=== PATIENT | female | born 1995 | race African-American/Black ===

== ENCOUNTER 2016-10-28 16:58 | Emergency (ER) | payer OTHER ==
[~2016-10-28] VITALS: Ht 160 cm; Wt 68.9 kg
[~2016-10-28 16:58] MED LIST: CIPR-173 PO; TRAM50TA2 PO
[2016-10-28 17:29] VITALS: BP 118/72
[2016-10-29] MEDS ORDERED: VENL75CA78 (15:44)
[2016-10-29] MEDS ORDERED: QUET50TA5 (15:44)
[2016-10-29] MEDS ORDERED: QUET100T46 (15:44)
[2016-10-29] MEDS ORDERED: HYD2T (15:44)
[2016-10-29] MEDS ORDERED: ALPR-229 (15:44)
[2016-10-29] MEDS ORDERED: PREDPOW63 (15:44)
[2016-10-29] MEDS ORDERED: HYDROCO/APAP (15:44)
[2016-10-29] MEDS ORDERED: GABA-339 (15:44)
[2016-10-29] MEDS ORDERED: CIPR-217 (15:44)
== END 2016-10-28 21:45 | disposition left against medical advice (07) ==
LOC: ER 17:04
DX: M79.89 Other specified soft tissue disorders (principal); Z53.21 Procedure and treatment not carried out due to patient leaving prior to being seen by health care provider

== ENCOUNTER 2016-10-31 13:30 | Emergency (ER) | payer OTHER ==
[~2016-10-31] VITALS: Ht 160 cm; Wt 71.2 kg
[~2016-10-31 13:30] MED LIST changes: +ALPR-229; +CIPR-217; +GABA-339; +HYD2T; +HYDROCO/APAP; +PREDPOW63; +QUET100T46; +QUET50TA5; +VENL75CA78
[2016-10-31] MEDS ORDERED: HYDROmorphone HCL 2 MG/ML VL IM ONE (14:00)
[2016-10-31] MEDS ORDERED: ONDANSETRON HCL 4 MG/2 ML VIAL IM ONE (14:00)
[2016-10-31 15:10] VITALS: BP 129/73
== END 2016-10-31 16:03 | disposition home or self-care (01) ==
LOC: EDBD 13:30 → ER 13:33
DX: G89.4 Chronic pain syndrome (principal); M79.7 Fibromyalgia; Z88.0 Allergy status to penicillin; R11.2 Nausea with vomiting, unspecified; M19.90 Unspecified osteoarthritis, unspecified site; Z88.8 Allergy status to other drugs, medicaments and biological substances
CPT/HCPCS: 96372; 99284; J1170; J2405

== ENCOUNTER 2019-04-24 02:54 | Emergency (ER) | payer MEDICAID ==
[~2019-04-24] VITALS: Ht 167.6 cm; Wt 74.8 kg
[2019-04-24] MEDS ORDERED: PROMETHAZINE HCL 25 MG/ML 1ML IV ONE ×2 (05:15→09:15)
[2019-04-24] MEDS ORDERED: HYDROmorphone HCL 2 MG/ML VL IV ONE ×2 (05:15→09:15)
[2019-04-24 06:26] LABS: Albumin 3.2 g/dL (3.4-5.0); Anion Gap 9 (5-15); Blood Urea Nitrogen 8 mg/dL (7-18); Carbon Dioxide 23 mmol/L (21-32); Chloride 111 mmol/L (98-107); Glucose 84 mg/dL (74-106); Potassium 3.2 mmol/L (3.5-5.1); Sodium 143 mmol/L (136-145)
[2019-04-24 06:29] LABS: Alanine Aminotransferase 14 U/L (13-56); Alkaline Phosphatase 118 U/L (45-117); Aspartate Aminotransferase 17 U/L (15-37); Bilirubin, Total 0.2 mg/dL (0.2-1.0); GFR African American 211 mL/min; GFR Non-African American 175 mL/min; Total Protein 6.8 g/dL (6.4-8.2)
[2019-04-24] MEDS ORDERED: LORazepam 2MG/ML-1ML VIAL IV ONE (08:00)
[2019-04-24] MEDS ORDERED: POTASSIUM EFFERVESENT TAB 25 MEQ PO ONE (08:15)
[2019-04-24 09:50] LABS: Basophils # (auto) 0 uL; Eosinophils # (auto) 0 uL; Lymphocytes # (auto) 0.6 uL; Monocytes # (auto) 0.5 uL; Neutrophils # (auto) 1.9 uL; Nucleated Red Blood Cells % 0.2 %
[2019-04-24 09:53] LABS: Basophils % (auto) 0.2 % (0.0-2.0); Eosinophils % (auto) 0.1 % (0.0-7.0); Hematocrit 31.6 % (36.0-46.0); Lymphocytes % (auto) 20.6 % (10.0-50.0); Mean Corpuscular Hgb Conc. 31.8 g/dL (32.0-36.0); Mean Corpuscular Volume 69.2 fL (80.0-100.0); Monocytes % (auto) 16.9 % (0.0-12.0); Neutrophils % (auto) 62.2 % (37.0-80.0); Platelet Count (auto) 299 10^3/uL (140-450); Red Blood Cells 4.56 10^6/uL (4.0-5.20); Red Cell Distribution Width 18.6 % (11.8-14.3)
[2019-04-24] MEDS ORDERED: DexAMETHasone SOD PHOS 4 MG/1ML SDV INJ IV ONE (10:15)
[2019-04-24] MEDS ORDERED: DexAMETHasone SOD PHOS 10MG/1ML VIAL INJ ONE (10:25)
[2019-04-24 10:30] LABS: Urine WBC None Seen /hpf (0 - 5)
[2019-04-24 10:53] LABS: Urine Bacteria FEW /hpf (None Seen); Urine Blood 1+ /uL (Negative); Urine Mucus FEW (None Seen); Urine Specific Gravity 1.013 (1.001-1.035)
[2019-04-24 11:24] VITALS: BP 153/103
[2019-04-24] MEDS ORDERED: ONDANSETRON HCL 4 MG/2 ML VIAL IV ONE (12:00)
[2019-04-24] MEDS ORDERED: SODIUM CHLORIDE 0.9% 1,000 ML IV ONE (12:00)
== END 2019-04-24 12:09 | disposition home or self-care (01) ==
LOC: ER 02:56
DX: M25.562 Pain in left knee (principal); M25.561 Pain in right knee; M06.9 Rheumatoid arthritis, unspecified; E44.1 Mild protein-calorie malnutrition; Z68.26 Body mass index [BMI] 26.0-26.9, adult; E87.6 Hypokalemia; D63.8 Anemia in other chronic diseases classified elsewhere; R42 Dizziness and giddiness; R51 Headache
CPT/HCPCS: 36415; 71045; 80053; 81001; 84484; 84702; 85025; 85045; 93005; 94761; 96374; 96375; 96376; 99284; J1100; J1170; J2060; J2405; J2550; J7030

== ENCOUNTER 2019-05-09 23:16 | Emergency (ER) | payer MEDICAID ==
[~2019-05-09] VITALS: Ht 157.5 cm; Wt 68.0 kg
[2019-05-10 00:14] LABS: Urine Bacteria FEW /hpf (None Seen); Urine Blood Negative /uL (Negative); Urine Mucus FEW (None Seen); Urine Specific Gravity 1.014 (1.001-1.035); Urine WBC 8 /hpf (0 - 5)
[2019-05-10] MEDS ORDERED: HYDROmorphone HCL 2 MG/ML VL IM ONE ×2 (00:15→02:30)
[2019-05-10 01:19] LABS: Albumin 3.3 g/dL (3.4-5.0); Anion Gap 7 (5-15); Aspartate Aminotransferase 25 U/L (15-37); Blood Urea Nitrogen 12 mg/dL (7-18); Calcium 8.9 mg/dL (8.5-10.1); Carbon Dioxide 19 mmol/L (21-32); Chloride 110 mmol/L (98-107); GFR African American 151 mL/min; GFR Non-African American 124 mL/min; Glucose 123 mg/dL (74-106); Potassium 4.8 mmol/L (3.5-5.1); Sodium 136 mmol/L (136-145)
[2019-05-10 01:27] LABS: Alanine Aminotransferase 32 U/L (13-56); Alkaline Phosphatase 142 U/L (45-117); Bilirubin, Total < 0.1 mg/dL (0.2-1.0); Total Protein 7.6 g/dL (6.4-8.2)
[2019-05-10 02:00] VITALS: BP 150/96
== END 2019-05-10 03:44 | disposition home or self-care (01) ==
LOC: EDBD 23:16 → ER 23:18
DX: M79.604 Pain in right leg (principal); M79.605 Pain in left leg; M25.561 Pain in right knee; M25.562 Pain in left knee; M32.9 Systemic lupus erythematosus, unspecified; M06.9 Rheumatoid arthritis, unspecified; R11.2 Nausea with vomiting, unspecified; R51 Headache; R07.9 Chest pain, unspecified; Z88.0 Allergy status to penicillin; Z79.2 Long term (current) use of antibiotics; Z79.899 Other long term (current) drug therapy
CPT/HCPCS: 36415; 71045; 80053; 81001; 81025; 84484; 93005; 96372; 99284; J1170

== ENCOUNTER 2019-05-16 21:46 | Emergency (ER) | payer MEDICAID ==
[~2019-05-16] VITALS: Ht 177.8 cm; Wt 61.2 kg
[2019-05-17] VITALS: BP 159/110
[2019-05-17 00:22] LABS: Basophils # (auto) 0 uL; Eosinophils # (auto) 0 uL; Lymphocytes # (auto) 1.3 uL; Monocytes # (auto) 0.3 uL; Red Cell Distribution Width 19.2 % (11.8-14.3); White Blood Cell 4.3 10^3/uL (4.4-10.8)
[2019-05-17 00:24] LABS: Eosinophils % (auto) 0.7 % (0.0-7.0); Hematocrit 29.3 % (36.0-46.0); Hemoglobin 9.3 g/dL (12.2-16.2); Lymphocytes % (auto) 31.4 % (10.0-50.0); Mean Corpuscular Hemoglobin 22.1 pg (28.0-32.0); Mean Corpuscular Hgb Conc. 31.8 g/dL (32.0-36.0); Mean Corpuscular Volume 69.6 fL (80.0-100.0); Monocytes % (auto) 7.8 % (0.0-12.0); Neutrophils # (auto) 2.5 uL; Neutrophils % (auto) 59.1 % (37.0-80.0); Nucleated Red Blood Cells % 0.1 %; Platelet Count (auto) 153 10^3/uL (140-450)
[2019-05-17 00:37] LABS: Albumin 3.5 g/dL (3.4-5.0); BUN/Creatinine Ratio 24.6; Calcium 8.4 mg/dL (8.5-10.1); Potassium 3.6 mmol/L (3.5-5.1)
[2019-05-17 00:40] LABS: Bilirubin, Total 0.2 mg/dL (0.2-1.0); Total Protein 7.4 g/dL (6.4-8.2)
[2019-05-17] MEDS ORDERED: HYDROmorphone HCL 2 MG/ML VL IV ONE (00:45)
[2019-05-17] MEDS ORDERED: diphenhdrAMINE HCL 50 MG/1 ML VL IV ONE (00:45)
[2019-05-17] MEDS ORDERED: ONDANSETRON HCL 4 MG/2 ML VIAL IV ONE (00:45)
[2019-05-17 01:38] LABS: Urine Bacteria FEW /hpf (None Seen); Urine Blood 1+ /uL (Negative); Urine Specific Gravity 1.016 (1.001-1.035); Urine WBC 6 /hpf (0 - 5)
[2019-06-09] MEDS ORDERED: PRE5T PO (12:58)
[2019-06-09] MEDS ORDERED: FOLI1TAB6 PO (13:04)
[2019-06-09] MEDS ORDERED: MYCO500T3 PO (13:04)
[2019-06-09] MEDS ORDERED: CYAN1TAB14 PO (13:04)
[2019-06-09] MEDS ORDERED: PANT40T PO (13:04)
[2019-06-09] MEDS ORDERED: HYDR-4188 PO (13:04)
[2019-06-09] MEDS ORDERED: FER325T PO (13:04)
== END 2019-05-17 02:44 | disposition home or self-care (01) ==
LOC: EDBD 21:46 → ER 21:51
DX: G89.4 Chronic pain syndrome (principal); M06.9 Rheumatoid arthritis, unspecified; M32.9 Systemic lupus erythematosus, unspecified; E11.9 Type 2 diabetes mellitus without complications
CPT/HCPCS: 36415; 80053; 81001; 85025; 85045; 96374; 96375; 99283; J1170; J1200; J2405; J7030

== ENCOUNTER 2019-05-18 12:40 | Emergency (ER) | payer MEDICAID ==
[~2019-05-18] VITALS: Ht 165.1 cm; Wt 71.2 kg
[2019-05-18 14:35] LABS: Urine Pregnacy Test Negative (Negative)
[2019-05-18 14:40] LABS: Urine Bacteria FEW /hpf (None Seen); Urine Blood 2+ /uL (Negative); Urine Hyaline Cast FEW /lpf (0 - 2); Urine Specific Gravity 1.017 (1.001-1.035); Urine WBC 11 /hpf (0 - 5)
[2019-05-18 14:59] LABS: Alcohol, Urine < 3.0 mg/dL (0-5); Amphetamine Screen, Urine NEGATIVE (NEGATIVE); Barbiturate Scree,Urine NEGATIVE (NEGATIVE); Benzodiazephine Screen, Urine NEGATIVE (NEGATIVE); Cannabinoid Screen, Urine POSITIVE (NEGATIVE); Cocaine Screen, Urine NEGATIVE (NEGATIVE); Opiate Scree,Urine NEGATIVE (NEGATIVE); Phencyclidine Screen, Urine NEGATIVE (NEGATIVE)
[2019-05-18] MEDS ORDERED: SODIUM CHLORIDE 0.9% 1,000 ML IV ONE (16:15)
[2019-05-18] MEDS ORDERED: HYDROmorphone HCL 2 MG/ML VL IM ONE (17:15)
[2019-05-18 17:28] LABS: Mean Corpuscular Volume 68.6 fL (80.0-100.0)
[2019-05-18 17:29] LABS: Hematocrit 33.1 % (36.0-46.0); Hemoglobin 10.5 g/dL (12.2-16.2); Mean Corpuscular Hemoglobin 21.8 pg (28.0-32.0); Mean Corpuscular Hgb Conc. 31.8 g/dL (32.0-36.0); Platelet Count (auto) 394 10^3/uL (140-450); Red Blood Cells 4.82 10^6/uL (4.0-5.20); Red Cell Distribution Width 19.2 % (11.8-14.3)
[2019-05-18 17:30] LABS: Albumin 3.5 g/dL (3.4-5.0); Anion Gap 9 (5-15); Blood Urea Nitrogen 6 mg/dL (7-18); Calcium 8.2 mg/dL (8.5-10.1); Carbon Dioxide 27 mmol/L (21-32); Chloride 106 mmol/L (98-107); Glucose 83 mg/dL (74-106); Sodium 142 mmol/L (136-145)
[2019-05-18 17:31] LABS: Alanine Aminotransferase 38 U/L (13-56); Aspartate Aminotransferase 98 U/L (15-37); BUN/Creatinine Ratio 10.2; GFR African American 162 mL/min; GFR Non-African American 134 mL/min
[2019-05-18 17:33] LABS: Alkaline Phosphatase 127 U/L (45-117); Bilirubin, Total 0.2 mg/dL (0.2-1.0)
[2019-05-18 17:35] LABS: Band Neutrophils % (manual) 0; Basophils % (manual) 0 (0.0-2.0); Blast Cells 0; Eosinophils % (manual) 0 (0-7); Metamyelocytes % 0; Myelocytes % 0; Potassium 2.9 mmol/L (3.5-5.1); Promyelocytes % 0; Reactive Lymphocytes 0
[2019-05-18] MEDS ORDERED: POTASSIUM EFFERVESENT TAB 25 MEQ PO ONE (17:45)
[2019-05-18 18:38] LABS: Lymphocytes % (manual) 20 (10.0-50.0); Monocytes % (manual) 8 (0-12)
[2019-05-18 20:00] VITALS: BP 140/108
== END 2019-05-18 21:24 | disposition home or self-care (01) ==
LOC: ER 12:45
DX: R07.89 Other chest pain (principal); E86.0 Dehydration; F12.10 Cannabis abuse, uncomplicated; E11.9 Type 2 diabetes mellitus without complications; Z88.0 Allergy status to penicillin; Z88.6 Allergy status to analgesic agent; Z88.8 Allergy status to other drugs, medicaments and biological substances
CPT/HCPCS: 36415; 80053; 80307; 81001; 81025; 84484; 85007; 85027; 85045; 93005; 96360; 96372; 99284; J1170; J7030

== ENCOUNTER 2019-05-18 22:23 | Emergency (ER) | payer MEDICAID ==
[~2019-05-18] VITALS: Ht 165.1 cm; Wt 71.2 kg
[2019-05-19 00:32] VITALS: BP 135/86
[2019-05-19] MEDS ORDERED: QUEtiapine FUMARATE 100 MG TAB PO ONE (01:00)
[2019-05-19] MEDS ORDERED: ACETAMINOPHEN 500 MG TAB PO ONE (01:00)
[2019-06-09] MEDS ORDERED: PRE5T PO (12:58)
[2019-06-09] MEDS ORDERED: PANT40T PO (13:04)
[2019-06-09] MEDS ORDERED: FOLI1TAB6 PO (13:04)
[2019-06-09] MEDS ORDERED: HYDR-4188 PO (13:04)
[2019-06-09] MEDS ORDERED: MYCO500T3 PO (13:04)
[2019-06-09] MEDS ORDERED: CYAN1TAB14 PO (13:04)
[2019-06-09] MEDS ORDERED: FER325T PO (13:04)
== END 2019-05-19 01:10 | disposition home or self-care (01) ==
LOC: ER 22:23
DX: F41.9 Anxiety disorder, unspecified (principal); R51 Headache; M19.90 Unspecified osteoarthritis, unspecified site; F12.10 Cannabis abuse, uncomplicated; Z88.0 Allergy status to penicillin; Z88.6 Allergy status to analgesic agent; Z88.8 Allergy status to other drugs, medicaments and biological substances; Z76.0 Encounter for issue of repeat prescription

== ENCOUNTER 2019-05-28 11:27 | Inpatient (IN) | payer MEDICAID ==
[~2019-05-28] VITALS: Ht 165.1 cm; Wt 80.1 kg
[2019-05-28] MEDS ORDERED: SODIUM CHLORIDE 0.9% 1,000 ML IV ONE ×3 (11:56→14:15)
[2019-05-28] MEDS ORDERED: diphenhdrAMINE HCL 50 MG/1 ML VL IV ONE ×2 (12:30→14:15)
[2019-05-28] MEDS ORDERED: HYDROmorphone HCL 2 MG/ML VL IV ONE ×2 (12:30→14:15)
[2019-05-28] MEDS ORDERED: ONDANSETRON HCL 4 MG/2 ML VIAL IV ONE (12:30)
[2019-05-28 12:58] LABS: Basophils # (auto) 0 uL; Eosinophils # (auto) 0 uL; Lymphocytes # (auto) 0.8 uL; Monocytes # (auto) 0.4 uL; Neutrophils # (auto) 1.8 uL
[2019-05-28 13:00] LABS: Basophils % (auto) 0.4 % (0.0-2.0); Hematocrit 28.5 % (36.0-46.0); Lymphocytes % (auto) 27.7 % (10.0-50.0); Mean Corpuscular Hemoglobin 21.2 pg (28.0-32.0); Mean Corpuscular Hgb Conc. 31.5 g/dL (32.0-36.0); Mean Corpuscular Volume 67.2 fL (80.0-100.0); Monocytes % (auto) 11.7 % (0.0-12.0); Neutrophils % (auto) 60.2 % (37.0-80.0); Nucleated Red Blood Cells % 0.1 %; Platelet Count (auto) 448 10^3/uL (140-450); Red Blood Cells 4.24 10^6/uL (4.0-5.20); Red Cell Distribution Width 19.4 % (11.8-14.3)
[2019-05-28 13:26] LABS: Alanine Aminotransferase 43 U/L (13-56); Alkaline Phosphatase 114 U/L (45-117); Anion Gap 8 (5-15); Aspartate Aminotransferase 31 U/L (15-37); BUN/Creatinine Ratio 16.4; Bilirubin, Total 0.1 mg/dL (0.2-1.0); Blood Urea Nitrogen 9 mg/dL (7-18); Calcium 8.4 mg/dL (8.5-10.1); Carbon Dioxide 26 mmol/L (21-32); Chloride 106 mmol/L (98-107); GFR African American 176 mL/min; GFR Non-African American 146 mL/min; Glucose 86 mg/dL (74-106); Sodium 140 mmol/L (136-145); Total Protein 7.3 g/dL (6.4-8.2)
[2019-05-28 13:38] LABS: Urine Bacteria FEW /hpf (None Seen); Urine Blood Negative /uL (Negative); Urine Specific Gravity 1.007 (1.001-1.035); Urine WBC <1 /hpf (0 - 5)
[2019-05-28] MEDS ORDERED: PROMETHAZINE HCL 25 MG/ML 1ML IV PRN (15:30)
[2019-05-28] MEDS ORDERED: MORPHINE SULF INJ 2 MG/ML SYRINGE 1ML IV PRN (15:30)
[2019-05-28] MEDS ORDERED: IPRATROPIUM BROM 0.5 MG/2.5ML INH SOL NEB PRN (15:30)
[2019-05-28] MEDS ORDERED: NITROGLYCERIN 0.4 MG SL TAB SL PRN (15:30)
[2019-05-28] MEDS ORDERED: ALBUTEROL SULF 2.5 MG/0.5ML(0.5%) NEB SOLN NEB PRN (15:30)
[2019-05-28 15:48] VITALS: BP 141/100
--- NOTE | 2019-05-28 15:59 | NUR ---
Respiratory note: PT ASSESMENT DONE FOR Q4PRN TREATMENTS. PT IS AWAKE, ALERT AND RESPONSIVE. NO DISTRESS OR SOD AT THIS TIME. PT ON ROOM AIR SP02 98%. NO TREATMENT INDICATED AT THIS TIME. INFORMED PT TO PUSH CALL BUTTON IF BECOMES SOB AND RT WILL BE PAGED.
[2019-05-28] MEDS: SODIUM CHLORIDE 0.9% 1,000 ML IV SCH (17:22)
--- NOTE | 2019-05-28 17:40 | NUR ---
PATIENT ADMITTED FROM ER. ORIENTED TO TELE UNIT. ROOM 249 BED A. VS WNL. C/O PAIN 9/10 THROUGHOUT BODY REQUESTING BENADRYL AND DILAUDID SOON ALLOWED. EDUCATED PATIENT ON MEDICATION MANAGEMENT AND NON-PHARMACOLOGICAL PAIN MANAGEMENT. PATIENT RESPIRATIONS EVEN AND UNLABORED. FLAT AFFECT NOTED. SEIZURE PRECAUTIONS IN PLACE. BED IN LOWEST LOCKED POSITION. EDUCATED PATIENT ON FALL PRECAUTIONS, PATIENT VERBALIZED UNDERSTANDING, WILL CONTINUE TO MONITOR.
[2019-05-28] MEDS: diphenhdrAMINE HCL 50 MG/1 ML VL IV PRN ×2 (18:18→22:21)
[2019-05-28] MEDS: HYDROmorphone HCL 2 MG/ML VL IV PRN ×2 (18:19→22:21)
[2019-05-28 18:29] VITALS: BP 135/88
--- NOTE | 2019-05-28 18:35 | NUR ---
Respiratory note: AT BEDSIDE TO ASSESS PT FOR PRN TX. TX NOT INDICATED AT THIS TIME. BS ARE CLEAR T/O, HR 110-115. POX 97% ON ROOM AIR. COMMUNICATED PRN ORDERS TO PT. PT ALSO MADE AWARE SHE CAN HAVE ME PAGED AT ANY TIME SHE FEELS SOB OR HAS ANY CONCERN WITH HER BREATHING TO COME FURTHER ASSESS HER. RT NAME AND PAGER ASSIGNMENT WRITTEN ON PTS ROOM BOARD.
[2019-05-28] MEDS ORDERED: DOCU-94 PO (18:54)
--- NOTE | 2019-05-28 19:23 | NUR ---
CARE ENDORSED TO DEIDRA OROSCO.
--- NOTE | 2019-05-28 19:25 | NUR ---
Opening Shift Note Assumed care of patient, awake and alert. No S/S of distress/SOB or pain. Instructed on POC and to call for assist PRN, will continue to monitor for changes Q1hr and PRN.
[2019-05-28 20:00] VITALS: BP 130/72
[2019-05-28 21:51] VITALS: BP 130/72
[2019-05-28 22:00] VITALS: BP 130/72
[2019-05-28] MEDS: HYDROXYCHLOROQUINE SULFATE 200 MG TAB PO SCH (22:21)
[2019-05-28] MEDS: COLCHICINE 0.6 MG CAP PO SCH (22:21)
[2019-05-29] MEDS: SODIUM CHLORIDE 0.9% 1,000 ML IV SCH ×3 (02:07→22:00)
[2019-05-29] MEDS: diphenhdrAMINE HCL 50 MG/1 ML VL IV PRN ×6 (02:11→21:59)
[2019-05-29] MEDS: HYDROmorphone HCL 2 MG/ML VL IV PRN ×6 (02:11→21:59)
[2019-05-29 04:59] VITALS: BP 145/93
--- NOTE | 2019-05-29 07:15 | NUR ---
Open Shift Note Received report on patient, awake and standing in bathroom. Patient shows no signs of distress at this time. Patient returned to bed, discussed POC. Patient states she is waiting for next pain medication. Discussed pain management with patient. Fixed patient's tele stickers to achieve accurate reading. Bed in lowest locked position, side rails up x2 and call light within reach. Patient requested for door to be closed so she can get some sleep. Will continue to monitor.
[2019-05-29 09:00] VITALS: BP 153/90
[2019-05-29] MEDS ORDERED: predniSONE 20 MG TAB PO SCH (10:00)
[2019-05-29] MEDS: MULTIPLE VITAMIN TAB PO SCH (10:00)
[2019-05-29] MEDS: FAMOTIDINE 20 MG TAB PO SCH (10:00)
[2019-05-29] MEDS: FOLIC ACID 1 MG TAB PO SCH (10:00)
[2019-05-29] MEDS: QUEtiapine FUMARATE 100 MG TAB PO SCH (10:07)
[2019-05-29] MEDS: HYDROXYCHLOROQUINE SULFATE 200 MG TAB PO SCH ×2 (10:07→22:37)
[2019-05-29] MEDS: COLCHICINE 0.6 MG CAP PO SCH ×2 (10:08→22:37)
--- NOTE | 2019-05-29 10:10 | NUR ---
Respiratory note: PATIENT ASSESSED FOR PRN MED-NEB TX. MED-NEB NOT INDICATED AT THIS TIME PATIENT IS IN NO ACUTE RESPIRATORY DISTRESS AND DENIES NEED. PATIENT INSTRUCTED TO CALL FOR RT IF SHE FELT THE NEED FOR TX AT A LATER TIME. SPO2 99% R/A
[2019-05-29 13:05] LABS: Basophils # (auto) 0 uL; Basophils % (auto) 0.8 % (0.0-2.0); Eosinophils # (auto) 0 uL; Eosinophils % (auto) 0.2 % (0.0-7.0); Hematocrit 27.6 % (36.0-46.0); Hemoglobin 8.7 g/dL (12.2-16.2); Lymphocytes # (auto) 0.8 uL; Lymphocytes % (auto) 25.7 % (10.0-50.0); Mean Corpuscular Hemoglobin 21.1 pg (28.0-32.0); Mean Corpuscular Hgb Conc. 31.6 g/dL (32.0-36.0); Mean Corpuscular Volume 66.6 fL (80.0-100.0); Monocytes # (auto) 0.3 uL; Monocytes % (auto) 10.5 % (0.0-12.0); Neutrophils # (auto) 1.9 uL; Neutrophils % (auto) 62.8 % (37.0-80.0); Nucleated Red Blood Cells % 0.1 %; Platelet Count (auto) 429 10^3/uL (140-450); Red Blood Cells 4.15 10^6/uL (4.0-5.20); Red Cell Distribution Width 18.7 % (11.8-14.3)
[2019-05-29 17:00] VITALS: BP 144/87
[2019-05-29] MEDS: MYCOPHENOLATE 500 MG TAB PO SCH (22:00)
[2019-05-29 22:10] VITALS: BP 141/93
--- NOTE | 2019-05-29 22:14 | NUR ---
PT ASSESSED FOR PRN MED NEB TX. SPO2 97% ON RA, HR 93. PT DENIES ANY RESPIRATORY DISTRESS. NO TX INDICATED. PT IS AWARE TO HAVE RT PAGED IF TX NEEDED.
[2019-05-29] MEDS: methylPREDNISolone SOD SUCC 40 MG/ML VL IV SCH (22:37)
[2019-05-30] MEDS: diphenhdrAMINE HCL 50 MG/1 ML VL IV PRN ×6 (01:56→21:59)
[2019-05-30] MEDS: HYDROmorphone HCL 2 MG/ML VL IV PRN ×6 (01:56→21:59)
[2019-05-30 05:16] VITALS: BP 140/82
[2019-05-30] MEDS: methylPREDNISolone SOD SUCC 40 MG/ML VL IV SCH ×3 (06:12→21:59)
--- NOTE | 2019-05-30 06:54 | NUR ---
Respiratory note: HR 94, RR 14, SPO2 100% ON RA, BS CLEAR. PRN MED NEB TX NOT INDICATED AT THIS TIME. PT SHOWS NO SIGNS OR SYMPTOMS OF RESPIRATORY DISTRESS. LAB AT BEDSIDE. PT INFORMED TO HIT CALL BUTTON IF FEELING SOB OR WHEEZING.
--- NOTE | 2019-05-30 06:54 | NUR ---
Respiratory note: PT AWAKE AND TAKEN OFF CPAP MACHINE. NO SIGNS OR SYMPTOMS OF RESPIRATORY DISTRESS NOTED. HR 94, RR 14, SPO2 100% ON RA, BS CLEAR. BEDSIDE POX SET UP AND FUNCTIONING PROPERLY. Addendum: 05/30/19 at 0716 by COLLETTE ACUNA RT DISREGARD NOTE: WRONG PT.
[2019-05-30] MEDS: SODIUM CHLORIDE 0.9% 1,000 ML IV SCH (07:37)
[2019-05-30 08:00] VITALS: BP 148/100
[2019-05-30 09:00] VITALS: BP 148/100
[2019-05-30] MEDS: QUEtiapine FUMARATE 100 MG TAB PO SCH (09:56)
[2019-05-30] MEDS: HYDROXYCHLOROQUINE SULFATE 200 MG TAB PO SCH ×2 (09:56→21:59)
[2019-05-30] MEDS: MULTIPLE VITAMIN TAB PO SCH (09:56)
[2019-05-30] MEDS: COLCHICINE 0.6 MG CAP PO SCH ×2 (09:56→21:59)
[2019-05-30] MEDS: FOLIC ACID 1 MG TAB PO SCH (09:56)
[2019-05-30] MEDS: FAMOTIDINE 20 MG TAB PO SCH (09:58)
[2019-05-30] MEDS: MYCOPHENOLATE 500 MG TAB PO SCH ×2 (09:58→22:01)
[2019-05-30 13:00] VITALS: BP 129/71
--- NOTE | 2019-05-30 13:00 | NUR ---
PATIENT REFUSED BLOOD DRAW. ATTEMPTED TO PULL FROM MIDLINE BUT BLOOD RETURN WAS NOT ADEQUATE.
--- NOTE | 2019-05-30 17:00 | NUR ---
Pt refused 1700 vitals. Rn aware .
[2019-05-30 20:00] VITALS: BP 160/104
[2019-05-30 22:00] VITALS: BP 160/104
--- NOTE | 2019-05-30 22:33 | NUR ---
Respiratory note: ASSESSED PT FOR PRN MED NEB TX. PT IS CURRENTLY ON ROOM AIR: HR 84, RR 16, SPO2 97%. PT SHOWS NO S/S OF SOB OR RESPIRATORY DISTRESS. MED NEB TX NOT INDICATED AT THIS TIME. PT AWARE TO CALL FOR RESPIRATORY OF SOB OCCURS. WILL CONTINUE TO MONITOR.
[2019-05-31] MEDS: HYDROmorphone HCL 2 MG/ML VL IV PRN ×6 (02:03→23:03)
[2019-05-31] MEDS: diphenhdrAMINE HCL 50 MG/1 ML VL IV PRN ×6 (02:03→23:03)
[2019-05-31 05:00] VITALS: BP 120/70
[2019-05-31] MEDS: methylPREDNISolone SOD SUCC 40 MG/ML VL IV SCH (06:07)
--- NOTE | 2019-05-31 07:50 | NUR ---
PT RESTING IN BED, NO DISTRESS NOTED. PT REPORTS 6/10 PAIN GENERALIZED IN BODY. PT REPORTS SHE GETS HER PAIN MEDICATION AGAIN AT 1000. PT EDUCATED TO USE CALL LIGHT FOR ASSISTANCE PRN. PT AMBULATED TO BEDSIDE COMMODE AND VOIDED. WILL CONTINUE TO MONITOR.
[2019-05-31 09:34] VITALS: BP 120/70
[2019-05-31] MEDS ORDERED: predniSONE 20 MG TAB PO ONE (10:30)
[2019-05-31] MEDS ORDERED: HYDROmorphone HCL 2 MG/ML VL IV PRN (10:30)
[2019-05-31] MEDS ORDERED: PANTOPRAZOLE 40 MG TAB PO ONE (10:30)
[2019-05-31] MEDS: MULTIPLE VITAMIN TAB PO SCH (10:41)
[2019-05-31] MEDS: FOLIC ACID 1 MG TAB PO SCH (10:41)
[2019-05-31] MEDS: QUEtiapine FUMARATE 100 MG TAB PO SCH (10:41)
[2019-05-31] MEDS: COLCHICINE 0.6 MG CAP PO SCH ×2 (10:42→22:00)
[2019-05-31] MEDS: HYDROXYCHLOROQUINE SULFATE 200 MG TAB PO SCH ×2 (10:42→22:00)
[2019-05-31] MEDS: FAMOTIDINE 20 MG TAB PO SCH (10:42)
[2019-05-31] MEDS: MYCOPHENOLATE 500 MG TAB PO SCH ×2 (10:52→22:00)
--- NOTE | 2019-05-31 11:22 | NUR ---
Nutrition Assessment Notes please see attached link for complete assessment Est. Needs BW [id number] kcal (23-25 kcal/kgBW), 79-86 gms pro (1.0-1.1 gms/kgBW). Will continue to monitor pertinent labs and reassess nutrient need prn Addendum: 05/31/19 at [address] Amended: Links added.
--- NOTE | 2019-05-31 11:52 | NUR ---
DR HANNON SAW PATIENT AND DISCUSSED POC. REPORTS PT WILL BE DISCHARGED TOMORROW.
[2019-05-31 12:04] LABS: Basophils # (auto) 0 uL; Eosinophils # (auto) 0 uL; Hemoglobin 9.3 g/dL (12.2-16.2); Lymphocytes # (auto) 0.6 uL; Monocytes # (auto) 0.4 uL; Neutrophils # (auto) 3.8 uL; Nucleated Red Blood Cells % 0.1 %; White Blood Cell 4.7 10^3/uL (4.4-10.8)
[2019-05-31 12:07] LABS: Basophils % (auto) 0.7 % (0.0-2.0); Eosinophils % (auto) 0.1 % (0.0-7.0); Hematocrit 28.7 % (36.0-46.0); Lymphocytes % (auto) 12.1 % (10.0-50.0); Mean Corpuscular Hemoglobin 21.5 pg (28.0-32.0); Mean Corpuscular Hgb Conc. 32.3 g/dL (32.0-36.0); Mean Corpuscular Volume 66.8 fL (80.0-100.0); Monocytes % (auto) 7.6 % (0.0-12.0); Neutrophils % (auto) 79.5 % (37.0-80.0); Platelet Count (auto) 594 10^3/uL (140-450); Red Cell Distribution Width 18.9 % (11.8-14.3)
[2019-05-31 13:00] VITALS: BP 125/73
[2019-05-31 17:24] VITALS: BP 133/89
[2019-05-31] MEDS: CALCIUM W/VIT D (600MG/400IU) TAB PO SCH ×2 (18:00→18:05)
--- NOTE | 2019-05-31 19:15 | NUR ---
Opening Shift Note Assumed care of patient, awake and alert. No S/S of distress/SOB. Patient instructed on POC and to call for assistance as needed, call light is within reach. Bed is locked in lowest position with side rails up x2 for safety. Will continue to monitor for changes Q1hr and PRN.
--- NOTE | 2019-05-31 19:24 | NUR ---
Respiratory note: At bedside to assess for prn tx, tx not indicated at this time. BS are clear t/o, hr 100-105. rr 12-14, pox 97% on ra. RT name and pager assignment written on pts room board. Will continue to monitor as needed.
[2019-05-31 22:00] VITALS: BP 147/96
[2019-06-01] MEDS: diphenhdrAMINE HCL 50 MG/1 ML VL IV PRN ×5 (03:14→19:16)
[2019-06-01] MEDS: HYDROmorphone HCL 2 MG/ML VL IV PRN ×4 (03:14→15:37)
[2019-06-01 05:00] VITALS: BP 150/108
--- NOTE | 2019-06-01 07:20 | NUR ---
PT RESTING IN BED, NO DISTRESS NOTED. PT IS AGITATED, SHE REPORTS SHE WANTS MILK AND YUE CRACKERS. ITEMS BROUGHT. PT REPORTS SHE WANTS A TURKEY SANDWICH. PT NOTIFIED BREAKFAST WILL BE SOON. PT AGITATED SHE REPORTS SHE HAD TO WAIT A FEW MINUTES FOR HER PAIN MEDS. PAIN MEDS ALREADY GIVEN BY QUALITY OFFICER. PT REPORTS 5/10 PAIN IN BODY. PT ENCOURAGED TO USE CALL LIGHT PRN, WILL CONTINUE TO MONITOR.
[2019-06-01 09:00] VITALS: BP 137/94
[2019-06-01] MEDS: MULTIPLE VITAMIN TAB PO SCH (09:32)
[2019-06-01] MEDS: COLCHICINE 0.6 MG CAP PO SCH ×2 (09:32→22:00)
[2019-06-01] MEDS: QUEtiapine FUMARATE 100 MG TAB PO SCH (09:33)
[2019-06-01] MEDS: HYDROXYCHLOROQUINE SULFATE 200 MG TAB PO SCH ×2 (09:33→22:00)
[2019-06-01] MEDS: MYCOPHENOLATE 500 MG TAB PO SCH ×2 (09:33→22:00)
[2019-06-01] MEDS: FAMOTIDINE 20 MG TAB PO SCH (09:34)
[2019-06-01] MEDS: CALCIUM W/VIT D (600MG/400IU) TAB PO SCH ×2 (09:34→17:58)
[2019-06-01] MEDS: FOLIC ACID 1 MG TAB PO SCH (09:35)
[2019-06-01] MEDS ORDERED: predniSONE 20 MG TAB PO SCH (10:00)
[2019-06-01] MEDS ORDERED: PANTOPRAZOLE 40 MG TAB PO SCH (10:00)
--- NOTE | 2019-06-01 10:23 | NUR ---
DR MCCAULEY SAW PATIENT AND DISCUSSED POC. MD REPORTS PT CAN BE DISCHARGED, PT REPORTS SHE WOULD LIKE TO STAY ONE MORE DAY AND IS NOT FEELING WELL. NEW ORDERS FOR DC TOMORROW, IS, AND HUMIDIFIED 02 PT REPORTS DEEP BREATHS ARE PAINFUL. Addendum: 06/01/19 at 1809 by MAKEDA TOLEDO RN I.S. AT BEDSIDE
[2019-06-01 13:00] VITALS: BP 118/63
--- NOTE | 2019-06-01 14:34 | NUR ---
Respiratory note: PT ASSESSED FOR PRN. PT AWAKE ALERT AND RESPONSIVE. PT FOUND ON 2 LPM NC IN NO DISTRESS.NO COMPLAINT OF SOB. HR 102, RR 20 SP02 100. BS WERE DIMINISHED. INFORMED PT IF BECOMES SOB TO PUSH CALL LIGHT AND RT WILL BE PAGED.
--- NOTE | 2019-06-01 15:50 | NUR ---
PT REPORTS SHE WANTS PAIN MEDICATION AND IS IN 10/10 PAIN. PAIN MEDICATION GIVEN. PT EDUCATED SHE WILL RECEIVE HER PAIN MEDS EVERY 8 HRS INSTEAD OF EVERY 4. PT REPORTS SHE CANT WAIT THAT LONG. PT EDUCATED MD WANTS TO DECREASE DOSAGE TO PREPARE FOR DISCHARGE. PT UPSET. WILL CONTINUE TO MONITOR.
--- NOTE | 2019-06-01 16:59 | NUR ---
LUCRECIA DOLPHIN TRAINER CALLED, HE REPORTS PT HR IN 150'S. HE REPORTS PT AMBULATED TO NURSING STATION TO SPEAK WITH BECCA AND HR WENT UP TO 150'S. WENT TO PT ROOM, PT VOIDING IN REST ROOM AND REPORTS SHE IS IN 10/10 PAIN AND CAN HARDLY WALK. ASSISTED PT TO WHEEL CHAIR WHILE COPYRIGHT EXPERT CHANGED BEDDING, THEN ASSISTED PT TO BED. ASSESSED HR, HR 146 THEN CAME DOWN TO HR 117, 02 99% ON RA. PT REQUESTING INCREASE IN PAIN MEDS. PAIN MEDICATION ALREADY GIVEN. CALLED AND LEFT MESSAGE WITH DR MCCAULEY NOTIFYING . AWAITING CALL BACK. PT EDUCATED BY CHARGE ZAIDA ON PAIN MEDICATION AND PURPOSE OF DECREASING DOSE.
[2019-06-01 17:00] VITALS: BP 139/80
--- NOTE | 2019-06-01 17:40 | NUR ---
DR. MCCAULEY CALLED BACKMD AWARE OF HR IN 150'S AND PATIENT REQUEST FOR ADDITIONAL PAIN MEDICATION. NO NEW ORDERS.
--- NOTE | 2019-06-01 17:59 | NUR ---
PT NOTIFIED NEXT PAIN MEDS CAN BE GIVEN APPROX 11:30. PT APPEARS ANGRY. WILL CONTINUE TO MONITOR.
--- NOTE | 2019-06-01 18:01 | NUR ---
PT REFUSED 1800 CALCIUM.
--- NOTE | 2019-06-01 19:16 | NUR ---
PT CALLED NURSING STATION THREE TIMES WHILE ATTEMPTING TO GIVE REPORT. PT NOTIFIED BY REACTOR OPERATOR THE NURSES ARE CHANGING SHIFT AND GIVING REPORT, BUT NURSE WILL BE THERE SOON. PT REPORTS,"I WANT MY BENADRYL NOW!" PRN BENADRYL GIVEN.
--- NOTE | 2019-06-01 20:41 | NUR ---
PRN MED NEB ASSESSMENT. NO DISTRESS NOTED PT DENIED SOB AT THIS TIME. POX 1005 ON 2L NC HR 100 RR 18. TX NOT GIVEN.
[2019-06-01 22:00] VITALS: BP 160/113
[2019-06-02] MEDS: diphenhdrAMINE HCL 50 MG/1 ML VL IV PRN ×2 (00:12→08:26)
[2019-06-02] MEDS: HYDROmorphone HCL 2 MG/ML VL IV PRN ×2 (00:13→08:26)
[2019-06-02 05:00] VITALS: BP 127/75
--- NOTE | 2019-06-02 06:30 | NUR ---
PT. ASSESSED FOR PRN. MN. TX., NO RESP. DISTRESS OR SOB NOTED. PT. IS SLEEPING AT THIS TIME, BS. ARE CLEAR, TX. NOT INDICATED AT THIS TIME. FN=553,RR=16,SP02=99% ON RA. PT. STATE SHE'S FINE AND DOES NOT WANT A TX.. PT. INSTRUCTED CALL IF TX. IS NEEDED. NO TX. GIVEN.
--- NOTE | 2019-06-02 07:30 | NUR ---
PATIENT COMPLAINING OF GENERALIZED PAIN. INFORMED PATIENT IS NOT DUE FOR PAIN MEDICINE AT THIS TIME. PATIENT UPSET. PERFORMED FULL ASSESSMENT. PATIENT UPDATED ON POC. SEIZURE PRECAUTIONS IN PLACE PER HOSPITAL POLICY.
[2019-06-02 09:00] VITALS: BP 124/83
--- NOTE | 2019-06-02 09:30 | NUR ---
PATIENT STATING SHE WANTS TO LEAVE AMA. INFORMED PATIENT THIS RN WOULD HAVE TO TAKE MIDLINE OUT PER HOSPITAL POLICY. PATIENT STATED SHE WANTED IT LEFT IN. INFORMED THAT I WOULD TALK TO M.D. ABOUT MIDLINE. STATED SHE DID NOT WANT TO STAY. THIS RN ASKED HER TO GO BACK INTO HER ROOM WHILE HE CONTACTED THE M.D.
--- NOTE | 2019-06-02 09:45 | NUR ---
PER Erendira HANNON TAKE MIDLINE OUT.
--- NOTE | 2019-06-02 10:00 | NUR ---
INFORMED PATIENT THAT MIDLINE HAS TO BE REMOVED. PATIENT CONTINUING TO REFUSE STATING THAT [facility] PLACED IT SO THEY HAVE TO TAKE THE MIDLINE OUT.
--- NOTE | 2019-06-02 10:30 | NUR ---
PATIENT ELOPED. LEFT WITH MIDLINE IN PLACE.
--- NOTE | 2019-06-02 10:35 | NUR ---
INFORMED EMERGENCY CONTACT OF PATIENT ELOPEMENT. CALLED [facility].
[2019-06-09] MEDS ORDERED: PRE5T PO (12:58)
[2019-06-09] MEDS ORDERED: HYDR-4188 PO (13:04)
[2019-06-09] MEDS ORDERED: MYCO500T3 PO (13:04)
[2019-06-09] MEDS ORDERED: FER325T PO (13:04)
[2019-06-09] MEDS ORDERED: CYAN1TAB14 PO (13:04)
[2019-06-09] MEDS ORDERED: PANT40T PO (13:04)
[2019-06-09] MEDS ORDERED: FOLI1TAB6 PO (13:04)
== END 2019-06-02 10:30 | disposition left against medical advice (07) | DRG 346 ==
LOC: EDBD 11:27 → ER 11:34 → TELE 11:35 → TELE-EAST 17:46
PROVIDERS: ADMIT Nurse Practitioner Acute Care; ATTEND Internal Medicine
DX: M32.9 Systemic lupus erythematosus, unspecified (principal); E44.1 Mild protein-calorie malnutrition; F11.20 Opioid dependence, uncomplicated; N28.1 Cyst of kidney, acquired; E86.0 Dehydration; G89.4 Chronic pain syndrome; D63.8 Anemia in other chronic diseases classified elsewhere; M06.9 Rheumatoid arthritis, unspecified; D50.9 Iron deficiency anemia, unspecified; F41.9 Anxiety disorder, unspecified; M19.90 Unspecified osteoarthritis, unspecified site; R00.0 Tachycardia, unspecified; Z53.29 Procedure and treatment not carried out because of patient's decision for other reasons; D72.819 Decreased white blood cell count, unspecified; Z68.29 Body mass index [BMI] 29.0-29.9, adult; Z88.1 Allergy status to other antibiotic agents; Z88.5 Allergy status to narcotic agent; Z88.0 Allergy status to penicillin; Z88.8 Allergy status to other drugs, medicaments and biological substances; Z79.899 Other long term (current) drug therapy; Z80.6 Family history of leukemia; Z83.2 Family history of diseases of the blood and blood-forming organs and certain disorders involving the immune mechanism; Z85.6 Personal history of leukemia; Z71.51 Drug abuse counseling and surveillance of drug abuser
CPT/HCPCS: 36415; 71045; 74176; 80053; 81001; 83516; 83615; 84484; 84702; 85025; 85045; 85652; 86141; 86225; 86235; 86850; 86900; 86901; 93005; 93306; 96361; 96374; 96375; 96376; G0378; J2405; J7517

== ENCOUNTER 2019-06-28 08:41 | Emergency (ER) | payer MEDICAID ==
[~2019-06-28] VITALS: Ht 165.1 cm; Wt 68.0 kg
[~2019-06-28 08:41] MED LIST changes: -CIPR-173 PO; -CIPR-217; +CYAN1TAB14 PO; +DOCU-94 PO; +FER325T PO; +FOLI1TAB6 PO; +HYDR-4188 PO; +MYCO500T3 PO; +PANT40T PO; -PREDPOW63; -TRAM50TA2 PO
[2019-06-28] MEDS ORDERED: PROMETHAZINE HCL 25 MG/ML 1ML IM ONE (09:15)
[2019-06-28] MEDS ORDERED: MEPERIDINE HCL (50 MG/ML) 1 ML VIAL IM ONE (09:15)
[2019-06-28 10:13] VITALS: BP 111/69
== END 2019-06-28 10:29 | disposition home or self-care (01) ==
LOC: ER 08:41 → EDBD 08:41 → ER 10:29
DX: S53.402A Unspecified sprain of left elbow, initial encounter (principal); S76.912A Strain of unspecified muscles, fascia and tendons at thigh level, left thigh, initial encounter; S76.012A Strain of muscle, fascia and tendon of left hip, initial encounter; E11.9 Type 2 diabetes mellitus without complications; F12.10 Cannabis abuse, uncomplicated; F41.9 Anxiety disorder, unspecified; Z88.0 Allergy status to penicillin; Z88.1 Allergy status to other antibiotic agents; Z88.6 Allergy status to analgesic agent; Z88.8 Allergy status to other drugs, medicaments and biological substances; Z79.899 Other long term (current) drug therapy; W10.8XXA Fall (on) (from) other stairs and steps, initial encounter; Y93.01 Activity, walking, marching and hiking; Y92.89 Other specified places as the place of occurrence of the external cause; Y99.8 Other external cause status
CPT/HCPCS: 73080; 73552; 96372; 99283; J2175; J2550

== ENCOUNTER 2019-07-13 14:31 | Inpatient (IN) | payer MEDICAID ==
[~2019-07-13] VITALS: Ht 165.1 cm; Wt 78.0 kg
[~2019-07-13 14:31] MED LIST changes: -ALPR-229; +ALPR2TAB6
[2019-07-13 23:58] LABS: Urine Bacteria MANY /hpf (None Seen); Urine Blood TRACE /uL (Negative); Urine Specific Gravity 1.015 (1.001-1.035); Urine WBC 44 /hpf (0 - 5)
[2019-07-14] MEDS ORDERED: FOLIC ACID 1 MG TAB PO ONE
[2019-07-14] MEDS ORDERED: SODIUM CHLORIDE 0.9% 1,000 ML IV ONE
[2019-07-14 00:07] LABS: Alcohol, Urine < 3.0 mg/dL (0-5); Amphetamine Screen, Urine NEGATIVE (NEGATIVE); Barbiturate Scree,Urine NEGATIVE (NEGATIVE); Benzodiazephine Screen, Urine NEGATIVE (NEGATIVE); Cannabinoid Screen, Urine NEGATIVE (NEGATIVE); Cocaine Screen, Urine NEGATIVE (NEGATIVE); Opiate Scree,Urine POSITIVE (NEGATIVE); Phencyclidine Screen, Urine NEGATIVE (NEGATIVE)
[2019-07-14 00:18] LABS: Basophils # (auto) 0.1 uL; Basophils % (auto) 1.3 % (0.0-2.0); Eosinophils # (auto) 0 uL; Eosinophils % (auto) 0.2 % (0.0-7.0); Hematocrit 32.1 % (36.0-46.0); Hemoglobin 10.2 g/dL (12.2-16.2); Lymphocytes # (auto) 0.9 uL; Lymphocytes % (auto) 22.2 % (10.0-50.0); Mean Corpuscular Hgb Conc. 31.8 g/dL (32.0-36.0); Mean Corpuscular Volume 66.2 fL (80.0-100.0); Monocytes # (auto) 0.5 uL; Neutrophils # (auto) 2.6 uL; Neutrophils % (auto) 64.3 % (37.0-80.0); Nucleated Red Blood Cells % 0.2 %; Platelet Count (auto) 349 10^3/uL (140-450); Red Blood Cells 4.86 10^6/uL (4.0-5.20); White Blood Cell 4.1 10^3/uL (4.4-10.8)
[2019-07-14 00:28] LABS: Red Cell Distribution Width 20.3 % (11.8-14.3)
[2019-07-14 00:30] LABS: Albumin 3.6 g/dL (3.4-5.0); Anion Gap 11 (5-15); Calcium 8.5 mg/dL (8.5-10.1); Carbon Dioxide 18 mmol/L (21-32); Chloride 106 mmol/L (98-107); Glucose 106 mg/dL (74-106); Potassium 4.4 mmol/L (3.5-5.1); Sodium 135 mmol/L (136-145)
[2019-07-14 00:43] LABS: Alanine Aminotransferase 37 U/L (13-56); Alkaline Phosphatase 132 U/L (45-117); Aspartate Aminotransferase 47 U/L (15-37); Bilirubin, Total 0.3 mg/dL (0.2-1.0); Blood Urea Nitrogen 6 mg/dL (7-18); GFR African American 140 mL/min; GFR Non-African American 116 mL/min; Total Protein 8.6 g/dL (6.4-8.2)
[2019-07-14] MEDS ORDERED: HYDROmorphone HCL 2 MG/ML VL IV ONE (00:45)
[2019-07-14] MEDS ORDERED: ONDANSETRON HCL 4 MG/2 ML VIAL IV ONE (00:45)
[2019-07-14] MEDS ORDERED: NALBUPHINE HCL 10 MG/1ml INJECTION IV PRN (02:30)
[2019-07-14] MEDS ORDERED: ONDANSETRON HCL 4 MG/2 ML VIAL IV PRN (02:30)
[2019-07-14] MEDS ORDERED: TEMAZEPAM 15 MG CAP PO PRN (02:30)
[2019-07-14] MEDS ORDERED: HYDROmorphone HCL 2 MG TAB PO PRN (02:30)
[2019-07-14] MEDS: SODIUM CHLORIDE 0.9% 1,000 ML IV SCH ×2 (02:48→12:00)
[2019-07-14 04:45] VITALS: BP 121/72
--- NOTE | 2019-07-14 04:45 | NUR ---
MS admit from [facility] admitted to [facility]. No s/s of distress, except pain 9/10 and heart rate 115bpm. Patient oriented to AYSE HICKS RN primary RN, unit, room, bed, and unit policies regarding patient care and visiting hours. Patient placed on 2L NC, weighed by bedscale, and encouraged to call when she needs assistance. Fall and safety precautions in place. Call light within reach and able to use. All questions and concerns addressed, patient verbalized understanding.
[2019-07-14 05:47] VITALS: BP 121/72
--- NOTE | 2019-07-14 06:43 | NUR ---
PHARMACY CALLED PHARMACY CALLED, PHARMACIST STATED NUBAIN IS BACK ORDERED. WILL NOTIFY NURSE/MD TO ADDRESS PAIN MANAGEMENT.
[2019-07-14 09:00] VITALS: BP 108/64
[2019-07-14] MEDS: PANTOPRAZOLE 40 MG TAB PO SCH (09:10)
[2019-07-14] MEDS: HYDROXYCHLOROQUINE SULFATE 200 MG TAB PO SCH ×2 (09:10→21:05)
[2019-07-14] MEDS: FERROUS SULFATE 325 MG TAB PO SCH ×2 (09:10→17:02)
[2019-07-14] MEDS: FOLIC ACID 1 MG TAB PO SCH (09:10)
[2019-07-14] MEDS: LEVOFLOXACIN 500MG 100 ML IV SCH (09:11)
[2019-07-14] MEDS: HYDROmorphone HCL 2 MG/ML VL IV PRN ×4 (09:11→21:01)
[2019-07-14] MEDS: diphenhdrAMINE HCL 50 MG/1 ML VL IV PRN ×4 (09:11→21:02)
[2019-07-14 13:00] VITALS: BP 131/64
[2019-07-14 16:44] VITALS: BP 122/79
--- NOTE | 2019-07-14 16:50 | NUR ---
Upgraded to Tele Paged Dr Montalvo to inform her that while taking patient's vitals, their heart rate went from the 40s up to 110. Dr Montalvo stated to place patient on tele monitoring. Face sheet was faxed to monitor techs and special education secretary made aware.
--- NOTE | 2019-07-14 18:44 | NUR ---
Closing Note Patient lying in bed, shows no signs of distress at this time. Bed in lowest locked position, side rails up x2 and call light within reach.
--- NOTE | 2019-07-14 19:20 | NUR ---
Opening Shift Note Assumed care of patient, awake and alert. No S/S of distress/SOB but complains of 8/10 generalized body pain that she describes as sharp. Instructed on POC and to call for assist PRN, will continue to monitor for changes Q1hr and PRN.
[2019-07-14 22:05] LABS: Protein, Urine 6.7 mg/dL (0.0-11.9)
[2019-07-14 22:22] VITALS: BP 119/75
--- NOTE | 2019-07-15 00:05 | NUR ---
HOSPITALIST PAGE The patient is complaining of gas pain and requested medication for gas relief. Hospitalist has been paged. Addendum: 07/15/19 at 0116 by Geo Correa RN Wrong patient
[2019-07-15] MEDS: HYDROmorphone HCL 2 MG/ML VL IV PRN ×6 (01:02→21:05)
[2019-07-15] MEDS: diphenhdrAMINE HCL 50 MG/1 ML VL IV PRN ×6 (01:03→21:05)
[2019-07-15] MEDS: SODIUM CHLORIDE 0.9% 1,000 ML IV SCH (03:27)
[2019-07-15 05:11] VITALS: BP 119/70
[2019-07-15 09:00] VITALS: BP 106/82
[2019-07-15] MEDS: PANTOPRAZOLE 40 MG TAB PO SCH (09:04)
[2019-07-15] MEDS: FOLIC ACID 1 MG TAB PO SCH (09:04)
[2019-07-15] MEDS: LEVOFLOXACIN 500MG 100 ML IV SCH (09:04)
[2019-07-15] MEDS: FERROUS SULFATE 325 MG TAB PO SCH ×2 (09:04→17:16)
[2019-07-15] MEDS: HYDROXYCHLOROQUINE SULFATE 200 MG TAB PO SCH ×2 (09:04→23:12)
[2019-07-15] MEDS ORDERED: methylPREDNISolone SOD SUCC 40 MG/ML VL IV ONE (12:00)
[2019-07-15 13:00] VITALS: BP 128/80
[2019-07-15] MEDS: MYCOPHENOLATE 500 MG TAB PO SCH ×2 (14:51→23:11)
--- NOTE | 2019-07-15 16:00 | NUR ---
Unable to Obtain Blood Sample [facility] stated they are unable to obtain blood draw from patient. Stated they obtained blood, but the patient refused to continue because it was too painful.
[2019-07-15 17:00] VITALS: BP 123/77
--- NOTE | 2019-07-15 18:48 | NUR ---
Closing Note Patient sitting up in bed, shows no signs of distress at this time. Bed in lowest locked position, side rails up x2 and call light within reach.
--- NOTE | 2019-07-15 19:30 | NUR ---
Opening Shift Note Assumed care of patient, awake and alert. No S/S of distress/SOB. The patient c/o severe generalized body pain which she reports is currently 8/10. Informed the patient on pain medication administration frequency. Patient verbalized understanding. Instructed on POC and to call for assist PRN, will continue to monitor for changes Q1hr and PRN.
[2019-07-15 21:30] VITALS: BP 120/74
--- NOTE | 2019-07-15 22:35 | NUR ---
BLOOD DRAW REFUSAL Per Parimutuel Ticket Cashier, the patient refused blood draw. She stated that she did not want to get her blood drawn at this time.
[2019-07-16] MEDS: diphenhdrAMINE HCL 50 MG/1 ML VL IV PRN ×4 (01:05→13:35)
[2019-07-16] MEDS: HYDROmorphone HCL 2 MG/ML VL IV PRN ×4 (01:05→13:36)
[2019-07-16 04:17] VITALS: BP 120/72
--- NOTE | 2019-07-16 07:55 | NUR ---
OPENING SHIFT NOTE ASSUMED CARE OF PT. PT IS AWAKE AND ALERT. NO SOB OR SIGNS OF DISTRESS NOTED. PT IS ANTICIPATING DISCHARGE TODAY. INSTRUCTED ON POC AND TO CALL FOR HELP PRN. BED IN LOWEST POSITION WITH SIDE RAILS UP X2. CALL LIGHT WITHIN REACH. WILL CONTINUE TO MONITOR.
[2019-07-16 08:11] VITALS: BP 115/77
[2019-07-16] MEDS: HYDROXYCHLOROQUINE SULFATE 200 MG TAB PO SCH (09:28)
[2019-07-16] MEDS: FOLIC ACID 1 MG TAB PO SCH (09:28)
[2019-07-16] MEDS: MYCOPHENOLATE 500 MG TAB PO SCH (09:28)
[2019-07-16] MEDS: FERROUS SULFATE 325 MG TAB PO SCH ×2 (09:28→14:42)
[2019-07-16] MEDS: PANTOPRAZOLE 40 MG TAB PO SCH (09:28)
[2019-07-16] MEDS ORDERED: methylPREDNISolone SOD SUCC 40 MG/ML VL IV SCH (10:00)
[2019-07-16 10:29] VITALS: BP 115/77
[2019-07-16 12:24] VITALS: BP 109/78
--- NOTE | 2019-07-16 14:20 | NUR ---
Discharge instructions given as ordered. Encourage to follow up with PMD as instructed. All questions and concerns addressed. Patient verbalized understanding. Medication reconciliation form completed and copy given to patient. IV removed with catheter intact, pressure dressing applied, ochoa catheter removed. Telemetry unit returned to ICU. No distress noted at time of departure.
== END 2019-07-16 14:20 | disposition home or self-care (01) | DRG 662 ==
LOC: ER 14:39 → WEST WING 14:40 → TELE-WESTW 07-14 04:44
PROVIDERS: ADMIT Nurse Practitioner; ATTEND Internal Medicine Nephrology
DX: D57.00 Hb-SS disease with crisis, unspecified (principal); M32.9 Systemic lupus erythematosus, unspecified; F11.20 Opioid dependence, uncomplicated; M79.7 Fibromyalgia; M06.9 Rheumatoid arthritis, unspecified; E03.9 Hypothyroidism, unspecified; N39.0 Urinary tract infection, site not specified; E11.9 Type 2 diabetes mellitus without complications; E66.9 Obesity, unspecified; G89.4 Chronic pain syndrome; F41.9 Anxiety disorder, unspecified; M19.90 Unspecified osteoarthritis, unspecified site; Z88.6 Allergy status to analgesic agent; Z91.19 Patient's noncompliance with other medical treatment and regimen; Z88.1 Allergy status to other antibiotic agents; Z88.0 Allergy status to penicillin; Z88.8 Allergy status to other drugs, medicaments and biological substances; Z79.899 Other long term (current) drug therapy; Z68.28 Body mass index [BMI] 28.0-28.9, adult
CPT/HCPCS: 36415; 71045; 80053; 80307; 81001; 82570; 82962; 84156; 85025; 85045; 93005; 96374; 96375; G0378; J1956; J2405; J7517

== ENCOUNTER 2019-07-28 08:24 | Emergency (ER) | payer MEDICAID ==
[~2019-07-28] VITALS: Ht 165.1 cm; Wt 73.9 kg
[2019-07-28] MEDS ORDERED: SODIUM CHLORIDE 0.9% 1,000 ML IV ONE ×2 (12:43)
[2019-07-28] MEDS ORDERED: methylPREDNISolone SOD SUCC 125 MG/2 ML VL IV ONE (12:45)
[2019-07-28] MEDS ORDERED: ONDANSETRON HCL 4 MG/2 ML VIAL IV ONE (12:45)
[2019-07-28] MEDS ORDERED: HYDROmorphone HCL 2 MG/ML VL IV ONE (12:45)
[2019-07-28] MEDS ORDERED: ONDANSETRON ODT 4 MG TAB PO ONE (21:15)
[2019-07-28] MEDS ORDERED: HYDROmorphone HCL 2 MG/ML VL IM ONE (21:15)
[2019-07-28] MEDS ORDERED: LIDOCAINE 2%HCL (LOCAL ANESTH.) INJ 20ML MDV IJ ONE (23:45)
[2019-07-28] MEDS ORDERED: LIDOCAINE 2%HCL (LOCAL ANESTH.) INJ 20ML MDV ONE (23:46)
[2019-07-29] MEDS ORDERED: HYDROmorphone HCL 2 MG/ML VL IM ONE ×2 (02:15→05:00)
[2019-07-29] MEDS ORDERED: HYDROmorphone HCL 2 MG/ML VL IV ONE (04:45)
[2019-07-29 06:00] VITALS: BP 122/71
== END 2019-07-29 06:36 | disposition home or self-care (01) ==
LOC: EDBD 08:24 → ER 08:26
DX: G89.4 Chronic pain syndrome (principal); M25.561 Pain in right knee; M25.562 Pain in left knee; R10.9 Unspecified abdominal pain; F12.10 Cannabis abuse, uncomplicated; Z79.899 Other long term (current) drug therapy; Z88.0 Allergy status to penicillin; Z88.1 Allergy status to other antibiotic agents; Z88.6 Allergy status to analgesic agent; Z88.8 Allergy status to other drugs, medicaments and biological substances
CPT/HCPCS: 36556; 71045; 71046; 96372; 99285; J1170; J7030; Q0162

== ENCOUNTER 2019-08-18 17:14 | Emergency (ER) | payer MEDICAID ==
[~2019-08-18] VITALS: Ht 165.1 cm; Wt 73.9 kg
[2019-08-18 23:16] VITALS: BP 152/93
[2019-08-18 23:32] LABS: Urine Bacteria FEW /hpf (None Seen); Urine Blood 2+ /uL (Negative); Urine Specific Gravity 1.015 (1.001-1.035); Urine WBC 6 /hpf (0 - 5)
[2019-08-18] MEDS ORDERED: ONDANSETRON HCL 4 MG/2 ML VIAL IV ONE (23:45)
[2019-08-18] MEDS ORDERED: SODIUM CHLORIDE 0.9% 1,000 ML IV ONE (23:45)
[2019-08-18] MEDS ORDERED: BUTORPHANOL TARTRATE 2 MG/1 ML VIAL IV ONE (23:45)
[2019-08-19 00:55] LABS: Basophils # (auto) 0 uL; Basophils % (auto) 0.2 % (0.0-2.0); Eosinophils # (auto) 0 uL; Lymphocytes # (auto) 0.7 uL; Monocytes # (auto) 0.7 uL
[2019-08-19 00:58] LABS: Eosinophils % (auto) 0.1 % (0.0-7.0); Hematocrit 28.3 % (36.0-46.0); Lymphocytes % (auto) 17.7 % (10.0-50.0); Mean Corpuscular Hemoglobin 20.7 pg (28.0-32.0); Mean Corpuscular Hgb Conc. 31.9 g/dL (32.0-36.0); Mean Corpuscular Volume 64.9 fL (80.0-100.0); Monocytes % (auto) 15.9 % (0.0-12.0); Neutrophils # (auto) 2.7 uL; Neutrophils % (auto) 66.1 % (37.0-80.0); Nucleated Red Blood Cells % 0.5 %; Platelet Count (auto) 403 10^3/uL (140-450); Red Blood Cells 4.36 10^6/uL (4.0-5.20); White Blood Cell 4.2 10^3/uL (4.4-10.8)
[2019-08-19] MEDS ORDERED: BUTORPHANOL TARTRATE 2 MG/1 ML VIAL IM ONE (01:00)
[2019-08-19 01:04] LABS: Red Cell Distribution Width 21.4 % (11.8-14.3)
[2019-08-19 01:13] LABS: Albumin 3.1 g/dL (3.4-5.0); BUN/Creatinine Ratio 13.6; Calcium 8.4 mg/dL (8.5-10.1); Potassium 3.7 mmol/L (3.5-5.1)
[2019-08-19] MEDS ORDERED: BUTORPHANOL TARTRATE 2 MG/1 ML VIAL ONE (01:27)
[2019-08-19 01:29] LABS: Bilirubin, Total 0.1 mg/dL (0.2-1.0); Total Protein 7.1 g/dL (6.4-8.2)
== END 2019-08-19 04:58 | disposition home or self-care (01) ==
LOC: EDBD 17:14 → ER 17:23
DX: D57.1 Sickle-cell disease without crisis (principal); R10.9 Unspecified abdominal pain; M25.50 Pain in unspecified joint; F41.9 Anxiety disorder, unspecified
CPT/HCPCS: 36415; 71045; 80053; 81001; 85025; 85045; 93005; 96372; 99284; J0595

== ENCOUNTER 2019-08-26 08:32 | Emergency (ER) | payer MEDICAID ==
[~2019-08-26] VITALS: Ht 175.3 cm; Wt 68.0 kg
[2019-08-26 09:55] LABS: Eosinophils # (auto) 0 uL; Eosinophils % (auto) 0.1 % (0.0-7.0); Monocytes % (auto) 13.4 % (0.0-12.0); Neutrophils # (auto) 2.5 uL; Nucleated Red Blood Cells % 0.1 %
[2019-08-26 09:57] LABS: Basophils # (auto) 0.1 uL; Basophils % (auto) 2.2 % (0.0-2.0); Hematocrit 29.2 % (36.0-46.0); Hemoglobin 9.4 g/dL (12.2-16.2); Lymphocytes # (auto) 0.9 uL; Lymphocytes % (auto) 22.9 % (10.0-50.0); Mean Corpuscular Hemoglobin 20.6 pg (28.0-32.0); Mean Corpuscular Hgb Conc. 32.1 g/dL (32.0-36.0); Monocytes # (auto) 0.5 uL; Neutrophils % (auto) 61.4 % (37.0-80.0); Platelet Count (auto) 412 10^3/uL (140-450); Red Blood Cells 4.57 10^6/uL (4.0-5.20); White Blood Cell 4.1 10^3/uL (4.4-10.8)
[2019-08-26 09:59] LABS: Red Cell Distribution Width 20.9 % (11.8-14.3)
[2019-08-26 10:09] LABS: Albumin 3.4 g/dL (3.4-5.0); Calcium 8.4 mg/dL (8.5-10.1); Potassium 3.5 mmol/L (3.5-5.1)
[2019-08-26 10:15] LABS: BUN/Creatinine Ratio 6.5; Bilirubin, Total 0.3 mg/dL (0.2-1.0); Total Protein 7.7 g/dL (6.4-8.2)
[2019-08-26] MEDS: HYDROmorphone HCL 2 MG/ML VL IV ONE ×2 (10:39→13:43)
[2019-08-26] MEDS: ONDANSETRON HCL 4 MG/2 ML VIAL IV ONE (10:39)
[2019-08-26] MEDS: diphenhdrAMINE HCL 50 MG/1 ML VL IV ONE ×2 (12:13)
[2019-08-26 13:10] VITALS: BP 148/90
== END 2019-08-26 14:15 | disposition home or self-care (01) ==
LOC: ER 08:32 → EDBD 08:32 → ER 14:15
DX: G89.4 Chronic pain syndrome (principal); R07.89 Other chest pain; M79.7 Fibromyalgia; R51 Headache; M32.9 Systemic lupus erythematosus, unspecified; Z88.0 Allergy status to penicillin; Z88.1 Allergy status to other antibiotic agents; Z88.6 Allergy status to analgesic agent; Z88.8 Allergy status to other drugs, medicaments and biological substances; Z79.899 Other long term (current) drug therapy
CPT/HCPCS: 36415; 80053; 85025; 85045; 93005; 96374; 96375; 96376; 99284; J1170; J1200; J2405

== ENCOUNTER 2019-08-28 10:32 | Emergency (ER) | payer MEDICAID ==
[~2019-08-28] VITALS: Ht 165.1 cm; Wt 73.9 kg
[2019-08-28 13:28] VITALS: BP 114/78
== END 2019-08-28 14:58 | disposition home or self-care (01) ==
LOC: ER 10:32
DX: G89.4 Chronic pain syndrome (principal); F11.20 Opioid dependence, uncomplicated; R19.7 Diarrhea, unspecified; J45.909 Unspecified asthma, uncomplicated; K21.9 Gastro-esophageal reflux disease without esophagitis
CPT/HCPCS: 71046; 93005

== ENCOUNTER 2020-05-20 17:09 | Emergency (ER) | payer MEDICAID ==
[~2020-05-20] VITALS: Ht 165.1 cm; Wt 71.7 kg
[2020-05-20] MEDS ORDERED: SODIUM CHLORIDE 0.9% 1,000 ML IV ONE (18:30)
[2020-05-20] MEDS ORDERED: HYDROmorphone HCL 2 MG/ML VL IV ONE (19:00)
[2020-05-20] MEDS ORDERED: ONDANSETRON HCL 4 MG/2 ML VIAL IV ONE (19:00)
[2020-05-20 19:28] LABS: Urine Bacteria FEW /hpf (None Seen); Urine Blood Negative /uL (Negative); Urine Specific Gravity 1.011 (1.001-1.035); Urine WBC 9 /hpf (0 - 5)
[2020-05-20 19:57] LABS: Alcohol, Urine < 3.0 mg/dL (0-10); Amphetamine Screen, Urine NEGATIVE (NEGATIVE); Barbiturate Scree,Urine NEGATIVE (NEGATIVE); Benzodiazephine Screen, Urine NEGATIVE (NEGATIVE); Cannabinoid Screen, Urine POSITIVE (NEGATIVE); Cocaine Screen, Urine NEGATIVE (NEGATIVE); Opiate Scree,Urine NEGATIVE (NEGATIVE); Phencyclidine Screen, Urine NEGATIVE (NEGATIVE)
[2020-05-20] MEDS ORDERED: levoFLOXacin 500MG 100 ML IV ONE (20:30)
[2020-05-20] MEDS ORDERED: ONDANSETRON ODT 4 MG TAB PO ONE (21:45)
[2020-05-20] MEDS ORDERED: HYDROmorphone HCL 2 MG/ML VL IM ONE (21:45)
[2020-05-21] MEDS ORDERED: HYDROmorphone HCL 2 MG/ML VL IV ONE ×3 (00:15→06:30)
[2020-05-21] MEDS ORDERED: diphenhdrAMINE HCL 50 MG/1 ML VL IV ONE ×2 (01:15→04:00)
[2020-05-21] MEDS ORDERED: LORazepam 2MG/ML-1ML VIAL IV ONE (04:00)
[2020-05-21 07:29] VITALS: BP 121/73
== END 2020-05-21 07:29 | disposition short-term general hospital (02) ==
LOC: ER 17:09
DX: M32.9 Systemic lupus erythematosus, unspecified (principal); F11.20 Opioid dependence, uncomplicated; N39.0 Urinary tract infection, site not specified; E11.9 Type 2 diabetes mellitus without complications; K21.9 Gastro-esophageal reflux disease without esophagitis; Z88.0 Allergy status to penicillin; Z32.02 Encounter for pregnancy test, result negative; Z88.1 Allergy status to other antibiotic agents; Z88.6 Allergy status to analgesic agent; Z88.8 Allergy status to other drugs, medicaments and biological substances; Z20.828 Contact with and (suspected) exposure to other viral communicable diseases
CPT/HCPCS: 36415; 71045; 80307; 81001; 81025; 82962; 87426; 96365; 96372; 96375; 96376; 99285; J1170; J1200; J1956; J2060; J7030; Q0162

== ENCOUNTER 2020-06-09 01:19 | Emergency (ER) | payer MEDICAID ==
[~2020-06-09] VITALS: Ht 175.3 cm; Wt 63.5 kg
[2020-06-09] MEDS ORDERED: LORazepam 2MG/ML-1ML VIAL IV ONE (08:00)
[2020-06-09] MEDS ORDERED: SODIUM CHLORIDE 0.9% 1,000 ML IV ONE ×2 (08:00)
[2020-06-09] MEDS ORDERED: PROMETHAZINE HCL 25 MG/ML 1ML IV ONE (08:00)
[2020-06-09 08:32] LABS: Basophils # (auto) 0 10 ^3/uL (0-0.2); Eosinophils # (auto) 0 10 ^3/uL (0-0.8); Lymphocytes # (auto) 0.8 10 ^3/uL (0.4-5.4); Neutrophils # (auto) 1.5 10 ^3/uL (1.6-8.6); White Blood Cell 2.5 10^3/uL (4.4-10.8)
[2020-06-09 08:35] LABS: Basophils % (auto) 0.5 % (0.0-2.0); Eosinophils % (auto) 0.1 % (0.0-7.0); Hematocrit 32.9 % (36.0-46.0); Hemoglobin 10.7 g/dL (12.2-16.2); Lymphocytes % (auto) 30.8 % (10.0-50.0); Mean Corpuscular Hemoglobin 26.2 pg (28.0-32.0); Mean Corpuscular Hgb Conc. 32.4 g/dL (32.0-36.0); Mean Corpuscular Volume 80.9 fL (80.0-100.0); Monocytes # (auto) 0.3 10 ^3/uL (0-1.3); Monocytes % (auto) 10.3 % (0.0-12.0); Neutrophils % (auto) 58.3 % (37.0-80.0); Nucleated Red Blood Cells % 0.2 %; Platelet Count (auto) 324 10^3/uL (140-450); Red Blood Cells 4.07 10^6/uL (4.0-5.20); Red Cell Distribution Width 17.9 % (11.8-14.3)
[2020-06-09] MEDS ORDERED: HYDROmorphone HCL 2 MG/ML VL IV ONE (08:45)
[2020-06-09 08:49] LABS: Albumin 3.4 g/dL (3.4-5.0); BUN/Creatinine Ratio 9.6; Calcium 8.8 mg/dL (8.5-10.1); Potassium 3.8 mmol/L (3.5-5.1)
[2020-06-09 09:02] LABS: Bilirubin, Total 0.2 mg/dL (0.2-1.0); Total Protein 8.2 g/dL (6.4-8.2)
[2020-06-09 10:00] VITALS: BP 135/87
== END 2020-06-09 12:34 | disposition home or self-care (01) ==
LOC: EDBD 01:19 → ER 01:19
DX: G89.4 Chronic pain syndrome (principal); E11.65 Type 2 diabetes mellitus with hyperglycemia; F41.9 Anxiety disorder, unspecified; J45.909 Unspecified asthma, uncomplicated; K21.9 Gastro-esophageal reflux disease without esophagitis; Z88.6 Allergy status to analgesic agent; Z88.1 Allergy status to other antibiotic agents; Z88.5 Allergy status to narcotic agent; Z88.0 Allergy status to penicillin; Z88.8 Allergy status to other drugs, medicaments and biological substances; Z79.899 Other long term (current) drug therapy; Z87.440 Personal history of urinary (tract) infections; Z98.890 Other specified postprocedural states
CPT/HCPCS: 36415; 71045; 80053; 84702; 85025; 85045; 96361; 96374; 96375; 99284; J1170; J2060; J2550; J7030

== ENCOUNTER 2020-07-08 05:13 | Emergency (ER) | payer MEDICAID ==
[~2020-07-08] VITALS: Ht 165.1 cm; Wt 65.8 kg
[2020-07-08 05:28] VITALS: BP 165/108
== END 2020-07-08 05:37 | disposition left against medical advice (07) ==
LOC: ER 05:13
DX: R11.2 Nausea with vomiting, unspecified (principal); Z53.21 Procedure and treatment not carried out due to patient leaving prior to being seen by health care provider

== ENCOUNTER 2020-11-24 09:59 | Emergency (ER) | payer MEDICAID ==
[~2020-11-24] VITALS: Ht 167.6 cm; Wt 74.8 kg
[~2020-11-24 09:59] MED LIST changes: -HYD2T; +HYDR2TAB3
[2020-11-24] MEDS ORDERED: SODIUM CHLORIDE 0.9% 1,000 ML IV ONE (11:00)
[2020-11-24] MEDS ORDERED: PROCHLORPERAZINE EDISYLATE 5 MG/ML 2ML VIAL IV ONE (11:00)
[2020-11-24] MEDS ORDERED: HYDROmorphone HCL 2 MG/ML VL IV ONE ×2 (11:15→14:30)
[2020-11-24] MEDS ORDERED: diphenhdrAMINE HCL 50 MG/1 ML VL IV ONE ×2 (11:15→14:30)
[2020-11-24] MEDS ORDERED: SODIUM CHLORIDE 0.9% 1,000 ML IVB ONE (11:15)
[2020-11-24 11:30] LABS: Urine Bacteria FEW /hpf (None Seen); Urine Blood Negative /uL (Negative); Urine Hyaline Cast FEW /lpf (0 - 2); Urine Specific Gravity 1.008 (1.001-1.035); Urine WBC 13 /hpf (0 - 5)
[2020-11-24 14:34] LABS: Basophils # (auto) 0 10 ^3/uL (0-0.2); Basophils % (auto) 0.2 % (0.0-2.0); Eosinophils # (auto) 0 10 ^3/uL (0-0.8); Hemoglobin 10.8 g/dL (12.2-16.2); Lymphocytes # (auto) 1.2 10 ^3/uL (0.4-5.4); Monocytes # (auto) 0.7 10 ^3/uL (0-1.3)
[2020-11-24 14:35] LABS: Eosinophils % (auto) 0.1 % (0.0-7.0); Hematocrit 32.2 % (36.0-46.0); Lymphocytes % (auto) 25.5 % (10.0-50.0); Mean Corpuscular Hemoglobin 24.7 pg (28.0-32.0); Mean Corpuscular Hgb Conc. 33.5 g/dL (32.0-36.0); Mean Corpuscular Volume 73.6 fL (80.0-100.0); Monocytes % (auto) 14.5 % (0.0-12.0); Neutrophils # (auto) 2.8 10 ^3/uL (1.6-8.6); Neutrophils % (auto) 59.7 % (37.0-80.0); Nucleated Red Blood Cells % 0.2 %; Platelet Count (auto) 283 10^3/uL (140-450); Red Blood Cells 4.38 10^6/uL (4.0-5.20); White Blood Cell 4.6 10^3/uL (4.4-10.8)
[2020-11-24 14:58] LABS: Red Cell Distribution Width 25.6 % (11.8-14.3)
[2020-11-24 14:59] LABS: Albumin 3.2 g/dL (3.4-5.0); Anion Gap 7 (5-15); Blood Urea Nitrogen 10 mg/dL (7-18); Calcium 8.1 mg/dL (8.5-10.1); Carbon Dioxide 25 mmol/L (21-32); Chloride 107 mmol/L (98-107); Glucose 97 mg/dL (74-106); Potassium 3.6 mmol/L (3.5-5.1); Sodium 139 mmol/L (136-145)
[2020-11-24 15:06] LABS: Alanine Aminotransferase 15 U/L (13-56); Alkaline Phosphatase 80 U/L (45-117); Aspartate Aminotransferase 9 U/L (15-37); BUN/Creatinine Ratio 17.5; Bilirubin, Total 0.2 mg/dL (0.2-1.0); GFR African American 168 mL/min; GFR Non-African American 139 mL/min; Total Protein 6.6 g/dL (6.4-8.2)
[2020-11-24 15:22] LABS: Beta HCG, Quantitative < 1 mlU/mL (1-3); Thyroid Stimulating Hormone 1.88 uIU/mL (0.358-3.74)
[2020-11-24 18:31] VITALS: BP 142/98
== END 2020-11-24 18:35 | disposition home or self-care (01) ==
LOC: ER 09:59 → EDBD 09:59 → ER 18:35
DX: D57.00 Hb-SS disease with crisis, unspecified (principal); E46 Unspecified protein-calorie malnutrition; D64.9 Anemia, unspecified; R07.89 Other chest pain
CPT/HCPCS: 36415; 71046; 80053; 81001; 83735; 84443; 84484; 84702; 85025; 85045; 93005; 96361; 96374; 96375; 96376; 99285; J0780; J1170; J1200; J7030

== ENCOUNTER 2020-12-05 04:54 | Emergency (ER) | payer MEDICAID ==
[~2020-12-05] VITALS: Ht 162.6 cm; Wt 79.8 kg
[~2020-12-05 04:54] MED LIST changes: -QUET100T46; +QUET100T47
[2020-12-05] MEDS ORDERED: HYDROmorphone HCL 2 MG/ML VL IV ONE (05:30)
[2020-12-05] MEDS ORDERED: diphenhdrAMINE HCL 25 MG CAP PO ONE (05:30)
[2020-12-05] MEDS ORDERED: diphenhdrAMINE HCL 50 MG/1 ML VL IV ONE (05:45)
[2020-12-05 06:32] LABS: Basophils # (auto) 0 10 ^3/uL (0-0.2); Basophils % (auto) 0.5 % (0.0-2.0); Eosinophils # (auto) 0 10 ^3/uL (0-0.8); Hemoglobin 10.7 g/dL (12.2-16.2); Lymphocytes # (auto) 0.9 10 ^3/uL (0.4-5.4); Mean Corpuscular Hemoglobin 25.2 pg (28.0-32.0); Monocytes # (auto) 0.4 10 ^3/uL (0-1.3); Red Blood Cells 4.23 10^6/uL (4.0-5.20); White Blood Cell 3.3 10^3/uL (4.4-10.8)
[2020-12-05 06:36] LABS: Eosinophils % (auto) 0.4 % (0.0-7.0); Hematocrit 31.9 % (36.0-46.0); Lymphocytes % (auto) 26.9 % (10.0-50.0); Mean Corpuscular Hgb Conc. 33.5 g/dL (32.0-36.0); Mean Corpuscular Volume 75.3 fL (80.0-100.0); Neutrophils % (auto) 60.2 % (37.0-80.0); Nucleated Red Blood Cells % 0.1 %
[2020-12-05 06:47] LABS: Red Cell Distribution Width 24.6 % (11.8-14.3)
[2020-12-05 06:48] LABS: Calcium 8.3 mg/dL (8.5-10.1); Potassium 3.5 mmol/L (3.5-5.1)
[2020-12-05 06:50] LABS: BUN/Creatinine Ratio 11.3
[2020-12-05] MEDS ORDERED: SODIUM CHLORIDE 0.9% 3,000 ML IV ONE (07:00)
[2020-12-05 08:00] VITALS: BP 124/84
== END 2020-12-05 17:13 | disposition home or self-care (01) ==
LOC: ER 04:54 → EDBD 04:54 → EDUNIT# 04:54 → ER 17:13
DX: M32.9 Systemic lupus erythematosus, unspecified (principal); M79.7 Fibromyalgia; F41.9 Anxiety disorder, unspecified; M19.90 Unspecified osteoarthritis, unspecified site; J45.909 Unspecified asthma, uncomplicated; Z79.899 Other long term (current) drug therapy; Z88.0 Allergy status to penicillin; Z88.5 Allergy status to narcotic agent; Z88.1 Allergy status to other antibiotic agents; Z88.8 Allergy status to other drugs, medicaments and biological substances
CPT/HCPCS: 36415; 71045; 80048; 83605; 85025; 85045; 93005; 96361; 96374; 96375; 99285; J1170; J1200; J7030

== ENCOUNTER 2021-02-04 19:12 | Inpatient (IN) | payer MEDICAID, OTHER ==
[~2021-02-04] VITALS: Ht 165.1 cm; Wt 86.2 kg
[~2021-02-04 19:12] MED LIST changes: +QUET100T46; -QUET100T47
[2021-02-04] MEDS ORDERED: SODIUM CHLORIDE 0.9% 1,000 ML IV ONE (22:00)
[2021-02-04] MEDS ORDERED: ONDANSETRON HCL 4 MG/2 ML VIAL IV ONE (22:00)
[2021-02-04] MEDS ORDERED: HYDROmorphone HCL 2 MG/ML VL IV ONE (22:00)
[2021-02-04 22:27] LABS: Basophils # (auto) 0 10 ^3/uL (0-0.2); Eosinophils # (auto) 0 10 ^3/uL (0-0.8); Eosinophils % (auto) 0.1 % (0.0-7.0); Mean Corpuscular Hemoglobin 24.3 pg (28.0-32.0); Mean Corpuscular Hgb Conc. 33.3 g/dL (32.0-36.0)
[2021-02-04 22:29] LABS: Basophils % (auto) 0.2 % (0.0-2.0); Hematocrit 26.1 % (36.0-46.0); Hemoglobin 8.7 g/dL (12.2-16.2); Lymphocytes # (auto) 1.3 10 ^3/uL (0.4-5.4); Lymphocytes % (auto) 27.2 % (10.0-50.0); Monocytes # (auto) 0.4 10 ^3/uL (0-1.3); Monocytes % (auto) 7.8 % (0.0-12.0); Neutrophils # (auto) 3.2 10 ^3/uL (1.6-8.6); Neutrophils % (auto) 64.7 % (37.0-80.0); Nucleated Red Blood Cells % 0.2 %; Red Blood Cells 3.58 10^6/uL (4.0-5.20); Red Cell Distribution Width 18.9 % (11.8-14.3); White Blood Cell 4.9 10^3/uL (4.4-10.8)
[2021-02-04 22:46] LABS: Albumin 3.1 g/dL (3.4-5.0); Calcium 8.9 mg/dL (8.5-10.1); Potassium 3.6 mmol/L (3.5-5.1)
[2021-02-04 22:52] LABS: BUN/Creatinine Ratio 12.5; Bilirubin, Total 0.2 mg/dL (0.2-1.0); Total Protein 7.3 g/dL (6.4-8.2)
[2021-02-04] MEDS ORDERED: IOHEXOL 300 MG/ML 100ML BOTTLE IJ ONE (23:06)
[2021-02-05 00:38] LABS: Urine Bacteria FEW /hpf (None Seen); Urine Blood Negative /uL (Negative); Urine Specific Gravity 1.028 (1.001-1.035); Urine WBC 27 /hpf (0 - 5)
[2021-02-05] MEDS ORDERED: HYDROmorphone HCL 2 MG/ML VL IV ONE ×2 (02:00→08:45)
[2021-02-05] MEDS ORDERED: HYDROmorphone HCL 2 MG TAB PO PRN (02:30)
[2021-02-05] MEDS ORDERED: SODIUM CHLORIDE 0.9% 1,000 ML IV SCH (02:30)
[2021-02-05] MEDS ORDERED: HYDROcodone-ACET 5/325MG TAB PO PRN (02:45)
[2021-02-05] MEDS ORDERED: TEMAZEPAM 15 MG CAP PO PRN (02:45)
[2021-02-05] MEDS ORDERED: ONDANSETRON HCL 4 MG/2 ML VIAL IV PRN (02:45)
[2021-02-05] MEDS ORDERED: ACETAMINOPHEN 325 MG TAB PO PRN (02:45)
[2021-02-05 04:00] VITALS: BP 146/99
[2021-02-05 05:20] VITALS: BP 146/99
[2021-02-05] MEDS ORDERED: PRED10TA PO (05:35)
[2021-02-05] MEDS ORDERED: OXY5T PO (05:35)
[2021-02-05 09:00] VITALS: BP 155/98
[2021-02-05] MEDS ORDERED: hydrOXYchloroQUINE SULFATE 200 MG TAB PO SCH (10:00)
[2021-02-05 10:34] LABS: Basophils # (auto) 0 10 ^3/uL (0-0.2); Eosinophils # (auto) 0 10 ^3/uL (0-0.8); Hemoglobin 8.9 g/dL (12.2-16.2); Lymphocytes # (auto) 1.1 10 ^3/uL (0.4-5.4); Mean Corpuscular Hemoglobin 24.2 pg (28.0-32.0); Mean Corpuscular Hgb Conc. 33.6 g/dL (32.0-36.0); Monocytes # (auto) 0.4 10 ^3/uL (0-1.3); Neutrophils # (auto) 2.2 10 ^3/uL (1.6-8.6); Red Cell Distribution Width 19.2 % (11.8-14.3); White Blood Cell 3.7 10^3/uL (4.4-10.8)
[2021-02-05 10:36] LABS: Basophils % (auto) 0.6 % (0.0-2.0); Eosinophils % (auto) 0.3 % (0.0-7.0); Hematocrit 26.4 % (36.0-46.0); Lymphocytes % (auto) 28.7 % (10.0-50.0); Monocytes % (auto) 11.1 % (0.0-12.0); Neutrophils % (auto) 59.3 % (37.0-80.0); Nucleated Red Blood Cells % 0.1 %; Red Blood Cells 3.66 10^6/uL (4.0-5.20)
[2021-02-05 10:49] LABS: Calcium 8.6 mg/dL (8.5-10.1); Potassium 3.9 mmol/L (3.5-5.1)
[2021-02-05 10:53] LABS: BUN/Creatinine Ratio 8.8; Bilirubin, Total 0.2 mg/dL (0.2-1.0); Total Protein 7.2 g/dL (6.4-8.2)
[2021-02-05] MEDS: FAMOTIDINE 20 MG TAB PO SCH ×2 (11:27→21:50)
[2021-02-05] MEDS: LISINOPRIL 20 MG TAB PO SCH (11:28)
[2021-02-05] MEDS: FOLIC ACID 1 MG TAB PO SCH (11:28)
[2021-02-05] MEDS: levoFLOXacin 500MG 100 ML IV SCH (11:28)
[2021-02-05] MEDS: D5W/SOD CHL 0.45% 1,000 ML IV SCH ×2 (12:01→19:00)
[2021-02-05] MEDS: HYDROmorphone HCL 2 MG/ML VL IV PRN ×3 (12:02→18:58)
[2021-02-05] MEDS: MYCOPHENOLATE 500 MG TAB PO SCH ×3 (12:07→22:00)
[2021-02-05 12:37] VITALS: BP 138/100
[2021-02-05 17:00] VITALS: BP 98/40
[2021-02-05 22:00] VITALS: BP 91/45
[2021-02-06] MEDS: HYDROmorphone HCL 2 MG/ML VL IV PRN ×4 (00:10→09:32)
[2021-02-06 00:12] VITALS: BP 98/62
[2021-02-06] MEDS: D5W/SOD CHL 0.45% 1,000 ML IV SCH ×2 (03:12→11:00)
[2021-02-06 05:00] VITALS: BP 101/53
[2021-02-06 09:00] VITALS: BP 115/60
[2021-02-06] MEDS: FAMOTIDINE 20 MG TAB PO SCH ×3 (09:30→21:09)
[2021-02-06] MEDS: FOLIC ACID 1 MG TAB PO SCH ×2 (09:30→10:00)
[2021-02-06] MEDS: levoFLOXacin 500MG 100 ML IV SCH (09:30)
[2021-02-06] MEDS: LISINOPRIL 20 MG TAB PO SCH ×2 (09:31→10:00)
[2021-02-06] MEDS: MYCOPHENOLATE 500 MG TAB PO SCH ×2 (10:00→21:09)
[2021-02-06] MEDS ORDERED: HYDROmorphone HCL 2 MG TAB PO PRN (10:30)
[2021-02-06] MEDS ORDERED: HYDROmorphone HCL 2 MG TAB ONE (10:31)
[2021-02-06] MEDS ORDERED: levoFLOXacin 500 MG TAB PO ONE (10:45)
[2021-02-06 13:00] VITALS: BP 118/69
[2021-02-06] MEDS: HYDROmorphone HCL 2 MG TAB PO PRN ×2 (17:05→21:05)
[2021-02-06 22:00] VITALS: BP 121/80
[2021-02-07] MEDS: HYDROmorphone HCL 2 MG TAB PO PRN ×3 (01:01→10:37)
[2021-02-07 05:00] VITALS: BP 128/81
[2021-02-07] MEDS: FOLIC ACID 1 MG TAB PO SCH (09:19)
[2021-02-07] MEDS: LISINOPRIL 20 MG TAB PO SCH (09:20)
[2021-02-07] MEDS: MYCOPHENOLATE 500 MG TAB PO SCH (09:20)
[2021-02-07] MEDS: FAMOTIDINE 20 MG TAB PO SCH (09:20)
[2021-02-07] MEDS ORDERED: levoFLOXacin 500 MG TAB PO SCH (10:00)
[2021-02-07 11:53] VITALS: BP 115/60
== END 2021-02-07 14:15 | disposition home or self-care (01) | DRG 662 ==
LOC: ER 19:13 → CENTRAL 02-05 03:29 → ER 02-05 03:52 → CENTRAL 02-05 03:52
PROVIDERS: ADMIT Nurse Practitioner; ATTEND Internal Medicine
DX: D57.00 Hb-SS disease with crisis, unspecified (principal); F11.20 Opioid dependence, uncomplicated; N30.00 Acute cystitis without hematuria; E11.9 Type 2 diabetes mellitus without complications; F12.90 Cannabis use, unspecified, uncomplicated; L93.0 Discoid lupus erythematosus; G89.4 Chronic pain syndrome; F41.9 Anxiety disorder, unspecified; D63.8 Anemia in other chronic diseases classified elsewhere; Z20.822 Contact with and (suspected) exposure to COVID-19; I25.10 Atherosclerotic heart disease of native coronary artery without angina pectoris; M19.90 Unspecified osteoarthritis, unspecified site; Z79.899 Other long term (current) drug therapy; Z68.31 Body mass index [BMI] 31.0-31.9, adult; Z88.0 Allergy status to penicillin; Z88.8 Allergy status to other drugs, medicaments and biological substances; Z88.6 Allergy status to analgesic agent
CPT/HCPCS: 36415; 71045; 74177; 76830; 76856; 80053; 81001; 81025; 83605; 83690; 83735; 84702; 85025; 85045; 85049; 85652; 87040; 87086; 87426; 96361; 96374; 96375; 96376; G0378; J1956; J2405; J7517

== ENCOUNTER 2022-12-18 08:07 | Inpatient (IN) | payer MEDICAID, OTHER ==
[~2022-12-18] VITALS: Ht 170.2 cm; Wt 67.0 kg
[~2022-12-18 08:07] MED LIST changes: +OXY5T PO; +PRED10TA PO; -QUET100T46; +QUET100T47
[2022-12-18] MEDS ORDERED: D5W/SOD CHL 0.45% 1,000 ML IV ONE (08:45)
[2022-12-18] MEDS ORDERED: diphenhdrAMINE HCL 50 MG/1 ML VL IV ONE (08:45)
[2022-12-18] MEDS ORDERED: HYDROmorphone HCL 2 MG/ML VL/or syr IV ONE ×3 (08:45→11:00)
[2022-12-18 08:50] LABS: Basophils # (auto) 0 10 ^3/uL (0-0.2); Basophils % (auto) 0.6 % (0.0-2.0); Eosinophils # (auto) 0 10 ^3/uL (0-0.8); Eosinophils % (auto) 0.2 % (0.0-7.0); Hematocrit 36.8 % (36.0-46.0); Lymphocytes # (auto) 1.1 10 ^3/uL (0.4-5.4); Lymphocytes % (auto) 22.9 % (10.0-50.0); Mean Corpuscular Hemoglobin 23.9 pg (28.0-32.0); Mean Corpuscular Hgb Conc. 32.7 g/dL (32.0-36.0); Mean Corpuscular Volume 72.9 fL (80.0-100.0); Monocytes # (auto) 0.6 10 ^3/uL (0-1.3); Monocytes % (auto) 13.4 % (0.0-12.0); Neutrophils % (auto) 62.9 % (37.0-80.0); Nucleated Red Blood Cells % 0.3 %; Red Blood Cells 5.04 10^6/uL (4.0-5.20); Red Cell Distribution Width 19.4 % (11.8-14.3); White Blood Cell 4.7 10^3/uL (4.4-10.8)
[2022-12-18 09:16] LABS: Albumin 2.4 g/dL (3.4-5.0); Calcium 6.5 mg/dL (8.5-10.1)
[2022-12-18 09:19] LABS: BUN/Creatinine Ratio 19.6 (10.0-20.0); Bilirubin, Total 0.2 mg/dL (0.2-1.0); Total Protein 5.6 g/dL (6.4-8.2)
[2022-12-18 09:35] LABS: Potassium 2.6 mmol/L (3.5-5.1)
[2022-12-18] MEDS ORDERED: POTASSIUM CHL 20MEQ/100ML 100 ML IV ONE (09:45)
[2022-12-18] MEDS: POTASSIUM CHL 20 Meq TABLET PO ONE ×2 (09:51→10:00)
[2022-12-18] MEDS ORDERED: POTASSIUM EFFERVESENT TAB 25 MEQ PO ONE (10:15)
[2022-12-18] MEDS ORDERED: CEFEPIME 1GM/ 50ML 50 ML IV ONE (10:45)
[2022-12-18] MEDS ORDERED: VANCOMYCIN 1GM/250ML 250 ML IV ONE (10:45)
[2022-12-18] MEDS ORDERED: levoFLOXacin 500MG 100 ML IV ONE (11:00)
[2022-12-18] MEDS ORDERED: HYDROcodone-ACET 5/325MG TAB PO PRN (13:30)
[2022-12-18] MEDS ORDERED: HYDROmorphone HCL 2 MG/ML VL/or syr IV PRN (13:30)
[2022-12-18] MEDS ORDERED: MORPHINE SULFATE INJ 2 MG/ml SYRG IV PRN (13:30)
[2022-12-18] MEDS ORDERED: ACETAMINOPHEN 325 MG TAB PO PRN (13:30)
[2022-12-18] MEDS ORDERED: ONDANSETRON HCL 4 MG/2 ML VIAL IV PRN (13:30)
[2022-12-18] MEDS ORDERED: NITROGLYCERIN 0.4 MG SL TAB SL PRN (13:30)
[2022-12-18] MEDS ORDERED: DOCUSATE SOD 100 MG CAP PO PRN (13:30)
[2022-12-18 13:45] LABS: Urine Bacteria NONE SEEN /hpf (None Seen); Urine Blood Negative /uL (Negative); Urine WBC 1 /hpf (0 - 5)
[2022-12-18] MEDS ORDERED: HYDROmorphone HCL 2 MG TAB PO PRN (14:45)
[2022-12-18] MEDS: HYDROmorphone HCL 2 MG/ML VL/or syr IV PRN ×3 (16:40→21:02)
[2022-12-18] MEDS: D5W/SOD CHL 0.45% 1,000 ML IV SCH (20:18)
[2022-12-19] MEDS: HYDROmorphone HCL 2 MG/ML VL/or syr IV PRN ×6 (01:13→21:24)
[2022-12-19] MEDS: D5W/SOD CHL 0.45% 1,000 ML IV SCH ×3 (04:17→20:25)
[2022-12-19 10:18] VITALS: BP 148/98
[2022-12-19 13:00] VITALS: BP 148/98
[2022-12-19] MEDS: oxyCODONE HCL 5MG TAB PO PRN (15:23)
[2022-12-19 16:58] VITALS: BP 139/89
[2022-12-19 17:00] VITALS: BP 139/89
[2022-12-19 18:27] LABS: Albumin 2.9 g/dL (3.4-5.0); Calcium 7.9 mg/dL (8.5-10.1); Magnesium 2.1 mg/dL (1.6-2.6); Potassium 3.5 mmol/L (3.5-5.1)
[2022-12-19 18:30] LABS: BUN/Creatinine Ratio 11.1 (10.0-20.0); Bilirubin, Total 0.1 mg/dL (0.2-1.0); Total Protein 6.8 g/dL (6.4-8.2)
[2022-12-19 22:00] VITALS: BP 149/97
[2022-12-20] MEDS: oxyCODONE HCL 5MG TAB PO PRN ×5 (00:21→21:21)
[2022-12-20] MEDS: HYDROmorphone HCL 2 MG/ML VL/or syr IV PRN ×6 (01:38→22:39)
[2022-12-20] MEDS: D5W/SOD CHL 0.45% 1,000 ML IV SCH ×3 (04:38→20:04)
[2022-12-20 05:00] VITALS: BP 150/107
[2022-12-20 08:00] VITALS: BP 140/91
[2022-12-20 09:00] VITALS: BP 140/91
[2022-12-20 13:00] VITALS: BP 139/89
[2022-12-20 17:00] VITALS: BP 138/90
[2022-12-20] MEDS: DOCUSATE SOD 100 MG CAP PO SCH (21:39)
[2022-12-20] MEDS: VENLAFAXINE 75 MG PO SCH (21:39)
[2022-12-20] MEDS: FERROUS SULFATE 325mg EC TAB PO SCH (21:39)
[2022-12-20] MEDS: MYCOPHENOLATE 500 MG TAB PO SCH (21:39)
[2022-12-20] MEDS: ALPRAZolam 0.25 MG TAB PO SCH (21:40)
[2022-12-20] MEDS: GABAPENTIN 300 MG CAP PO SCH (21:40)
[2022-12-20] MEDS: QUEtiapine FUMARATE 100 MG TAB PO SCH (21:40)
[2022-12-20] MEDS: hydrOXYchloroQUINE SULFATE 200 MG TAB PO SCH (21:40)
[2022-12-20 22:00] VITALS: BP 148/102
[2022-12-21] MEDS: oxyCODONE HCL 5MG TAB PO PRN ×5 (01:55→21:27)
[2022-12-21] MEDS: HYDROmorphone HCL 2 MG/ML VL/or syr IV PRN ×7 (03:26→20:03)
[2022-12-21] MEDS: ALPRAZolam 0.25 MG TAB PO SCH ×3 (06:00→22:00)
[2022-12-21] MEDS: GABAPENTIN 300 MG CAP PO SCH ×3 (06:00→22:00)
[2022-12-21 08:00] VITALS: BP 139/94
[2022-12-21 08:05] LABS: CRP High Sensitivity 4.93 mg/dL (< 0.3)
[2022-12-21] MEDS: FERROUS SULFATE 325mg EC TAB PO SCH ×2 (09:42→22:00)
[2022-12-21] MEDS: DOCUSATE SOD 100 MG CAP PO SCH ×2 (09:43→22:00)
[2022-12-21] MEDS: VENLAFAXINE 75 MG PO SCH ×2 (09:43→22:00)
[2022-12-21] MEDS: MYCOPHENOLATE 500 MG TAB PO SCH ×2 (09:43→22:00)
[2022-12-21] MEDS: hydrOXYchloroQUINE SULFATE 200 MG TAB PO SCH ×2 (09:43→22:00)
[2022-12-21] MEDS: PANTOPRAZOLE 40 MG TAB PO SCH (09:43)
[2022-12-21] MEDS: B-COMPLEX W/ C & FOLIC ACID(NEPHROVITE TAB) PO SCH (09:43)
[2022-12-21] MEDS: QUEtiapine FUMARATE 100 MG TAB PO SCH ×2 (09:43→22:00)
[2022-12-21] MEDS: D5W/SOD CHL 0.45% 1,000 ML IV SCH ×2 (12:00→15:00)
[2022-12-21 13:00] VITALS: BP 155/105
[2022-12-21 17:00] VITALS: BP 141/94
[2022-12-21 21:42] LABS: Urine WBC None Seen /hpf (0 - 5)
[2022-12-21 21:50] LABS: Urine Bacteria NONE SEEN /hpf (None Seen); Urine Blood Negative /uL (Negative); Urine Hyaline Cast FEW /lpf (0 - 2); Urine Specific Gravity 1.013 (1.001-1.035)
[2022-12-21 21:57] LABS: Alcohol, Urine < 3.0 mg/dL (0-10); Amphetamine Screen, Urine NEGATIVE (NEGATIVE); Barbiturate Scree,Urine NEGATIVE (NEGATIVE); Benzodiazephine Screen, Urine NEGATIVE (NEGATIVE); Cocaine Screen, Urine NEGATIVE (NEGATIVE); Opiate Scree,Urine POSITIVE (NEGATIVE); Phencyclidine Screen, Urine NEGATIVE (NEGATIVE)
[2022-12-21 22:00] VITALS: BP 127/89
[2022-12-21 22:06] LABS: Cannabinoid Screen, Urine POSITIVE (NEGATIVE)
[2022-12-22] MEDS: D5W/SOD CHL 0.45% 1,000 ML IV SCH ×3 (01:00→17:10)
[2022-12-22] MEDS: HYDROmorphone HCL 2 MG/ML VL/or syr IV PRN ×6 (01:27→21:12)
[2022-12-22] MEDS: oxyCODONE HCL 5MG TAB PO PRN ×4 (02:32→23:02)
[2022-12-22 05:00] VITALS: BP 124/82
[2022-12-22] MEDS: GABAPENTIN 300 MG CAP PO SCH ×3 (06:00→21:21)
[2022-12-22] MEDS: ALPRAZolam 0.25 MG TAB PO SCH ×3 (06:00→21:22)
[2022-12-22] MEDS ORDERED: IOHEXOL 300 MG/ML 100ML BOTTLE IJ ONE (06:12)
[2022-12-22 08:00] VITALS: BP 139/94
[2022-12-22 09:00] VITALS: BP 123/86
[2022-12-22] MEDS: MYCOPHENOLATE 500 MG TAB PO SCH ×2 (09:10→21:21)
[2022-12-22] MEDS: FERROUS SULFATE 325mg EC TAB PO SCH ×2 (09:10→21:20)
[2022-12-22] MEDS: DOCUSATE SOD 100 MG CAP PO SCH ×2 (09:10→21:21)
[2022-12-22] MEDS: VENLAFAXINE 75 MG PO SCH ×2 (09:10→21:20)
[2022-12-22] MEDS: hydrOXYchloroQUINE SULFATE 200 MG TAB PO SCH ×2 (09:11→21:22)
[2022-12-22] MEDS: B-COMPLEX W/ C & FOLIC ACID(NEPHROVITE TAB) PO SCH (09:11)
[2022-12-22] MEDS: PANTOPRAZOLE 40 MG TAB PO SCH (09:11)
[2022-12-22] MEDS: QUEtiapine FUMARATE 100 MG TAB PO SCH ×2 (10:00→21:22)
[2022-12-22 13:22] VITALS: BP 131/91
[2022-12-22 17:00] VITALS: BP 179/113
[2022-12-22] MEDS: methylPREDNISolone SOD SUCC 40 MG/ML VL IV SCH (21:20)
[2022-12-22 22:22] VITALS: BP 143/99
[2022-12-23] MEDS: HYDROmorphone HCL 2 MG/ML VL/or syr IV PRN ×5 (03:20→19:42)
[2022-12-23] MEDS: oxyCODONE HCL 5MG TAB PO PRN ×4 (04:34→21:06)
[2022-12-23 05:00] VITALS: BP 159/100
[2022-12-23] MEDS: GABAPENTIN 300 MG CAP PO SCH ×3 (06:00→22:00)
[2022-12-23] MEDS: ALPRAZolam 0.25 MG TAB PO SCH ×3 (06:00→22:00)
[2022-12-23] MEDS: D5W/SOD CHL 0.45% 1,000 ML IV SCH (07:38)
[2022-12-23 09:00] VITALS: BP 128/88
[2022-12-23] MEDS: B-COMPLEX W/ C & FOLIC ACID(NEPHROVITE TAB) PO SCH (10:00)
[2022-12-23] MEDS: QUEtiapine FUMARATE 100 MG TAB PO SCH ×2 (10:00→22:00)
[2022-12-23] MEDS: MYCOPHENOLATE 500 MG TAB PO SCH ×2 (10:00→22:00)
[2022-12-23] MEDS: hydrOXYchloroQUINE SULFATE 200 MG TAB PO SCH ×2 (10:00→22:00)
[2022-12-23] MEDS: VENLAFAXINE 75 MG PO SCH ×2 (10:00→22:00)
[2022-12-23] MEDS: PANTOPRAZOLE 40 MG TAB PO SCH (10:00)
[2022-12-23] MEDS: methylPREDNISolone SOD SUCC 40 MG/ML VL IV SCH (10:00)
[2022-12-23] MEDS: FERROUS SULFATE 325mg EC TAB PO SCH ×2 (10:00→22:00)
[2022-12-23] MEDS: DOCUSATE SOD 100 MG CAP PO SCH ×2 (10:00→22:00)
[2022-12-23 13:00] VITALS: BP 144/100
[2022-12-23 16:40] VITALS: BP 138/91
[2022-12-23] MEDS: DexAMETHasone SOD PHOS 4 MG/1ML SDV INJ IV SCH (21:05)
[2022-12-23 22:00] VITALS: BP 141/100
[2022-12-24] MEDS: HYDROmorphone HCL 2 MG/ML VL/or syr IV PRN ×6 (00:36→21:29)
[2022-12-24] MEDS: oxyCODONE HCL 5MG TAB PO PRN ×4 (02:19→14:52)
[2022-12-24 05:05] VITALS: BP 153/105
[2022-12-24] MEDS: GABAPENTIN 300 MG CAP PO SCH ×3 (06:00→22:00)
[2022-12-24] MEDS: ALPRAZolam 0.25 MG TAB PO SCH ×3 (06:00→22:00)
[2022-12-24] MEDS: DexAMETHasone SOD PHOS 4 MG/1ML SDV INJ IV SCH ×2 (06:11→14:51)
[2022-12-24 08:30] VITALS: BP 170/113
[2022-12-24] MEDS: MYCOPHENOLATE 500 MG TAB PO SCH ×2 (10:00→22:00)
[2022-12-24] MEDS: FERROUS SULFATE 325mg EC TAB PO SCH ×2 (10:00→22:00)
[2022-12-24] MEDS: B-COMPLEX W/ C & FOLIC ACID(NEPHROVITE TAB) PO SCH (10:00)
[2022-12-24] MEDS: PANTOPRAZOLE 40 MG TAB PO SCH (10:00)
[2022-12-24] MEDS: hydrOXYchloroQUINE SULFATE 200 MG TAB PO SCH ×2 (10:00→22:00)
[2022-12-24] MEDS: DOCUSATE SOD 100 MG CAP PO SCH ×2 (10:00→22:00)
[2022-12-24] MEDS: QUEtiapine FUMARATE 100 MG TAB PO SCH ×2 (10:00→22:00)
[2022-12-24] MEDS: VENLAFAXINE 75 MG PO SCH (10:00)
[2022-12-24] MEDS ORDERED: NYSTATIN (MOUTH-THROAT) 500,000 UNITS/5 ML SUSP MT ONE (13:15)
[2022-12-24 13:17] VITALS: BP 200/119
[2022-12-24] MEDS: METHOCARBAMOL 500 MG TAB PO SCH ×2 (14:51→22:00)
[2022-12-24] MEDS: NYSTATIN (MOUTH-THROAT) 500,000 UNITS/5 ML SUSP MT SCH ×2 (14:51→22:00)
[2022-12-24 16:47] VITALS: BP 155/100
[2022-12-24 22:00] VITALS: BP 189/109
[2022-12-25] MEDS: DexAMETHasone SOD PHOS 4 MG/1ML SDV INJ IV SCH ×4 (00:30→22:00)
[2022-12-25] MEDS: hydrALAZINE HCL 20 MG/ML VL IV PRN (00:36)
[2022-12-25] MEDS: HYDROmorphone HCL 2 MG/ML VL/or syr IV PRN ×3 (01:50→10:26)
[2022-12-25] MEDS: oxyCODONE HCL 5MG TAB PO PRN ×4 (04:22→23:52)
[2022-12-25 05:00] VITALS: BP 182/108
[2022-12-25] MEDS: METHOCARBAMOL 500 MG TAB PO SCH ×3 (06:28→22:00)
[2022-12-25] MEDS: GABAPENTIN 300 MG CAP PO SCH ×3 (06:30→22:00)
[2022-12-25] MEDS: ALPRAZolam 0.25 MG TAB PO SCH ×3 (06:32→21:57)
[2022-12-25] MEDS: NYSTATIN (MOUTH-THROAT) 500,000 UNITS/5 ML SUSP MT SCH ×3 (06:37→22:00)
[2022-12-25] MEDS: QUEtiapine FUMARATE 100 MG TAB PO SCH ×2 (10:00→22:41)
[2022-12-25] MEDS: PANTOPRAZOLE 40 MG TAB PO SCH (10:00)
[2022-12-25] MEDS: FERROUS SULFATE 325mg EC TAB PO SCH ×2 (10:00→22:00)
[2022-12-25] MEDS: MYCOPHENOLATE 500 MG TAB PO SCH ×2 (10:00→22:00)
[2022-12-25] MEDS: B-COMPLEX W/ C & FOLIC ACID(NEPHROVITE TAB) PO SCH (10:00)
[2022-12-25] MEDS: DOCUSATE SOD 100 MG CAP PO SCH ×2 (10:00→22:00)
[2022-12-25] MEDS: hydrOXYchloroQUINE SULFATE 200 MG TAB PO SCH ×2 (10:24→22:00)
[2022-12-25] MEDS ORDERED: HYDROmorphone HCL 2 MG/ML VL/or syr IV ONE (14:30)
[2022-12-25 17:00] VITALS: BP 169/116
[2022-12-25] MEDS: HYDROmorphone HCL 2 MG TAB PO PRN (21:37)
[2022-12-25 22:00] VITALS: BP 171/115
[2022-12-25] MEDS ORDERED: LABETALOL HCL 5 MG/ML 4ML SYRINGE IV PRN (22:00)
[2022-12-26] MEDS: hydrALAZINE HCL 20 MG/ML VL IV PRN (04:22)
[2022-12-26] MEDS: HYDROmorphone HCL 2 MG TAB PO PRN ×2 (04:24→10:53)
[2022-12-26 05:00] VITALS: BP 162/103
[2022-12-26] MEDS: GABAPENTIN 300 MG CAP PO SCH (06:00)
[2022-12-26] MEDS: DexAMETHasone SOD PHOS 4 MG/1ML SDV INJ IV SCH (06:00)
[2022-12-26] MEDS: NYSTATIN (MOUTH-THROAT) 500,000 UNITS/5 ML SUSP MT SCH (06:00)
[2022-12-26] MEDS: METHOCARBAMOL 500 MG TAB PO SCH (06:00)
[2022-12-26] MEDS: ALPRAZolam 0.25 MG TAB PO SCH (06:47)
[2022-12-26] MEDS: oxyCODONE HCL 5MG TAB PO PRN ×2 (06:48→13:38)
[2022-12-26 07:30] VITALS: BP 162/103
[2022-12-26] MEDS: DOCUSATE SOD 100 MG CAP PO SCH (10:00)
[2022-12-26] MEDS: PANTOPRAZOLE 40 MG TAB PO SCH (10:00)
[2022-12-26] MEDS: hydrOXYchloroQUINE SULFATE 200 MG TAB PO SCH (10:00)
[2022-12-26] MEDS: QUEtiapine FUMARATE 100 MG TAB PO SCH (10:00)
[2022-12-26] MEDS: MYCOPHENOLATE 500 MG TAB PO SCH (10:00)
[2022-12-26] MEDS: FERROUS SULFATE 325mg EC TAB PO SCH (10:00)
[2022-12-26] MEDS: B-COMPLEX W/ C & FOLIC ACID(NEPHROVITE TAB) PO SCH (10:00)
[2022-12-26 11:08] VITALS: BP 149/100
[2022-12-26] MEDS ORDERED: HYDR2TAB58 PO (11:25)
[2022-12-26] MEDS ORDERED: OXY5T PO (12:34)
[2022-12-26 13:00] VITALS: BP 146/105
[2022-12-26 13:17] VITALS: BP 149/100
== END 2022-12-26 13:45 | disposition home or self-care (01) | DRG 662 ==
LOC: ER 08:07 → EDBD 08:07 → TELE 13:24 → TELE-CENTR 12-19 10:30
PROVIDERS: ADMIT Nurse Practitioner Family; ATTEND Hospitalist
DX: D57.00 Hb-SS disease with crisis, unspecified (principal); E46 Unspecified protein-calorie malnutrition; M87.851 Other osteonecrosis, right femur; M32.9 Systemic lupus erythematosus, unspecified; E78.5 Hyperlipidemia, unspecified; D50.9 Iron deficiency anemia, unspecified; F11.20 Opioid dependence, uncomplicated; G89.4 Chronic pain syndrome; K80.20 Calculus of gallbladder without cholecystitis without obstruction; M06.9 Rheumatoid arthritis, unspecified; M87.852 Other osteonecrosis, left femur; I10 Essential (primary) hypertension; M79.7 Fibromyalgia; J45.909 Unspecified asthma, uncomplicated; Z80.6 Family history of leukemia; Z82.49 Family history of ischemic heart disease and other diseases of the circulatory system; Z83.2 Family history of diseases of the blood and blood-forming organs and certain disorders involving the immune mechanism; Z83.3 Family history of diabetes mellitus; Z88.1 Allergy status to other antibiotic agents; Z86.73 Personal history of transient ischemic attack (TIA), and cerebral infarction without residual deficits; Z88.6 Allergy status to analgesic agent; Z91.199 Patient's noncompliance with other medical treatment and regimen due to unspecified reason
CPT/HCPCS: 36415; 71045; 74177; 76705; 78226; 80053; 80307; 81001; 81025; 82550; 83615; 83735; 84702; 85025; 85045; 86141; 93005; 96361; 96365; 96368; 96375; 96376; 97163; G0378; J1100; J1956; J3480; J7517

== ENCOUNTER 2023-01-07 07:52 | Inpatient (IN) | payer MEDICAID ==
[~2023-01-07] VITALS: Ht 160 cm; Wt 62.5 kg
[~2023-01-07 07:52] MED LIST changes: +FOLI-119 PO; -FOLI1TAB6 PO; +HYDR2TAB58 PO
[2023-01-07] MEDS ORDERED: SODIUM CHLORIDE 0.9% 1,000 ML IV ONE ×4 (08:15→08:30)
[2023-01-07] MEDS ORDERED: HYDROmorphone HCL 2 MG/ML VL/or syr IV ONE ×3 (08:30→15:45)
[2023-01-07] MEDS ORDERED: PROMETHAZINE HCL 25 MG/ML 1ML IV ONE (08:30)
[2023-01-07] MEDS ORDERED: HYDROmorphone HCL 2 MG/ML VL/or syr IM ONE (09:15)
[2023-01-07] MEDS ORDERED: PROMETHAZINE HCL 25 MG/ML 1ML IM ONE (09:15)
[2023-01-07 11:12] LABS: Basophils # (auto) 0 10 ^3/uL (0-0.2); Eosinophils # (auto) 0 10 ^3/uL (0-0.8); Lymphocytes # (auto) 1.1 10 ^3/uL (0.4-5.4); Monocytes # (auto) 0.4 10 ^3/uL (0-1.3)
[2023-01-07 11:15] LABS: Basophils % (auto) 0.5 % (0.0-2.0); Hematocrit 31.2 % (36.0-46.0); Lymphocytes % (auto) 34.1 % (10.0-50.0); Mean Corpuscular Hemoglobin 23.3 pg (28.0-32.0); Mean Corpuscular Volume 72.6 fL (80.0-100.0); Neutrophils # (auto) 1.8 10 ^3/uL (1.6-8.6); Neutrophils % (auto) 53.4 % (37.0-80.0); Nucleated Red Blood Cells % 0.1 %; Red Cell Distribution Width 19.1 % (11.8-14.3); White Blood Cell 3.3 10^3/uL (4.4-10.8)
[2023-01-07 11:46] LABS: Potassium 3.7 mmol/L (3.5-5.1)
[2023-01-07 11:50] LABS: Albumin 2.6 g/dL (3.4-5.0); BUN/Creatinine Ratio 5.7 (10.0-20.0); Calcium 7.9 mg/dL (8.5-10.1)
[2023-01-07 11:53] LABS: Bilirubin, Total 0.3 mg/dL (0.2-1.0); Total Protein 6.5 g/dL (6.4-8.2)
[2023-01-07] MEDS ORDERED: HYDROcodone-ACET 5/325MG TAB PO PRN (13:00)
[2023-01-07] MEDS ORDERED: ACETAMINOPHEN 325 MG TAB PO PRN (13:00)
[2023-01-07] MEDS ORDERED: MORPHINE SULFATE INJ 2 MG/ml SYRG IV PRN (13:15)
[2023-01-07] MEDS: PANTOPRAZOLE 40 MG/10 ML VIAL INJ IV ONE ×2 (14:25→14:31)
[2023-01-07] MEDS: SODIUM CHLORIDE 0.9% 1,000 ML IV SCH ×2 (14:26→14:30)
[2023-01-07] MEDS ORDERED: KETOROLAC TROMETH 30 MG/ML 1ML VIAL IV ONE (15:03)
[2023-01-07] MEDS: HYDROmorphone HCL 2 MG/ML VL/or syr IV PRN ×2 (18:34→21:43)
[2023-01-07 19:09] LABS: Basophils # (auto) 0.1 10 ^3/uL (0-0.2); Basophils % (auto) 1.3 % (0.0-2.0); Eosinophils # (auto) 0 10 ^3/uL (0-0.8); Eosinophils % (auto) 0.2 % (0.0-7.0); Hemoglobin 10.1 g/dL (12.2-16.2); Lymphocytes # (auto) 1.2 10 ^3/uL (0.4-5.4); Mean Corpuscular Hemoglobin 23.3 pg (28.0-32.0); Mean Corpuscular Hgb Conc. 32.6 g/dL (32.0-36.0); Mean Corpuscular Volume 71.6 fL (80.0-100.0); Monocytes # (auto) 0.5 10 ^3/uL (0-1.3); Monocytes % (auto) 11.3 % (0.0-12.0); Neutrophils # (auto) 2.5 10 ^3/uL (1.6-8.6); Neutrophils % (auto) 59.2 % (37.0-80.0); Nucleated Red Blood Cells % 0.1 %; Red Blood Cells 4.33 10^6/uL (4.0-5.20); Red Cell Distribution Width 18.9 % (11.8-14.3); White Blood Cell 4.3 10^3/uL (4.4-10.8)
[2023-01-07] MEDS: MYCOPHENOLATE 500 MG TAB PO SCH (21:49)
[2023-01-07] MEDS: FERROUS SULFATE 325mg EC TAB PO SCH (21:49)
[2023-01-07] MEDS: GABAPENTIN 300 MG CAP PO SCH (21:50)
[2023-01-07] MEDS: hydrOXYchloroQUINE SULFATE 200 MG TAB PO SCH (21:50)
[2023-01-08] MEDS: HYDROmorphone HCL 2 MG/ML VL/or syr IV PRN ×8 (00:47→23:13)
[2023-01-08 00:53] VITALS: BP 143/99
[2023-01-08 04:39] LABS: Urine Bacteria FEW /hpf (None Seen); Urine Blood Negative /uL (Negative); Urine Mucus FEW (None Seen); Urine Specific Gravity 1.009 (1.001-1.035); Urine WBC 2 /hpf (0 - 5)
[2023-01-08] MEDS: GABAPENTIN 300 MG CAP PO SCH ×3 (06:00→22:00)
[2023-01-08 08:00] VITALS: BP 163/120
[2023-01-08] MEDS: SODIUM CHLORIDE 0.9% 1,000 ML IV SCH ×4 (09:17→22:30)
[2023-01-08] MEDS ORDERED: PANTOPRAZOLE 40 MG/10 ML VIAL INJ IV SCH (10:00)
[2023-01-08] MEDS: FOLIC ACID 1 MG TAB PO SCH (10:00)
[2023-01-08] MEDS: QUEtiapine FUMARATE 100 MG TAB PO SCH (10:00)
[2023-01-08] MEDS: ENOXAPARIN SOD 40 MG/0.4 ML SYRINGE SC SCH (10:00)
[2023-01-08] MEDS: MYCOPHENOLATE 500 MG TAB PO SCH ×2 (10:00→22:00)
[2023-01-08] MEDS: FERROUS SULFATE 325mg EC TAB PO SCH ×2 (10:00→22:00)
[2023-01-08] MEDS: hydrOXYchloroQUINE SULFATE 200 MG TAB PO SCH ×2 (10:00→22:00)
[2023-01-08] MEDS: CYANOCOBALAMIN 500 MCG TAB PO SCH (10:00)
[2023-01-08 12:00] VITALS: BP 163/118
[2023-01-08 17:39] VITALS: BP 158/105
[2023-01-08 22:00] VITALS: BP 170/90
[2023-01-08] MEDS: BACITRACIN TOP OINT 1 UD PKG TOP SCH (22:00)
[2023-01-09] MEDS: HYDROmorphone HCL 2 MG/ML VL/or syr IV PRN ×8 (02:23→23:43)
[2023-01-09 05:00] VITALS: BP 143/100
[2023-01-09] MEDS: GABAPENTIN 300 MG CAP PO SCH ×3 (05:30→22:00)
[2023-01-09] MEDS: hydrOXYchloroQUINE SULFATE 200 MG TAB PO SCH ×2 (08:10→22:00)
[2023-01-09] MEDS: FERROUS SULFATE 325mg EC TAB PO SCH ×2 (08:10→22:00)
[2023-01-09] MEDS: MYCOPHENOLATE 500 MG TAB PO SCH ×2 (08:10→22:00)
[2023-01-09] MEDS: QUEtiapine FUMARATE 100 MG TAB PO SCH (08:10)
[2023-01-09] MEDS: FOLIC ACID 1 MG TAB PO SCH (08:10)
[2023-01-09] MEDS: ENOXAPARIN SOD 40 MG/0.4 ML SYRINGE SC SCH (08:11)
[2023-01-09] MEDS: BACITRACIN TOP OINT 1 UD PKG TOP SCH ×2 (08:11→22:00)
[2023-01-09] MEDS: CYANOCOBALAMIN 500 MCG TAB PO SCH (08:11)
[2023-01-09 09:00] VITALS: BP 156/111
[2023-01-09 13:00] VITALS: BP 156/111
[2023-01-09 17:00] VITALS: BP 155/100
[2023-01-09] MEDS: SODIUM CHLORIDE 0.9% 1,000 ML IV SCH (17:27)
[2023-01-09 22:00] VITALS: BP 162/110
[2023-01-10] MEDS: SODIUM CHLORIDE 0.9% 1,000 ML IV SCH ×3 (01:00→19:48)
[2023-01-10] MEDS: HYDROmorphone HCL 2 MG/ML VL/or syr IV PRN ×6 (03:50→23:03)
[2023-01-10 05:00] VITALS: BP 153/110
[2023-01-10] MEDS: GABAPENTIN 300 MG CAP PO SCH ×3 (06:00→22:00)
[2023-01-10 09:32] VITALS: BP 157/93
[2023-01-10] MEDS: hydrOXYchloroQUINE SULFATE 200 MG TAB PO SCH ×2 (10:00→22:00)
[2023-01-10] MEDS: FOLIC ACID 1 MG TAB PO SCH (10:00)
[2023-01-10] MEDS: FERROUS SULFATE 325mg EC TAB PO SCH ×2 (10:00→22:00)
[2023-01-10] MEDS: ENOXAPARIN SOD 40 MG/0.4 ML SYRINGE SC SCH (10:00)
[2023-01-10] MEDS: MYCOPHENOLATE 500 MG TAB PO SCH ×2 (10:00→22:00)
[2023-01-10] MEDS: BACITRACIN TOP OINT 1 UD PKG TOP SCH ×2 (10:00→22:00)
[2023-01-10] MEDS: QUEtiapine FUMARATE 100 MG TAB PO SCH (10:00)
[2023-01-10] MEDS: CYANOCOBALAMIN 500 MCG TAB PO SCH (10:00)
[2023-01-10] MEDS: hydrALAZINE HCL 20 MG/ML VL IV PRN ×2 (16:44→23:12)
[2023-01-10 16:47] VITALS: BP 156/113
[2023-01-10 22:00] VITALS: BP 158/110
[2023-01-11] MEDS: HYDROmorphone HCL 2 MG/ML VL/or syr IV PRN ×7 (02:16→20:32)
[2023-01-11 05:00] VITALS: BP 142/106
[2023-01-11] MEDS: GABAPENTIN 300 MG CAP PO SCH ×3 (06:00→22:57)
[2023-01-11] MEDS: SODIUM CHLORIDE 0.9% 1,000 ML IV SCH ×3 (07:00→23:03)
[2023-01-11] MEDS: hydrALAZINE HCL 20 MG/ML VL IV PRN ×2 (08:30→15:41)
[2023-01-11 09:00] VITALS: BP 141/108
[2023-01-11] MEDS: MYCOPHENOLATE 500 MG TAB PO SCH ×2 (10:00→22:57)
[2023-01-11] MEDS: CYANOCOBALAMIN 500 MCG TAB PO SCH (10:00)
[2023-01-11] MEDS: QUEtiapine FUMARATE 100 MG TAB PO SCH (10:00)
[2023-01-11] MEDS: ENOXAPARIN SOD 40 MG/0.4 ML SYRINGE SC SCH (10:00)
[2023-01-11] MEDS: hydrOXYchloroQUINE SULFATE 200 MG TAB PO SCH ×2 (10:00→22:57)
[2023-01-11] MEDS: FERROUS SULFATE 325mg EC TAB PO SCH ×2 (10:00→22:57)
[2023-01-11] MEDS: FOLIC ACID 1 MG TAB PO SCH (10:00)
[2023-01-11] MEDS: BACITRACIN TOP OINT 1 UD PKG TOP SCH ×2 (10:00→22:58)
[2023-01-11] MEDS: LORazepam 2MG/ML-1ML VIAL IV PRN ×2 (12:34→23:03)
[2023-01-11 13:13] LABS: Basophils # (auto) 0 10 ^3/uL (0-0.2); Basophils % (auto) 0.3 % (0.0-2.0); Eosinophils # (auto) 0 10 ^3/uL (0-0.8); Monocytes # (auto) 0.6 10 ^3/uL (0-1.3); Neutrophils # (auto) 2.7 10 ^3/uL (1.6-8.6); White Blood Cell 4.2 10^3/uL (4.4-10.8)
[2023-01-11 13:16] LABS: Hematocrit 30.6 % (36.0-46.0); Hemoglobin 10.1 g/dL (12.2-16.2); Lymphocytes # (auto) 0.8 10 ^3/uL (0.4-5.4); Lymphocytes % (auto) 20.3 % (10.0-50.0); Mean Corpuscular Hemoglobin 23.5 pg (28.0-32.0); Mean Corpuscular Hgb Conc. 32.9 g/dL (32.0-36.0); Mean Corpuscular Volume 71.5 fL (80.0-100.0); Monocytes % (auto) 14.4 % (0.0-12.0); Nucleated Red Blood Cells % 0.2 %; Red Blood Cells 4.28 10^6/uL (4.0-5.20); Red Cell Distribution Width 18.8 % (11.8-14.3)
[2023-01-11 14:02] LABS: Albumin 2.7 g/dL (3.4-5.0); Potassium 3.4 mmol/L (3.5-5.1)
[2023-01-11 14:06] LABS: BUN/Creatinine Ratio 11.9 (10.0-20.0); Bilirubin, Total 0.3 mg/dL (0.2-1.0); Total Protein 6.4 g/dL (6.4-8.2)
[2023-01-11] MEDS ORDERED: POTASSIUM CHL 20 Meq TABLET PO ONE (14:30)
[2023-01-11] MEDS ORDERED: POTASSIUM EFFERVESENT TAB 25 MEQ PO ONE (14:45)
[2023-01-11 16:55] VITALS: BP 155/97
[2023-01-11 22:00] VITALS: BP 148/101
[2023-01-11] MEDS: CIPROFLOXACIN HCL 500 MG TAB PO SCH (22:57)
[2023-01-11] MEDS: metroNIDAZOLE 500MG/100ML 100 ML IV SCH (23:02)
[2023-01-12] MEDS: HYDROmorphone HCL 2 MG/ML VL/or syr IV PRN ×3 (01:08→08:46)
[2023-01-12 05:00] VITALS: BP 162/111
[2023-01-12] MEDS: GABAPENTIN 300 MG CAP PO SCH (05:31)
[2023-01-12] MEDS: LORazepam 2MG/ML-1ML VIAL IV PRN ×2 (05:43→05:44)
[2023-01-12] MEDS: metroNIDAZOLE 500MG/100ML 100 ML IV SCH (05:43)
[2023-01-12 08:00] VITALS: BP 160/114
[2023-01-12 08:46] VITALS: BP 160/114
[2023-01-12] MEDS: FOLIC ACID 1 MG TAB PO SCH (08:50)
[2023-01-12] MEDS: FERROUS SULFATE 325mg EC TAB PO SCH (08:50)
[2023-01-12] MEDS: CIPROFLOXACIN HCL 500 MG TAB PO SCH (08:51)
[2023-01-12] MEDS: hydrOXYchloroQUINE SULFATE 200 MG TAB PO SCH (08:51)
[2023-01-12] MEDS: MYCOPHENOLATE 500 MG TAB PO SCH (08:51)
[2023-01-12] MEDS: CYANOCOBALAMIN 500 MCG TAB PO SCH (08:52)
[2023-01-12] MEDS: ENOXAPARIN SOD 40 MG/0.4 ML SYRINGE SC SCH (08:52)
[2023-01-12] MEDS: QUEtiapine FUMARATE 100 MG TAB PO SCH (08:52)
== END 2023-01-12 09:50 | disposition left against medical advice (07) | DRG 662 ==
LOC: EDBD 07:52 → ER 07:52 → OVERFLOW 13:04 → CENTRAL 23:45
PROVIDERS: ADMIT Nurse Practitioner Family; ATTEND Internal Medicine
PROC: 05HA33Z Insertion of Infusion Device into Left Brachial Vein, Percutaneous Approach (ICD-10-PCS; principal; 2023-01-07)
PROC: B54NZZA Ultrasonography of Left Upper Extremity Veins, Guidance (ICD-10-PCS; 2023-01-07)
DX: D57.00 Hb-SS disease with crisis, unspecified (principal); E44.0 Moderate protein-calorie malnutrition; M87.9 Osteonecrosis, unspecified; M32.9 Systemic lupus erythematosus, unspecified; F11.20 Opioid dependence, uncomplicated; J45.909 Unspecified asthma, uncomplicated; M79.7 Fibromyalgia; Z53.29 Procedure and treatment not carried out because of patient's decision for other reasons; L08.9 Local infection of the skin and subcutaneous tissue, unspecified; N76.4 Abscess of vulva; M06.9 Rheumatoid arthritis, unspecified; M19.90 Unspecified osteoarthritis, unspecified site; F41.9 Anxiety disorder, unspecified; Z80.6 Family history of leukemia; Z82.49 Family history of ischemic heart disease and other diseases of the circulatory system; Z83.2 Family history of diseases of the blood and blood-forming organs and certain disorders involving the immune mechanism; Z83.3 Family history of diabetes mellitus; Z88.1 Allergy status to other antibiotic agents; Z88.6 Allergy status to analgesic agent; Z91.148 Patient's other noncompliance with medication regimen for other reason; Z68.27 Body mass index [BMI] 27.0-27.9, adult
CPT/HCPCS: 36415; 80053; 81001; 84484; 85025; 85045; 86850; 86900; 86901; 87077; 87081; 87186; 87205; 93005; 96361; 96372; 96374; C9113; G0378; J3490; J7517

== ENCOUNTER 2023-01-23 10:14 | Inpatient (IN) | payer MEDICAID ==
[~2023-01-23] VITALS: Ht 165.1 cm; Wt 66.1 kg
[2023-01-23] MEDS ORDERED: ONDANSETRON HCL 4 MG/2 ML VIAL IV ONE (10:45)
[2023-01-23] MEDS ORDERED: HYDROmorphone HCL 2 MG/ML VL/or syr IV ONE ×4 (10:45→21:00)
[2023-01-23] MEDS ORDERED: SODIUM CHLORIDE 0.9% 1,000 ML IV ONE (10:45)
[2023-01-23 11:57] LABS: Urine Bacteria NONE SEEN /hpf (None Seen); Urine Blood Negative /uL (Negative); Urine Specific Gravity 1.012 (1.001-1.035); Urine WBC 1 /hpf (0 - 5)
[2023-01-23] MEDS ORDERED: LORazepam 2MG/ML-1ML VIAL IV ONE (13:15)
[2023-01-23] MEDS ORDERED: ONDANSETRON HCL 4 MG/2 ML VIAL IV PRN (13:45)
[2023-01-23] MEDS: SODIUM CHLORIDE 0.9% 1,000 ML IV SCH (13:45)
[2023-01-23] MEDS ORDERED: DOCUSATE SOD 100 MG CAP PO PRN (13:45)
[2023-01-23] MEDS ORDERED: diphenhdrAMINE HCL 50 MG/1 ML VL IV ONE (13:45)
[2023-01-23] MEDS ORDERED: METHOCARBAMOL 500 MG TAB PO PRN (13:45)
[2023-01-23] MEDS ORDERED: LORazepam 2MG/ML-1ML VIAL IM ONE (17:30)
[2023-01-23] MEDS: APIXABAN 5 MG TAB PO SCH ×2 (17:57→22:00)
[2023-01-23] MEDS: diphenhdrAMINE HCL 50 MG/1 ML VL IV PRN (19:51)
[2023-01-23 21:47] LABS: Calcium 8.2 mg/dL (8.5-10.1); Potassium 3.8 mmol/L (3.5-5.1)
[2023-01-23 21:48] LABS: Basophils # (auto) 0 10 ^3/uL (0-0.2); Red Cell Distribution Width 20.2 % (11.8-14.3); White Blood Cell 4.4 10^3/uL (4.4-10.8)
[2023-01-23 21:50] LABS: Basophils % (auto) 0.5 % (0.0-2.0); Eosinophils # (auto) 0 10 ^3/uL (0-0.8); Eosinophils % (auto) 0.3 % (0.0-7.0); Hematocrit 30.9 % (36.0-46.0); Hemoglobin 9.8 g/dL (12.2-16.2); Lymphocytes # (auto) 1.2 10 ^3/uL (0.4-5.4); Lymphocytes % (auto) 26.8 % (10.0-50.0); Mean Corpuscular Hemoglobin 24.6 pg (28.0-32.0); Mean Corpuscular Hgb Conc. 31.8 g/dL (32.0-36.0); Mean Corpuscular Volume 77.3 fL (80.0-100.0); Monocytes # (auto) 0.7 10 ^3/uL (0-1.3); Neutrophils # (auto) 2.5 10 ^3/uL (1.6-8.6); Neutrophils % (auto) 56.4 % (37.0-80.0); Nucleated Red Blood Cells % 0.6 %
[2023-01-23 21:51] LABS: BUN/Creatinine Ratio 11.4 (10.0-20.0); Bilirubin, Total 0.2 mg/dL (0.2-1.0); Total Protein 6.8 g/dL (6.4-8.2)
[2023-01-23] MEDS: MYCOPHENOLATE 500 MG TAB PO SCH (22:00)
[2023-01-23] MEDS: GABAPENTIN 300 MG CAP PO SCH (22:00)
[2023-01-23] MEDS: hydrOXYchloroQUINE SULFATE 200 MG TAB PO SCH (22:00)
[2023-01-23] MEDS: FERROUS SULFATE 325mg EC TAB PO SCH (22:00)
[2023-01-24] MEDS ORDERED: HYDROmorphone HCL 2 MG/ML VL/or syr IV ONE (00:15)
[2023-01-24] MEDS: SODIUM CHLORIDE 0.9% 1,000 ML IV SCH ×4 (01:48→23:05)
[2023-01-24] MEDS: diphenhdrAMINE HCL 50 MG/1 ML VL IV PRN (03:37)
[2023-01-24] MEDS: HYDROmorphone HCL 2 MG/ML VL/or syr IV PRN ×6 (03:38→21:32)
[2023-01-24] MEDS: GABAPENTIN 300 MG CAP PO SCH ×3 (06:00→21:37)
[2023-01-24] MEDS: MYCOPHENOLATE 500 MG TAB PO SCH ×2 (10:00→21:31)
[2023-01-24] MEDS: hydrOXYchloroQUINE SULFATE 200 MG TAB PO SCH ×2 (10:26→21:36)
[2023-01-24] MEDS: FOLIC ACID 1 MG TAB PO SCH (10:27)
[2023-01-24] MEDS: APIXABAN 5 MG TAB PO SCH ×2 (10:27→21:31)
[2023-01-24] MEDS: PANTOPRAZOLE 40 MG TAB PO SCH (10:27)
[2023-01-24] MEDS: FERROUS SULFATE 325mg EC TAB PO SCH ×2 (10:27→21:37)
[2023-01-24] MEDS: predniSONE 20 MG TAB PO SCH (10:27)
[2023-01-24] MEDS: CYANOCOBALAMIN 500 MCG TAB PO SCH (10:27)
[2023-01-24] MEDS: QUEtiapine FUMARATE 100 MG TAB PO SCH (10:27)
[2023-01-24 10:34] VITALS: BP 143/89
[2023-01-24 14:23] VITALS: BP 142/99
[2023-01-24 15:27] LABS: Basophils # (auto) 0 10 ^3/uL (0-0.2); Eosinophils # (auto) 0 10 ^3/uL (0-0.8); Hemoglobin 10.2 g/dL (12.2-16.2); Lymphocytes # (auto) 0.5 10 ^3/uL (0.4-5.4); Mean Corpuscular Hemoglobin 23.5 pg (28.0-32.0); Monocytes # (auto) 0.3 10 ^3/uL (0-1.3); Neutrophils # (auto) 4.5 10 ^3/uL (1.6-8.6); Nucleated Red Blood Cells % 0.1 %; White Blood Cell 5.2 10^3/uL (4.4-10.8)
[2023-01-24 15:28] LABS: Basophils % (auto) 0.1 % (0.0-2.0); Eosinophils % (auto) 0.1 % (0.0-7.0); Hematocrit 32.3 % (36.0-46.0); Lymphocytes % (auto) 8.8 % (10.0-50.0); Mean Corpuscular Hgb Conc. 31.6 g/dL (32.0-36.0); Mean Corpuscular Volume 74.4 fL (80.0-100.0); Monocytes % (auto) 5.3 % (0.0-12.0); Neutrophils % (auto) 85.7 % (37.0-80.0); Red Blood Cells 4.35 10^6/uL (4.0-5.20)
[2023-01-24 15:29] LABS: Red Cell Distribution Width 20.1 % (11.8-14.3)
[2023-01-24 15:52] LABS: Calcium 8.1 mg/dL (8.5-10.1); Potassium 4.6 mmol/L (3.5-5.1)
[2023-01-24 15:55] LABS: BUN/Creatinine Ratio 13.3 (10.0-20.0); Bilirubin, Total 0.2 mg/dL (0.2-1.0); Total Protein 7.3 g/dL (6.4-8.2)
[2023-01-24] MEDS ORDERED: diphenhdrAMINE HCL 25 MG CAP PO PRN (16:00)
[2023-01-24 17:47] VITALS: BP 133/94
[2023-01-24 22:13] VITALS: BP 115/77
[2023-01-24] MEDS: ALPRAZolam 0.5 MG TAB PO PRN (22:30)
[2023-01-25] MEDS: HYDROmorphone HCL 2 MG/ML VL/or syr IV PRN ×5 (01:09→23:24)
[2023-01-25] MEDS: SODIUM CHLORIDE 0.9% 1,000 ML IV SCH ×2 (01:13→15:45)
[2023-01-25] MEDS: GABAPENTIN 300 MG CAP PO SCH ×3 (05:13→22:00)
[2023-01-25 05:31] VITALS: BP 137/93
[2023-01-25 09:00] VITALS: BP 122/82
[2023-01-25] MEDS ORDERED: HYDROmorphone HCL 2 MG/ML VL/or syr IV PRN (10:00)
[2023-01-25] MEDS: hydrOXYchloroQUINE SULFATE 200 MG TAB PO SCH ×2 (10:41→21:54)
[2023-01-25] MEDS: APIXABAN 5 MG TAB PO SCH ×2 (10:41→21:54)
[2023-01-25] MEDS: predniSONE 20 MG TAB PO SCH (10:41)
[2023-01-25] MEDS: CYANOCOBALAMIN 500 MCG TAB PO SCH (10:41)
[2023-01-25] MEDS: QUEtiapine FUMARATE 100 MG TAB PO SCH (10:41)
[2023-01-25] MEDS: MYCOPHENOLATE 500 MG TAB PO SCH ×2 (10:41→22:00)
[2023-01-25] MEDS: PANTOPRAZOLE 40 MG TAB PO SCH (10:41)
[2023-01-25] MEDS: FOLIC ACID 1 MG TAB PO SCH (10:41)
[2023-01-25] MEDS: FERROUS SULFATE 325mg EC TAB PO SCH ×2 (10:41→22:00)
[2023-01-25 13:00] VITALS: BP 133/95
[2023-01-25 17:00] VITALS: BP 141/96
[2023-01-25 22:00] VITALS: BP 136/89
[2023-01-26 05:00] VITALS: BP 131/91
[2023-01-26] MEDS: HYDROmorphone HCL 2 MG/ML VL/or syr IV PRN ×3 (05:26→22:18)
[2023-01-26] MEDS: SODIUM CHLORIDE 0.9% 1,000 ML IV SCH ×2 (05:29→17:00)
[2023-01-26] MEDS: GABAPENTIN 300 MG CAP PO SCH ×3 (05:56→22:00)
[2023-01-26 09:00] VITALS: BP 159/104
[2023-01-26] MEDS: MYCOPHENOLATE 500 MG TAB PO SCH ×2 (10:00→22:00)
[2023-01-26] MEDS: FERROUS SULFATE 325mg EC TAB PO SCH ×2 (10:00→22:00)
[2023-01-26] MEDS: hydrOXYchloroQUINE SULFATE 200 MG TAB PO SCH ×2 (10:00→22:00)
[2023-01-26] MEDS: PANTOPRAZOLE 40 MG TAB PO SCH (10:00)
[2023-01-26] MEDS: CYANOCOBALAMIN 500 MCG TAB PO SCH (10:00)
[2023-01-26] MEDS: ALPRAZolam 0.5 MG TAB PO PRN ×2 (11:36→23:40)
[2023-01-26] MEDS: FOLIC ACID 1 MG TAB PO SCH (11:46)
[2023-01-26] MEDS: QUEtiapine FUMARATE 100 MG TAB PO SCH (11:46)
[2023-01-26] MEDS: predniSONE 20 MG TAB PO SCH (11:46)
[2023-01-26] MEDS: APIXABAN 5 MG TAB PO SCH ×2 (11:46→22:29)
[2023-01-26 12:43] VITALS: BP 151/102
[2023-01-26 17:00] VITALS: BP 145/98
[2023-01-26] MEDS ORDERED: ACETAMINOPHEN 325 MG TAB PO PRN (19:15)
[2023-01-26 22:00] VITALS: BP 98/62
[2023-01-27 05:00] VITALS: BP 184/87
[2023-01-27] MEDS: SODIUM CHLORIDE 0.9% 1,000 ML IV SCH (05:27)
[2023-01-27] MEDS: HYDROmorphone HCL 2 MG/ML VL/or syr IV PRN (05:52)
[2023-01-27] MEDS: GABAPENTIN 300 MG CAP PO SCH (06:00)
[2023-01-27 06:22] VITALS: BP 148/92
== END 2023-01-27 08:55 | disposition left against medical advice (07) | DRG 662 ==
LOC: ER 10:14 → TELE 14:18 → TELE-WESTW 01-24 09:28
PROVIDERS: ADMIT Nurse Practitioner Family; ATTEND Internal Medicine
DX: D57.00 Hb-SS disease with crisis, unspecified (principal); M32.9 Systemic lupus erythematosus, unspecified; E11.9 Type 2 diabetes mellitus without complications; F41.9 Anxiety disorder, unspecified; I25.10 Atherosclerotic heart disease of native coronary artery without angina pectoris; M06.9 Rheumatoid arthritis, unspecified; R00.0 Tachycardia, unspecified; M79.7 Fibromyalgia; J45.909 Unspecified asthma, uncomplicated; Z53.29 Procedure and treatment not carried out because of patient's decision for other reasons; M19.90 Unspecified osteoarthritis, unspecified site; Z88.8 Allergy status to other drugs, medicaments and biological substances; Z86.718 Personal history of other venous thrombosis and embolism; Z88.6 Allergy status to analgesic agent; Z79.624 Long term (current) use of inhibitors of nucleotide synthesis; Z79.899 Other long term (current) drug therapy; Z80.9 Family history of malignant neoplasm, unspecified; Z83.2 Family history of diseases of the blood and blood-forming organs and certain disorders involving the immune mechanism; Z85.6 Personal history of leukemia; Z88.1 Allergy status to other antibiotic agents; Z88.0 Allergy status to penicillin
CPT/HCPCS: 36415; 71045; 80053; 81001; 81025; 84484; 84702; 85025; 85045; 85379; 96361; 96372; 96374; 96375; 96376; G0378; J2405; J7517

== ENCOUNTER 2023-01-27 08:55 | Emergency (ER) | payer MEDICAID ==
[~2023-01-27] VITALS: Ht 165.1 cm; Wt 64.0 kg
[2023-01-27] MEDS ORDERED: SODIUM CHLORIDE 0.9% 1,000 ML IV ONE (10:30)
[2023-01-27 10:40] LABS: Basophils # (auto) 0 10 ^3/uL (0-0.2); Eosinophils # (auto) 0 10 ^3/uL (0-0.8); Hemoglobin 10.3 g/dL (12.2-16.2); Mean Corpuscular Hemoglobin 22.6 pg (28.0-32.0); Mean Corpuscular Hgb Conc. 31.9 g/dL (32.0-36.0); Nucleated Red Blood Cells % 0.1 %
[2023-01-27 10:43] LABS: Basophils % (auto) 0.5 % (0.0-2.0); Eosinophils % (auto) 0.1 % (0.0-7.0); Hematocrit 32.2 % (36.0-46.0); Lymphocytes # (auto) 1.3 10 ^3/uL (0.4-5.4); Lymphocytes % (auto) 27.8 % (10.0-50.0); Mean Corpuscular Volume 70.7 fL (80.0-100.0); Monocytes # (auto) 0.7 10 ^3/uL (0-1.3); Monocytes % (auto) 15.4 % (0.0-12.0); Neutrophils # (auto) 2.6 10 ^3/uL (1.6-8.6); Neutrophils % (auto) 56.2 % (37.0-80.0); Red Blood Cells 4.55 10^6/uL (4.0-5.20); White Blood Cell 4.6 10^3/uL (4.4-10.8)
[2023-01-27 10:50] LABS: Red Cell Distribution Width 20.2 % (11.8-14.3)
[2023-01-27 10:51] LABS: Potassium 3.7 mmol/L (3.5-5.1)
[2023-01-27 10:58] LABS: Albumin 2.9 g/dL (3.4-5.0); BUN/Creatinine Ratio 21.7 (10.0-20.0); Bilirubin, Total 0.2 mg/dL (0.2-1.0); Calcium 8.3 mg/dL (8.5-10.1); Total Protein 7.9 g/dL (6.4-8.2)
[2023-01-27 12:35] VITALS: BP 147/85
== END 2023-01-27 12:52 | disposition left against medical advice (07) ==
LOC: ER 08:55
DX: D57.1 Sickle-cell disease without crisis (principal); F41.9 Anxiety disorder, unspecified; J45.909 Unspecified asthma, uncomplicated; M19.90 Unspecified osteoarthritis, unspecified site; Z98.890 Other specified postprocedural states
CPT/HCPCS: 36415; 80053; 85025; 85045

== ENCOUNTER 2023-02-01 05:19 | Emergency (ER) | payer MEDICAID ==
[~2023-02-01] VITALS: Ht 165.1 cm; Wt 70.0 kg
[2023-02-01] MEDS ORDERED: HYDROmorphone HCL 2 MG/ML VL/or syr IM ONE (05:30)
[2023-02-01 05:40] VITALS: BP 178/92
== END 2023-02-01 09:18 | disposition left against medical advice (07) ==
LOC: ER 05:19 → EDBD 05:19 → ER 09:18
DX: D57.00 Hb-SS disease with crisis, unspecified (principal); Z53.21 Procedure and treatment not carried out due to patient leaving prior to being seen by health care provider
CPT/HCPCS: 99281; J1170

== ENCOUNTER 2023-02-04 20:29 | Inpatient (IN) | payer MEDICAID ==
[~2023-02-04] VITALS: Ht 162.6 cm; Wt 132.4 kg
[2023-02-04] MEDS ORDERED: HYDROmorphone HCL 2 MG/ML VL/or syr IM ONE (21:00)
[2023-02-04] MEDS ORDERED: ONDANSETRON ODT 4 MG TAB PO ONE (21:00)
[2023-02-04] MEDS ORDERED: SODIUM CHLORIDE 0.9% 1,000 ML IV ONE (21:00)
[2023-02-04] MEDS ORDERED: diphenhdrAMINE HCL 50 MG/1 ML VL IM ONE (21:00)
[2023-02-05] MEDS ORDERED: MIDAZOLAM HCL 2MG/2ML 2ml VIAL (1mg/ml) IM ONE (01:15)
[2023-02-05] MEDS ORDERED: HYDROmorphone HCL 2 MG/ML VL/or syr IM ONE (01:15)
[2023-02-05] MEDS ORDERED: HYDROmorphone HCL 2 MG/ML VL/or syr IV ONE ×2 (01:15→03:00)
[2023-02-05] MEDS ORDERED: MIDAZOLAM HCL 2MG/2ML 2ml VIAL (1mg/ml) IV ONE (01:15)
[2023-02-05 01:39] LABS: Urine Bacteria NONE SEEN /hpf (None Seen); Urine Blood Negative /uL (Negative); Urine Specific Gravity 1.019 (1.001-1.035); Urine WBC 1 /hpf (0 - 5)
[2023-02-05] MEDS ORDERED: SODIUM CHLORIDE 0.9% 1,000 ML IV ONE (02:30)
[2023-02-05 02:53] LABS: Basophils # (auto) 0 10 ^3/uL (0-0.2); Eosinophils # (auto) 0 10 ^3/uL (0-0.8); Eosinophils % (auto) 0.2 % (0.0-7.0); Lymphocytes # (auto) 0.9 10 ^3/uL (0.4-5.4); Monocytes # (auto) 0.5 10 ^3/uL (0-1.3); Nucleated Red Blood Cells % 0.1 %
[2023-02-05] MEDS ORDERED: diphenhdrAMINE HCL 50 MG/1 ML VL IV ONE (03:00)
[2023-02-05] MEDS ORDERED: ONDANSETRON HCL 4 MG/2 ML VIAL IV ONE (03:00)
[2023-02-05 03:02] LABS: Neutrophils # (auto) 2.5 10 ^3/uL (1.6-8.6)
[2023-02-05 03:04] LABS: Basophils % (auto) 0.2 % (0.0-2.0); Hematocrit 32.1 % (36.0-46.0); Hemoglobin 10.6 g/dL (12.2-16.2); Lymphocytes % (auto) 22.6 % (10.0-50.0); Mean Corpuscular Hemoglobin 23.9 pg (28.0-32.0); Mean Corpuscular Hgb Conc. 32.9 g/dL (32.0-36.0); Mean Corpuscular Volume 72.6 fL (80.0-100.0); Monocytes % (auto) 13.2 % (0.0-12.0); Neutrophils % (auto) 63.8 % (37.0-80.0); Red Blood Cells 4.42 10^6/uL (4.0-5.20); Red Cell Distribution Width 21.7 % (11.8-14.3); White Blood Cell 3.9 10^3/uL (4.4-10.8)
[2023-02-05 03:18] LABS: BUN/Creatinine Ratio 19.7 (10.0-20.0); Calcium 8.2 mg/dL (8.5-10.1); Potassium 3.3 mmol/L (3.5-5.1)
[2023-02-05 03:21] LABS: Bilirubin, Total 0.2 mg/dL (0.2-1.0); Total Protein 7.2 g/dL (6.4-8.2)
[2023-02-05] MEDS ORDERED: TEMAZEPAM 15 MG CAP PO PRN (03:45)
[2023-02-05] MEDS: SODIUM CHLORIDE 0.9% 1,000 ML IV SCH ×2 (04:28→18:47)
[2023-02-05] MEDS: HYDROmorphone HCL 2 MG/ML VL/or syr IV PRN ×4 (05:58→23:22)
[2023-02-05] MEDS: GABAPENTIN 300 MG CAP PO SCH ×4 (06:00→21:46)
[2023-02-05] MEDS: MYCOPHENOLATE 500 MG TAB PO SCH ×2 (10:00→21:37)
[2023-02-05] MEDS: ONDANSETRON HCL 4 MG/2 ML VIAL IV PRN (11:55)
[2023-02-05] MEDS: CYANOCOBALAMIN 500 MCG TAB PO SCH (11:56)
[2023-02-05] MEDS: ENOXAPARIN SOD 40 MG/0.4 ML SYRINGE SC SCH (11:56)
[2023-02-05] MEDS: hydrOXYchloroQUINE SULFATE 200 MG TAB PO SCH ×2 (11:56→21:38)
[2023-02-05] MEDS: PANTOPRAZOLE 40 MG TAB PO SCH (11:57)
[2023-02-05] MEDS: FOLIC ACID 1 MG TAB PO SCH (11:57)
[2023-02-05 14:10] VITALS: BP 154/107
[2023-02-05] MEDS ORDERED: diphenhdrAMINE HCL 50 MG/1 ML VL IV PRN ×2 (14:30→16:30)
[2023-02-05] MEDS ORDERED: MYCO1SUS PO (14:51)
[2023-02-05] MEDS ORDERED: QUET300T24 PO (14:51)
[2023-02-05] MEDS ORDERED: HYDR300T PO (14:51)
[2023-02-05] MEDS ORDERED: HYDROmorphone HCL 2 MG/ML VL/or syr IV PRN ×2 (14:59→17:00)
[2023-02-05] MEDS ORDERED: DULO1CAP6 PO (16:21)
[2023-02-05 16:30] VITALS: BP 142/106
[2023-02-05] MEDS ORDERED: oxyCODONE HCL 5MG TAB PO PRN (16:30)
[2023-02-05] MEDS ORDERED: oxyCODONE ER 10 MG TAB PO SCH (18:00)
[2023-02-05] MEDS: diphenhdrAMINE HCL 50 MG/1 ML VL IV PRN (18:48)
[2023-02-05] MEDS ORDERED: CYANOCOBALAMIN (B-12) 1000 MCG/1 ML VIAL IM SCH (19:15)
[2023-02-05] MEDS: CYANOCOBALAMIN (B-12) 1000 MCG/1 ML VIAL IM SCH (19:45)
[2023-02-05 20:00] VITALS: BP 136/92
[2023-02-05 21:59] VITALS: BP 136/92
[2023-02-06] MEDS: HYDROmorphone HCL 2 MG/ML VL/or syr IV PRN ×9 (02:33→23:40)
[2023-02-06] MEDS: SODIUM CHLORIDE 0.9% 1,000 ML IV SCH ×2 (04:45→17:09)
[2023-02-06 05:00] VITALS: BP 143/101
[2023-02-06] MEDS: GABAPENTIN 300 MG CAP PO SCH ×3 (06:00→22:00)
[2023-02-06 08:00] VITALS: BP 179/117
[2023-02-06 08:16] LABS: Basophils # (auto) 0 10 ^3/uL (0-0.2); Eosinophils # (auto) 0 10 ^3/uL (0-0.8); Hemoglobin 9.3 g/dL (12.2-16.2); Lymphocytes # (auto) 0.9 10 ^3/uL (0.4-5.4); Mean Corpuscular Hgb Conc. 31.7 g/dL (32.0-36.0); Monocytes # (auto) 0.5 10 ^3/uL (0-1.3); White Blood Cell 3.4 10^3/uL (4.4-10.8)
[2023-02-06 08:18] LABS: Basophils % (auto) 0.5 % (0.0-2.0); Hematocrit 29.4 % (36.0-46.0); Lymphocytes % (auto) 26.4 % (10.0-50.0); Mean Corpuscular Hemoglobin 23.2 pg (28.0-32.0); Mean Corpuscular Volume 73.2 fL (80.0-100.0); Monocytes % (auto) 15.6 % (0.0-12.0); Neutrophils # (auto) 1.9 10 ^3/uL (1.6-8.6); Neutrophils % (auto) 56.5 % (37.0-80.0); Nucleated Red Blood Cells % 0.4 %; Red Blood Cells 4.02 10^6/uL (4.0-5.20); Red Cell Distribution Width 21.7 % (11.8-14.3)
[2023-02-06 09:00] VITALS: BP 179/117
[2023-02-06 09:14] LABS: Potassium 3.8 mmol/L (3.5-5.1)
[2023-02-06] MEDS: PANTOPRAZOLE 40 MG TAB PO SCH (09:14)
[2023-02-06] MEDS: FOLIC ACID 1 MG TAB PO SCH (09:14)
[2023-02-06] MEDS: hydrOXYchloroQUINE SULFATE 200 MG TAB PO SCH ×2 (09:14→22:00)
[2023-02-06] MEDS: ENOXAPARIN SOD 40 MG/0.4 ML SYRINGE SC SCH (09:15)
[2023-02-06] MEDS: CYANOCOBALAMIN (B-12) 1000 MCG/1 ML VIAL IM SCH (09:15)
[2023-02-06] MEDS: MYCOPHENOLATE 500 MG TAB PO SCH ×2 (09:21→22:00)
[2023-02-06 09:22] LABS: BUN/Creatinine Ratio 13.2 (10.0-20.0)
[2023-02-06] MEDS ORDERED: POTASSIUM EFFERVESENT TAB 25 MEQ PO SCH (10:00)
[2023-02-06] MEDS: diphenhdrAMINE HCL 50 MG/1 ML VL IV PRN ×2 (12:24→18:28)
[2023-02-06 13:00] VITALS: BP 160/104
[2023-02-06] MEDS: hydrALAZINE HCL 20 MG/ML VL IV PRN ×2 (16:45→23:40)
[2023-02-06 17:00] VITALS: BP 142/96
[2023-02-06 22:00] VITALS: BP 149/102
[2023-02-06] MEDS: MUPIROCIN 2% OINT 15gm or 22gm FOR MRSA NARES EACHNOSTRI SCH (23:41)
[2023-02-07] MEDS: diphenhdrAMINE HCL 50 MG/1 ML VL IV PRN ×4 (00:28→21:10)
[2023-02-07] MEDS: oxyCODONE HCL 5MG TAB PO PRN (01:16)
[2023-02-07] MEDS: ONDANSETRON HCL 4 MG/2 ML VIAL IV PRN ×2 (01:21→08:54)
[2023-02-07] MEDS: HYDROmorphone HCL 2 MG/ML VL/or syr IV PRN ×8 (02:30→23:19)
[2023-02-07 05:00] VITALS: BP 139/96
[2023-02-07] MEDS: GABAPENTIN 300 MG CAP PO SCH ×3 (05:26→21:51)
[2023-02-07] MEDS: SODIUM CHLORIDE 0.9% 1,000 ML IV SCH ×2 (05:26→11:27)
[2023-02-07 08:30] VITALS: BP 139/96
[2023-02-07 09:00] VITALS: BP 139/96
[2023-02-07] MEDS: MUPIROCIN 2% OINT 15gm or 22gm FOR MRSA NARES EACHNOSTRI SCH ×2 (10:01→21:51)
[2023-02-07] MEDS: hydrOXYchloroQUINE SULFATE 200 MG TAB PO SCH ×2 (10:01→21:51)
[2023-02-07] MEDS: ENOXAPARIN SOD 40 MG/0.4 ML SYRINGE SC SCH (10:01)
[2023-02-07] MEDS: FOLIC ACID 1 MG TAB PO SCH (10:02)
[2023-02-07] MEDS: PANTOPRAZOLE 40 MG TAB PO SCH (10:02)
[2023-02-07] MEDS: MYCOPHENOLATE 500 MG TAB PO SCH ×2 (10:02→21:52)
[2023-02-07] MEDS: CYANOCOBALAMIN (B-12) 1000 MCG/1 ML VIAL IM SCH (10:02)
[2023-02-07 13:00] VITALS: BP 137/100
[2023-02-07 16:55] VITALS: BP 155/101
[2023-02-07 22:00] VITALS: BP 149/99
[2023-02-08] MEDS: HYDROmorphone HCL 2 MG/ML VL/or syr IV PRN ×8 (02:25→23:16)
[2023-02-08] MEDS: diphenhdrAMINE HCL 50 MG/1 ML VL IV PRN ×4 (03:09→21:32)
[2023-02-08 05:00] VITALS: BP 124/66
[2023-02-08] MEDS: GABAPENTIN 300 MG CAP PO SCH ×3 (05:21→21:33)
[2023-02-08] MEDS: SODIUM CHLORIDE 0.9% 1,000 ML IV SCH ×3 (06:44→23:16)
[2023-02-08] MEDS: MYCOPHENOLATE 500 MG TAB PO SCH ×2 (09:20→21:33)
[2023-02-08] MEDS: PANTOPRAZOLE 40 MG TAB PO SCH (09:20)
[2023-02-08] MEDS: MUPIROCIN 2% OINT 15gm or 22gm FOR MRSA NARES EACHNOSTRI SCH ×2 (09:20→21:33)
[2023-02-08] MEDS: FOLIC ACID 1 MG TAB PO SCH (09:21)
[2023-02-08] MEDS: CYANOCOBALAMIN (B-12) 1000 MCG/1 ML VIAL IM SCH (09:21)
[2023-02-08] MEDS: hydrOXYchloroQUINE SULFATE 200 MG TAB PO SCH ×2 (09:21→21:33)
[2023-02-08] MEDS: ENOXAPARIN SOD 40 MG/0.4 ML SYRINGE SC SCH (10:00)
[2023-02-08 13:00] VITALS: BP 154/105
[2023-02-08 14:48] LABS: Basophils # (auto) 0 10 ^3/uL (0-0.2); Basophils % (auto) 0.2 % (0.0-2.0); Eosinophils # (auto) 0 10 ^3/uL (0-0.8); Hematocrit 29.9 % (36.0-46.0); Hemoglobin 9.3 g/dL (12.2-16.2); Lymphocytes # (auto) 0.9 10 ^3/uL (0.4-5.4); Lymphocytes % (auto) 30.8 % (10.0-50.0); Mean Corpuscular Hemoglobin 22.7 pg (28.0-32.0); Monocytes # (auto) 0.4 10 ^3/uL (0-1.3); Monocytes % (auto) 15.2 % (0.0-12.0); Neutrophils # (auto) 1.5 10 ^3/uL (1.6-8.6); Neutrophils % (auto) 52.8 % (37.0-80.0); Nucleated Red Blood Cells % 0.4 %; Red Cell Distribution Width 21.9 % (11.8-14.3); White Blood Cell 2.9 10^3/uL (4.4-10.8)
[2023-02-08 15:04] LABS: Calcium 8.1 mg/dL (8.5-10.1)
[2023-02-08 17:00] VITALS: BP 140/104
[2023-02-08 22:00] VITALS: BP 138/94
[2023-02-09] MEDS: HYDROmorphone HCL 2 MG/ML VL/or syr IV PRN ×7 (02:25→20:27)
[2023-02-09] MEDS: diphenhdrAMINE HCL 50 MG/1 ML VL IV PRN ×3 (03:32→16:46)
[2023-02-09 05:00] VITALS: BP 135/93
[2023-02-09] MEDS: GABAPENTIN 300 MG CAP PO SCH ×2 (06:00→13:11)
[2023-02-09] MEDS: PANTOPRAZOLE 40 MG TAB PO SCH (09:51)
[2023-02-09] MEDS: hydrOXYchloroQUINE SULFATE 200 MG TAB PO SCH ×2 (09:51→22:17)
[2023-02-09] MEDS: FOLIC ACID 1 MG TAB PO SCH (09:51)
[2023-02-09] MEDS: CYANOCOBALAMIN (B-12) 1000 MCG/1 ML VIAL IM SCH (09:54)
[2023-02-09] MEDS: ENOXAPARIN SOD 40 MG/0.4 ML SYRINGE SC SCH (09:54)
[2023-02-09] MEDS: MYCOPHENOLATE 500 MG TAB PO SCH ×2 (09:57→22:00)
[2023-02-09] MEDS: MUPIROCIN 2% OINT 15gm or 22gm FOR MRSA NARES EACHNOSTRI SCH ×2 (09:59→22:21)
[2023-02-09 10:56] VITALS: BP 149/122
[2023-02-09 12:50] VITALS: BP 144/97
[2023-02-09] MEDS: oxyCODONE HCL 5MG TAB PO PRN ×2 (13:52→22:17)
[2023-02-09] MEDS ORDERED: METHOCARBAMOL 500 MG TAB PO PRN (15:15)
[2023-02-09 16:51] VITALS: BP 139/104
[2023-02-09] MEDS: SODIUM CHLORIDE 0.9% 1,000 ML IV SCH (20:15)
[2023-02-10] MEDS: diphenhdrAMINE HCL 50 MG/1 ML VL IV PRN ×3 (01:23→13:13)
[2023-02-10] MEDS: HYDROmorphone HCL 2 MG/ML VL/or syr IV PRN ×5 (01:24→17:22)
[2023-02-10 04:53] VITALS: BP 151/100
[2023-02-10 08:30] VITALS: BP 155/103
[2023-02-10] MEDS: oxyCODONE HCL 5MG TAB PO PRN ×3 (08:37→21:38)
[2023-02-10] MEDS: hydrALAZINE HCL 20 MG/ML VL IV PRN (08:41)
[2023-02-10] MEDS: SODIUM CHLORIDE 0.9% 1,000 ML IV SCH (08:47)
[2023-02-10 09:00] VITALS: BP 157/99
[2023-02-10] MEDS: FOLIC ACID 1 MG TAB PO SCH (09:46)
[2023-02-10] MEDS: hydrOXYchloroQUINE SULFATE 200 MG TAB PO SCH ×3 (09:46→21:44)
[2023-02-10] MEDS: MYCOPHENOLATE 500 MG TAB PO SCH ×4 (09:46→21:44)
[2023-02-10] MEDS: ENOXAPARIN SOD 40 MG/0.4 ML SYRINGE SC SCH (09:46)
[2023-02-10] MEDS: PANTOPRAZOLE 40 MG TAB PO SCH (09:47)
[2023-02-10] MEDS: CYANOCOBALAMIN (B-12) 1000 MCG/1 ML VIAL IM SCH (09:48)
[2023-02-10] MEDS: MUPIROCIN 2% OINT 15gm or 22gm FOR MRSA NARES EACHNOSTRI SCH ×2 (09:49→21:39)
[2023-02-10 13:00] VITALS: BP 145/88
[2023-02-10 16:41] VITALS: BP 149/95
[2023-02-10 20:00] VITALS: BP 120/84
[2023-02-11] MEDS: HYDROmorphone HCL 2 MG/ML VL/or syr IV PRN ×2 (01:01→08:52)
[2023-02-11] MEDS: diphenhdrAMINE HCL 50 MG/1 ML VL IV PRN ×2 (01:01→08:52)
[2023-02-11] MEDS: oxyCODONE HCL 5MG TAB PO PRN ×2 (04:05→10:46)
[2023-02-11 07:50] VITALS: BP 129/93
[2023-02-11 09:00] VITALS: BP 129/93
[2023-02-11] MEDS: FOLIC ACID 1 MG TAB PO SCH (10:21)
[2023-02-11] MEDS: hydrOXYchloroQUINE SULFATE 200 MG TAB PO SCH (10:21)
[2023-02-11] MEDS: CYANOCOBALAMIN 500 MCG TAB PO SCH (10:22)
[2023-02-11] MEDS: PANTOPRAZOLE 40 MG TAB PO SCH (10:22)
[2023-02-11] MEDS: MUPIROCIN 2% OINT 15gm or 22gm FOR MRSA NARES EACHNOSTRI SCH (10:22)
[2023-02-11] MEDS: MYCOPHENOLATE 500 MG TAB PO SCH (10:22)
[2023-02-11] MEDS ORDERED: HYDR2TAB58 PO (10:56)
[2023-02-11 13:59] VITALS: BP 129/93
== END 2023-02-11 14:25 | disposition home or self-care (01) | DRG 662 ==
LOC: EDBD 20:29 → ER 20:29 → OVERFLOW 02-05 03:44 → TELE-WESTW 02-05 13:54 → WEST WING 02-05 13:58 → TELE-WESTW 02-05 18:00
PROVIDERS: ADMIT Nurse Practitioner; ATTEND Student in an Organized Health Care Education/Training Program
DX: D57.00 Hb-SS disease with crisis, unspecified (principal); M32.9 Systemic lupus erythematosus, unspecified; E53.8 Deficiency of other specified B group vitamins; E87.6 Hypokalemia; G89.4 Chronic pain syndrome; M79.7 Fibromyalgia; M06.9 Rheumatoid arthritis, unspecified; F11.20 Opioid dependence, uncomplicated; F41.9 Anxiety disorder, unspecified; R04.0 Epistaxis; J45.909 Unspecified asthma, uncomplicated; Z80.6 Family history of leukemia; Z82.49 Family history of ischemic heart disease and other diseases of the circulatory system; Z83.2 Family history of diseases of the blood and blood-forming organs and certain disorders involving the immune mechanism; Z83.3 Family history of diabetes mellitus; Z88.1 Allergy status to other antibiotic agents; Z88.6 Allergy status to analgesic agent; Z88.5 Allergy status to narcotic agent; Z88.0 Allergy status to penicillin; Z88.8 Allergy status to other drugs, medicaments and biological substances
CPT/HCPCS: 36415; 70450; 70491; 71045; 71260; 80048; 80053; 81001; 82607; 83021; 83615; 85025; 85045; 85660; 87081; G0378; J2250; J2405; J7517; Q0162

== ENCOUNTER 2023-02-15 09:48 | Emergency (ER) | payer MEDICAID ==
[~2023-02-15] VITALS: Ht 172.7 cm; Wt 68.0 kg
[~2023-02-15 09:48] MED LIST changes: +DULO1CAP6 PO; +HYDR300T PO; -OXY5T PO
[2023-02-15] MEDS ORDERED: HALOPERIDOL LACTATE 5 MG/ML INJ VIAL IM ONE (11:15)
[2023-02-15] MEDS ORDERED: HYDROmorphone HCL 2 MG/ML VL/or syr IV ONE ×2 (11:15→14:45)
[2023-02-15] MEDS ORDERED: LORazepam 2MG/ML-1ML VIAL IV ONE (11:15)
[2023-02-15] MEDS ORDERED: SODIUM CHLORIDE 0.9% 1,000 ML IVB ONE (11:30)
[2023-02-15] MEDS ORDERED: ONDANSETRON HCL 4 MG/2 ML VIAL IV ONE (11:30)
[2023-02-15 11:47] VITALS: TEMP 99
[2023-02-15 11:48] LABS: Basophils # (auto) 0 10 ^3/uL (0-0.2); Basophils % (auto) 0.7 % (0.0-2.0); Eosinophils # (auto) 0 10 ^3/uL (0-0.8); Eosinophils % (auto) 0.1 % (0.0-7.0); Hematocrit 35.9 % (36.0-46.0); Hemoglobin 11.4 g/dL (12.2-16.2); Lymphocytes # (auto) 0.9 10 ^3/uL (0.4-5.4); Lymphocytes % (auto) 30.1 % (10.0-50.0); Mean Corpuscular Hemoglobin 23.1 pg (28.0-32.0); Mean Corpuscular Hgb Conc. 31.7 g/dL (32.0-36.0); Mean Corpuscular Volume 72.8 fL (80.0-100.0); Monocytes # (auto) 0.3 10 ^3/uL (0-1.3); Monocytes % (auto) 9.8 % (0.0-12.0); Neutrophils # (auto) 1.8 10 ^3/uL (1.6-8.6); Neutrophils % (auto) 59.3 % (37.0-80.0); Nucleated Red Blood Cells % 0.3 %; Red Blood Cells 4.93 10^6/uL (4.0-5.20); Red Cell Distribution Width 22.2 % (11.8-14.3)
[2023-02-15 12:08] LABS: Albumin 3.4 g/dL (3.4-5.0); Anion Gap 7 (5-15); Blood Urea Nitrogen 8 mg/dL (7-18); Calcium 9.3 mg/dL (8.5-10.1); Carbon Dioxide 22 mmol/L (21-32); Chloride 112 mmol/L (98-107); Magnesium 2.1 mg/dL (1.6-2.6); Potassium 3.9 mmol/L (3.5-5.1); Sodium 141 mmol/L (136-145)
[2023-02-15 12:14] LABS: Alanine Aminotransferase 13 U/L (13-56); Alkaline Phosphatase 104 U/L (45-117); Aspartate Aminotransferase 24 U/L (15-37); BUN/Creatinine Ratio 11.6 (10.0-20.0); Bilirubin, Total 0.4 mg/dL (0.2-1.0); Blood Alcohol < 3.0 mg/dL (<10); GFR African American 131 mL/min; GFR Non-African American 108 mL/min; Glucose 91 mg/dL (74-106); Lipase 31 U/L (73-393); Total Protein 8.5 g/dL (6.4-8.2)
[2023-02-15 13:23] LABS: INR 1.06 (0.9-1.15); Partial Thromboplastin Time 28.2 SEC (24.5-34.5)
[2023-02-15 14:13] VITALS: O2SAT 98
[2023-02-15] MEDS ORDERED: LABETALOL HCL 5 MG/ML 4ML SYRINGE IV ONE (15:45)
[2023-02-15 16:00] VITALS: BP 142/94; PULSE 97; RESP 10
== END 2023-02-15 15:36 | disposition home or self-care (01) ==
LOC: ER 09:48 → EDBD 09:48 → ER 15:36
DX: D57.1 Sickle-cell disease without crisis (principal); J45.909 Unspecified asthma, uncomplicated; Z79.899 Other long term (current) drug therapy
CPT/HCPCS: 36415; 71045; 80053; 80320; 83615; 83690; 83735; 84484; 85025; 85045; 85610; 85730; 96361; 96372; 96374; 96375; 96376; 99285; J1170; J1630; J2060; J2405; J7030

== ENCOUNTER 2023-02-27 14:33 | Inpatient (IN) | payer MEDICAID ==
[~2023-02-27] VITALS: Ht 170.2 cm; Wt 66.2 kg
[2023-02-27 14:50] VITALS: PULSE 131; RESP 22; O2SAT 96
[2023-02-27] MEDS ORDERED: SODIUM CHLORIDE 0.9% 2,000 ML IV ONE ×2 (15:30→19:45)
[2023-02-27 16:14] LABS: Basophils # (auto) 0 10 ^3/uL (0-0.2); Basophils % (auto) 0.5 % (0.0-2.0); Eosinophils # (auto) 0 10 ^3/uL (0-0.8); Eosinophils % (auto) 0.1 % (0.0-7.0); Hematocrit 32.7 % (36.0-46.0); Hemoglobin 10.3 g/dL (12.2-16.2); Lymphocytes # (auto) 0.6 10 ^3/uL (0.4-5.4); Lymphocytes % (auto) 21.6 % (10.0-50.0); Mean Corpuscular Hemoglobin 24.7 pg (28.0-32.0); Mean Corpuscular Hgb Conc. 31.6 g/dL (32.0-36.0); Mean Corpuscular Volume 78.1 fL (80.0-100.0); Monocytes # (auto) 0.4 10 ^3/uL (0-1.3); Monocytes % (auto) 14.5 % (0.0-12.0); Neutrophils # (auto) 1.7 10 ^3/uL (1.6-8.6); Neutrophils % (auto) 63.3 % (37.0-80.0); Nucleated Red Blood Cells % 0.1 %; Red Blood Cells 4.18 10^6/uL (4.0-5.20); Red Cell Distribution Width 20.3 % (11.8-14.3); White Blood Cell 2.6 10^3/uL (4.4-10.8)
[2023-02-27] MEDS ORDERED: HYDROmorphone HCL 2 MG/ML VL/or syr IV ONE ×3 (16:15→21:30)
[2023-02-27] MEDS ORDERED: PROCHLORPERAZINE EDISYLATE 5 MG/ML 2ML VIAL IV ONE (16:15)
[2023-02-27 16:25] LABS: Calcium 8.2 mg/dL (8.5-10.1)
[2023-02-27 16:31] LABS: Albumin 2.8 g/dL (3.4-5.0); BUN/Creatinine Ratio 6.1 (10.0-20.0); Bilirubin, Total 0.2 mg/dL (0.2-1.0); Total Protein 7.8 g/dL (6.4-8.2)
[2023-02-27] MEDS ORDERED: POTASSIUM EFFERVESENT TAB 25 MEQ PO ONE (19:45)
[2023-02-27 20:00] VITALS: PULSE 100; RESP 17; O2SAT 96
[2023-02-27] MEDS: MAGNESIUM SULFATE 1GM/100ML 100 ML IV SCH ×2 (20:36→21:09)
[2023-02-27] MEDS ORDERED: PROCHLORPERAZINE EDISYLATE 5 MG/ML 2ML VIAL IV PRN (22:15)
[2023-02-27] MEDS ORDERED: DOCUSATE SOD 100 MG CAP PO PRN (22:15)
[2023-02-27] MEDS ORDERED: NITROGLYCERIN 0.4 MG SL TAB SL PRN (22:45)
[2023-02-27] MEDS: HYDROmorphone HCL 2 MG/ML VL/or syr IV PRN (23:37)
[2023-02-27] MEDS: SOD CHL 0.45% 1,000 ML IV SCH (23:37)
[2023-02-28] VITALS (7 sets, daily range): BP systolic 122–150; BP diastolic 35–100; PULSE 92–113; RESP 16–20; TEMP 97.6–99; O2SAT 96–100
[2023-02-28] MEDS: ALPRAZolam 0.5 MG TAB PO PRN ×2 (00:52→20:23)
[2023-02-28] MEDS ORDERED: HYDR200T36 PO (02:42)
[2023-02-28] MEDS ORDERED: PREG300C49 PO (02:42)
[2023-02-28] MEDS ORDERED: NIFE1TAB31 PO (02:42)
[2023-02-28] MEDS ORDERED: METO25TA93 PO (02:42)
[2023-02-28] MEDS: HYDROmorphone HCL 2 MG/ML VL/or syr IV PRN ×5 (03:46→20:30)
[2023-02-28] MEDS ORDERED: MULTIPLE VITAMINS W/ MINERALS TAB PO ONE (09:45)
[2023-02-28] MEDS: OXYCODONE W/ ACETAMINOPHEN 5/325MG TABLET PO PRN ×4 (11:10→23:21)
[2023-02-28] MEDS: SOD CHL 0.45% 1,000 ML IV SCH ×3 (11:10→18:33)
[2023-02-28] MEDS: D5W/SOD CHL 0.45%/KCL 20MEQ 1,000 ML IV SCH (12:26)
[2023-02-28 13:47] LABS: Basophils # (auto) 0 10 ^3/uL (0-0.2); Basophils % (auto) 0.4 % (0.0-2.0); Eosinophils # (auto) 0 10 ^3/uL (0-0.8); Eosinophils % (auto) 0.7 % (0.0-7.0); Hematocrit 29.4 % (36.0-46.0); Hemoglobin 9.5 g/dL (12.2-16.2); Lymphocytes # (auto) 0.9 10 ^3/uL (0.4-5.4); Lymphocytes % (auto) 29.7 % (10.0-50.0); Mean Corpuscular Hemoglobin 25.9 pg (28.0-32.0); Mean Corpuscular Hgb Conc. 32.4 g/dL (32.0-36.0); Monocytes # (auto) 0.3 10 ^3/uL (0-1.3); Monocytes % (auto) 10.8 % (0.0-12.0); Neutrophils # (auto) 1.7 10 ^3/uL (1.6-8.6); Neutrophils % (auto) 58.4 % (37.0-80.0); Nucleated Red Blood Cells % 0.5 %; Red Blood Cells 3.67 10^6/uL (4.0-5.20); Red Cell Distribution Width 20.5 % (11.8-14.3); White Blood Cell 2.9 10^3/uL (4.4-10.8)
[2023-02-28 13:55] LABS: Albumin 2.6 g/dL (3.4-5.0); Calcium 8.2 mg/dL (8.5-10.1)
[2023-02-28 14:20] LABS: Bilirubin, Total 0.1 mg/dL (0.2-1.0); Total Protein 7.3 g/dL (6.4-8.2)
[2023-02-28 14:28] LABS: Potassium 3.8 mmol/L (3.5-5.1)
[2023-02-28 14:32] LABS: BUN/Creatinine Ratio 6.5 (10.0-20.0)
[2023-02-28] MEDS ORDERED: PRED20TA2 PO (16:13)
[2023-02-28] MEDS ORDERED: PREG200C59 PO (16:13)
[2023-02-28] MEDS ORDERED: MYCO250C PO (16:16)
[2023-02-28 18:51] LABS: Urine Bacteria FEW /hpf (None Seen); Urine Blood Negative /uL (Negative); Urine Specific Gravity 1.013 (1.001-1.035); Urine WBC 4 /hpf (0 - 5)
[2023-03-01] VITALS (7 sets, daily range): BP systolic 125–146; BP diastolic 78–105; PULSE 83–110; RESP 17–20; TEMP 97.8–98.5; O2SAT 96–100
[2023-03-01] MEDS: D5W/SOD CHL 0.45%/KCL 20MEQ 1,000 ML IV SCH ×2 (00:32→16:25)
[2023-03-01] MEDS: HYDROmorphone HCL 2 MG/ML VL/or syr IV PRN ×6 (00:32→20:33)
[2023-03-01] MEDS: OXYCODONE W/ ACETAMINOPHEN 5/325MG TABLET PO PRN ×6 (03:19→23:14)
[2023-03-01] MEDS: SOD CHL 0.45% 1,000 ML IV SCH ×2 (04:15→14:15)
[2023-03-01] MEDS: ALPRAZolam 0.5 MG TAB PO PRN ×2 (04:28→20:33)
[2023-03-01] MEDS ORDERED: PREGABALIN 25 MG CAP PO SCH ×2 (10:00→10:30)
[2023-03-01] MEDS: METOPROLOL SUCCINATE PO SCH (10:00)
[2023-03-01] MEDS: MYCOPHENOLATE 250 MG CAP PO SCH (10:00)
[2023-03-01] MEDS: MULTIPLE VITAMINS W/ MINERALS TAB PO SCH ×2 (11:14→11:20)
[2023-03-01] MEDS: DOCUSATE SOD 100 MG CAP PO SCH ×2 (11:15→22:00)
[2023-03-01] MEDS: NIFEdipine ER 30 MG TAB PO SCH (11:15)
[2023-03-01] MEDS: hydrOXYchloroQUINE SULFATE 200 MG TAB PO SCH ×2 (11:15→22:00)
[2023-03-01] MEDS: predniSONE 20 MG TAB PO SCH (11:15)
[2023-03-01] MEDS: PREGABALIN CAPSULE 75 MG CAP PO SCH (22:00)
[2023-03-01] MEDS: PREGABALIN 25 MG CAP PO SCH (22:00)
[2023-03-02] VITALS (7 sets, daily range): BP systolic 109–148; BP diastolic 75–110; PULSE 84–122; RESP 16–20; TEMP 97.8–98.5; O2SAT 95–100
[2023-03-02] MEDS: SOD CHL 0.45% 1,000 ML IV SCH (00:15)
[2023-03-02] MEDS: HYDROmorphone HCL 2 MG/ML VL/or syr IV PRN ×5 (00:30→21:11)
[2023-03-02] MEDS: OXYCODONE W/ ACETAMINOPHEN 5/325MG TABLET PO PRN ×4 (03:23→17:37)
[2023-03-02] MEDS: D5W/SOD CHL 0.45%/KCL 20MEQ 1,000 ML IV SCH (04:27)
[2023-03-02] MEDS: METOPROLOL SUCCINATE PO SCH (10:00)
[2023-03-02] MEDS: MULTIPLE VITAMINS W/ MINERALS TAB PO SCH (10:00)
[2023-03-02] MEDS: DOCUSATE SOD 100 MG CAP PO SCH ×2 (10:00→21:20)
[2023-03-02] MEDS: hydrOXYchloroQUINE SULFATE 200 MG TAB PO SCH ×2 (11:29→21:21)
[2023-03-02] MEDS: PREGABALIN CAPSULE 75 MG CAP PO SCH ×2 (11:29→21:20)
[2023-03-02] MEDS: PREGABALIN 25 MG CAP PO SCH ×2 (11:29→21:20)
[2023-03-02] MEDS: predniSONE 20 MG TAB PO SCH (11:29)
[2023-03-02] MEDS: NIFEdipine ER 30 MG TAB PO SCH (11:30)
[2023-03-02] MEDS: MYCOPHENOLATE 250 MG CAP PO SCH (11:32)
[2023-03-03] MEDS: HYDROmorphone HCL 2 MG/ML VL/or syr IV PRN ×2 (04:19→10:02)
[2023-03-03 05:00] VITALS: BP 120/78; PULSE 104; RESP 18; TEMP 99; O2SAT 98
[2023-03-03] MEDS: OXYCODONE W/ ACETAMINOPHEN 5/325MG TABLET PO PRN (05:54)
[2023-03-03] MEDS: METOPROLOL SUCCINATE PO SCH ×2 (07:34→10:03)
[2023-03-03 08:00] VITALS: PULSE 109
[2023-03-03 08:47] VITALS: BP 128/82; PULSE 104; RESP 17; TEMP 98.2; O2SAT 98
[2023-03-03] MEDS: PREGABALIN 25 MG CAP PO SCH ×2 (10:00→10:03)
[2023-03-03] MEDS: MYCOPHENOLATE 250 MG CAP PO SCH ×2 (10:00→10:09)
[2023-03-03] MEDS: PREGABALIN CAPSULE 75 MG CAP PO SCH ×2 (10:00→10:03)
[2023-03-03] MEDS: predniSONE 20 MG TAB PO SCH ×2 (10:00→10:03)
[2023-03-03] MEDS: hydrOXYchloroQUINE SULFATE 200 MG TAB PO SCH ×2 (10:00→10:02)
[2023-03-03] MEDS: DOCUSATE SOD 100 MG CAP PO SCH (10:00)
[2023-03-03] MEDS: MULTIPLE VITAMINS W/ MINERALS TAB PO SCH (10:00)
[2023-03-03] MEDS: NIFEdipine ER 30 MG TAB PO SCH ×2 (10:00→10:03)
[2023-03-03 10:02] VITALS: BP 128/82; PULSE 104; RESP 17
[2023-03-03] MEDS ORDERED: HYDR-4902 PO (10:38)
== END 2023-03-03 14:26 | disposition home or self-care (01) | DRG 662 ==
LOC: EDBD 14:33 → ER 14:33 → TELE 22:41 → TELE-EAST 22:49
PROVIDERS: ADMIT Internal Medicine Pulmonary Disease; ATTEND Internal Medicine Pulmonary Disease
DX: D57.00 Hb-SS disease with crisis, unspecified (principal); M32.14 Glomerular disease in systemic lupus erythematosus; E44.1 Mild protein-calorie malnutrition; E88.09 Other disorders of plasma-protein metabolism, not elsewhere classified; D72.819 Decreased white blood cell count, unspecified; E87.6 Hypokalemia; R00.0 Tachycardia, unspecified; E53.8 Deficiency of other specified B group vitamins; M06.9 Rheumatoid arthritis, unspecified; M79.7 Fibromyalgia; Z63.4 Disappearance and death of family member; J45.909 Unspecified asthma, uncomplicated; Z79.01 Long term (current) use of anticoagulants; Z88.6 Allergy status to analgesic agent; Z88.1 Allergy status to other antibiotic agents; Z86.718 Personal history of other venous thrombosis and embolism; Z83.3 Family history of diabetes mellitus; Z83.2 Family history of diseases of the blood and blood-forming organs and certain disorders involving the immune mechanism; Z82.49 Family history of ischemic heart disease and other diseases of the circulatory system; Z80.6 Family history of leukemia; Z68.22 Body mass index [BMI] 22.0-22.9, adult
CPT/HCPCS: 36415; 80053; 81001; 85025; 85045; G0378; J7517

== ENCOUNTER 2023-03-13 02:57 | Inpatient (IN) | payer MEDICAID ==
[~2023-03-13] VITALS: Ht 165.1 cm; Wt 22.1 kg
[~2023-03-13 02:57] MED LIST changes: -CYAN1TAB14 PO; -FOLI-119 PO; +HYDR-4902 PO; +HYDR200T36 PO; -HYDR300T PO; +METO25TA93 PO; +MYCO250C PO; +NIFE1TAB31 PO; -PANT40T PO; -PRED10TA PO; +PRED20TA2 PO; +PREG200C59 PO
[2023-03-13 03:45] VITALS: PULSE 130; RESP 17; O2SAT 98
[2023-03-13] MEDS ORDERED: SODIUM CHLORIDE 0.9% 1,000 ML IV ONE (03:45)
[2023-03-13] MEDS ORDERED: HYDROmorphone HCL 2 MG/ML VL/or syr IV ONE ×4 (03:45→11:30)
[2023-03-13] MEDS ORDERED: diphenhdrAMINE HCL 50 MG/1 ML VL IV ONE ×3 (03:45→09:45)
[2023-03-13] MEDS ORDERED: ONDANSETRON HCL 4 MG/2 ML VIAL IV ONE ×3 (03:45→09:45)
[2023-03-13 04:53] LABS: Basophils # (auto) 0 10 ^3/uL (0-0.2); Eosinophils # (auto) 0 10 ^3/uL (0-0.8); Lymphocytes # (auto) 0.9 10 ^3/uL (0.4-5.4); Mean Corpuscular Volume 74.3 fL (80.0-100.0); Monocytes # (auto) 0.3 10 ^3/uL (0-1.3); Neutrophils # (auto) 3.5 10 ^3/uL (1.6-8.6); Nucleated Red Blood Cells % 0.2 %; White Blood Cell 4.8 10^3/uL (4.4-10.8)
[2023-03-13 04:56] LABS: Basophils % (auto) 0.7 % (0.0-2.0); Eosinophils % (auto) 0.3 % (0.0-7.0); Hematocrit 31.8 % (36.0-46.0); Lymphocytes % (auto) 19.4 % (10.0-50.0); Mean Corpuscular Hemoglobin 23.5 pg (28.0-32.0); Mean Corpuscular Hgb Conc. 31.6 g/dL (32.0-36.0); Monocytes % (auto) 6.8 % (0.0-12.0); Neutrophils % (auto) 72.8 % (37.0-80.0); Red Blood Cells 4.28 10^6/uL (4.0-5.20)
[2023-03-13 04:58] LABS: Red Cell Distribution Width 21.5 % (11.8-14.3)
[2023-03-13 05:07] LABS: Albumin 3.1 g/dL (3.4-5.0); Calcium 8.3 mg/dL (8.5-10.1); Potassium 3.9 mmol/L (3.5-5.1)
[2023-03-13 05:11] LABS: BUN/Creatinine Ratio 9.9 (10.0-20.0); Bilirubin, Total 0.2 mg/dL (0.2-1.0); Total Protein 7.8 g/dL (6.4-8.2)
[2023-03-13 07:50] VITALS: PULSE 97; RESP 14; O2SAT 100
[2023-03-13] MEDS ORDERED: PROMETHAZINE HCL 25 MG/ML 1ML IV ONE (11:30)
[2023-03-13] MEDS ORDERED: ONDANSETRON HCL 4 MG/2 ML VIAL IV PRN (11:30)
[2023-03-13] MEDS ORDERED: diphenhdrAMINE HCL 25 MG CAP PO PRN (11:30)
[2023-03-13] MEDS: MULTIPLE VITAMIN TAB PO SCH (12:19)
[2023-03-13] MEDS: FOLIC ACID 1 MG TAB PO SCH (12:19)
[2023-03-13] MEDS: SODIUM CHLORIDE 0.9% 1,000 ML IV SCH ×2 (12:20→19:30)
[2023-03-13] MEDS: HYDROmorphone HCL 2 MG TAB PO PRN ×2 (15:05→20:41)
[2023-03-13 15:26] VITALS: TEMP 98.5
[2023-03-13 20:00] VITALS: PULSE 92; RESP 20
[2023-03-14] MEDS: HYDROmorphone HCL 2 MG TAB PO PRN ×3 (01:28→12:31)
[2023-03-14] MEDS ORDERED: HYDROmorphone HCL 2 MG/ML VL/or syr IV ONE (04:30)
[2023-03-14] MEDS: SODIUM CHLORIDE 0.9% 1,000 ML IV SCH ×2 (04:59→11:26)
[2023-03-14 09:00] VITALS: BP 123/89; PULSE 94; RESP 18; TEMP 98.3; O2SAT 99
[2023-03-14] MEDS: FOLIC ACID 1 MG TAB PO SCH (09:56)
[2023-03-14] MEDS: MULTIPLE VITAMIN TAB PO SCH (09:56)
[2023-03-14] MEDS ORDERED: METOPROLOL SUCCINATE XL 50 MG TAB PO SCH (10:00)
[2023-03-14] MEDS ORDERED: VENLAFAXINE HCL 37.5mg XR cap PO SCH (10:00)
[2023-03-14 12:38] VITALS: BP 142/97; PULSE 121; RESP 20; TEMP 98.5; O2SAT 99
[2023-03-14] MEDS ORDERED: CYAN100061 PO (12:39)
[2023-03-14] MEDS ORDERED: CYANOCOBALAMIN (B-12) 1000 MCG/1 ML VIAL IM ONE (12:45)
[2023-03-14 12:50] VITALS: TEMP 36.9
== END 2023-03-14 13:50 | disposition home or self-care (01) | DRG 662 ==
LOC: ER 03:00 → OVERFLOW 11:36 → WEST WING 15:36
PROVIDERS: ADMIT Internal Medicine; ATTEND Internal Medicine
DX: D57.00 Hb-SS disease with crisis, unspecified (principal); E44.0 Moderate protein-calorie malnutrition; G89.4 Chronic pain syndrome; D50.9 Iron deficiency anemia, unspecified; F03.94 Unspecified dementia, unspecified severity, with anxiety; F11.20 Opioid dependence, uncomplicated; J45.909 Unspecified asthma, uncomplicated; M19.90 Unspecified osteoarthritis, unspecified site; Z80.9 Family history of malignant neoplasm, unspecified; Z88.0 Allergy status to penicillin; Z88.6 Allergy status to analgesic agent; Z88.8 Allergy status to other drugs, medicaments and biological substances; Z83.2 Family history of diseases of the blood and blood-forming organs and certain disorders involving the immune mechanism; Z88.1 Allergy status to other antibiotic agents; Z98.891 History of uterine scar from previous surgery; Z68.1 Body mass index [BMI] 19.9 or less, adult; Z76.5 Malingerer [conscious simulation]
CPT/HCPCS: 36415; 71045; 80053; 83615; 84484; 85025; 85045; 93005; 96361; 96374; 96375; 96376; G0378; J2405

== ENCOUNTER 2023-03-20 10:29 | Emergency (ER) | payer MEDICAID ==
[~2023-03-20] VITALS: Ht 167.6 cm; Wt 63.0 kg
[~2023-03-20 10:29] MED LIST changes: +CYAN100061 PO
[2023-03-20 10:41] VITALS: BP 162/121; PULSE 115; RESP 18; O2SAT 98
[2023-03-20] MEDS ORDERED: SODIUM CHLORIDE 0.9% 1,000 ML IV ONE (11:00)
[2023-03-20] MEDS ORDERED: HYDROmorphone HCL 2 MG/ML VL/or syr IV ONE (11:30)
== END 2023-03-20 14:17 | disposition home or self-care (01) ==
LOC: EDBD 10:29 → ER 10:29
DX: D57.1 Sickle-cell disease without crisis (principal); R10.84 Generalized abdominal pain; F41.9 Anxiety disorder, unspecified; J45.909 Unspecified asthma, uncomplicated; Z86.73 Personal history of transient ischemic attack (TIA), and cerebral infarction without residual deficits; Z98.890 Other specified postprocedural states; Z53.29 Procedure and treatment not carried out because of patient's decision for other reasons

== ENCOUNTER 2023-04-01 01:24 | Emergency (ER) | payer MEDICAID ==
[~2023-04-01] VITALS: Ht 167.6 cm; Wt 70.0 kg
[2023-04-01] MEDS ORDERED: diphenhdrAMINE HCL 50 MG/1 ML VL IM ONE (02:00)
[2023-04-01] MEDS ORDERED: HYDROmorphone HCL 2 MG/ML VL/or syr IM ONE (02:00)
[2023-04-01] MEDS ORDERED: METOCLOPRAMIDE HCL 5MG/ml INJ 2ml VIAL IM ONE (02:00)
[2023-04-01 02:50] VITALS: O2SAT 98
[2023-04-01] MEDS ORDERED: ONDANSETRON ODT 4 MG TAB PO ONE (03:15)
[2023-04-01] MEDS ORDERED: HYDR2TAB58 PO (03:45)
[2023-04-01] MEDS ORDERED: ZOFR4T PO (03:45)
[2023-04-01 04:15] VITALS: BP 156/94; PULSE 97; RESP 12; TEMP 98.6; O2SAT 100
== END 2023-04-01 04:27 | disposition home or self-care (01) ==
LOC: ER 01:24 → EDBD 01:24 → ER 04:20
DX: D57.00 Hb-SS disease with crisis, unspecified (principal); M79.10 Myalgia, unspecified site; F41.9 Anxiety disorder, unspecified; M19.90 Unspecified osteoarthritis, unspecified site; J45.909 Unspecified asthma, uncomplicated; Z86.73 Personal history of transient ischemic attack (TIA), and cerebral infarction without residual deficits; Z98.890 Other specified postprocedural states
CPT/HCPCS: 96372; 99285; J1170; J1200; J2765; Q0162

== ENCOUNTER 2023-04-03 03:18 | Emergency (ER) | payer MEDICAID ==
[~2023-04-03] VITALS: Ht 165.1 cm; Wt 70.0 kg
[~2023-04-03 03:18] MED LIST changes: +ZOFR4T PO
[2023-04-03 03:38] VITALS: TEMP 98.8
[2023-04-03] MEDS ORDERED: fentaNYL CITRATE 100 MCG/2 ML VL IM ONE (04:15)
[2023-04-03 04:36] LABS: Basophils # (auto) 0 10 ^3/uL (0-0.2); Basophils % (auto) 0.4 % (0.0-2.0); Eosinophils # (auto) 0 10 ^3/uL (0-0.8); Eosinophils % (auto) 0.2 % (0.0-7.0); Hemoglobin 10.1 g/dL (12.2-16.2); Mean Corpuscular Hgb Conc. 31.8 g/dL (32.0-36.0); Monocytes # (auto) 0.3 10 ^3/uL (0-1.3); Neutrophils # (auto) 1.4 10 ^3/uL (1.6-8.6); White Blood Cell 2.7 10^3/uL (4.4-10.8)
[2023-04-03 04:40] LABS: Hematocrit 31.7 % (36.0-46.0); Lymphocytes % (auto) 37.4 % (10.0-50.0); Mean Corpuscular Hemoglobin 25.2 pg (28.0-32.0); Mean Corpuscular Volume 79.3 fL (80.0-100.0); Monocytes % (auto) 9.9 % (0.0-12.0); Neutrophils % (auto) 52.1 % (37.0-80.0); Nucleated Red Blood Cells % 0.9 %; Red Blood Cells 4.01 10^6/uL (4.0-5.20)
[2023-04-03 04:52] LABS: Red Cell Distribution Width 20.3 % (11.8-14.3)
[2023-04-03 05:14] LABS: Alanine Aminotransferase 11 U/L (7-40); Albumin 3.5 g/dL (3.2-4.8); Alkaline Phosphatase 136 U/L (46-116); Anion Gap 8.3 (5-15); Aspartate Aminotransferase 36 U/L (13-40); Bilirubin, Total 0.3 mg/dL (0.2-1.0); Calcium 8.3 mg/dL (8.7-10.4); Carbon Dioxide 21.7 mmol/L (20-30); Chloride 109 mmol/L (98-107); Glucose 97 mg/dL (74-106); Potassium 3.9 mmol/L (3.5-5.1); Sodium 139 mmol/L (136-145)
[2023-04-03 05:15] LABS: Total Protein 7.2 g/dL (5.7-8.2)
[2023-04-03 05:28] LABS: BUN/Creatinine Ratio 6.6 (10.0-20.0); Blood Urea Nitrogen < 5 mg/dL (9-23)
[2023-04-03 06:00] LABS: CRP High Sensitivity 2.32 mg/dL (<1.0)
[2023-04-03] MEDS ORDERED: HYDROmorphone HCL 2 MG/ML VL/or syr IM ONE (06:00)
[2023-04-03 06:23] VITALS: BP 135/114
[2023-04-03 07:01] VITALS: PULSE 113; RESP 20; O2SAT 99
== END 2023-04-03 06:09 | disposition home or self-care (01) ==
LOC: EDBD 03:18 → ER 03:18
DX: D57.1 Sickle-cell disease without crisis (principal); D57.00 Hb-SS disease with crisis, unspecified; G89.4 Chronic pain syndrome; F41.9 Anxiety disorder, unspecified; J45.909 Unspecified asthma, uncomplicated; Z86.73 Personal history of transient ischemic attack (TIA), and cerebral infarction without residual deficits; Z98.890 Other specified postprocedural states
CPT/HCPCS: 36415; 80053; 85025; 85045; 86141; 96372; 99285; J1170; J3010

== ENCOUNTER 2023-04-06 16:01 | Emergency (ER) | payer MEDICAID ==
[~2023-04-06] VITALS: Ht 165.1 cm; Wt 64.0 kg
[2023-04-06 16:35] VITALS: O2SAT 98
[2023-04-06] MEDS ORDERED: diphenhdrAMINE HCL 50 MG/1 ML VL IM ONE (16:45)
[2023-04-06] MEDS ORDERED: HYDROmorphone HCL 2 MG/ML VL/or syr IM ONE (16:45)
[2023-04-06 18:23] VITALS: BP 154/99; PULSE 99; RESP 19
== END 2023-04-06 18:39 | disposition home or self-care (01) ==
LOC: EDBD 16:01 → ER 16:01
DX: D57.1 Sickle-cell disease without crisis (principal); G89.4 Chronic pain syndrome; J45.909 Unspecified asthma, uncomplicated; Z86.73 Personal history of transient ischemic attack (TIA), and cerebral infarction without residual deficits
CPT/HCPCS: 96372; 99284; J1170; J1200

== ENCOUNTER 2023-04-11 10:34 | Emergency (ER) | payer MEDICAID ==
[~2023-04-11] VITALS: Ht 165.1 cm; Wt 6.0 kg
[2023-04-11] MEDS ORDERED: HYDROmorphone HCL 2 MG/ML VL/or syr IV ONE (10:45)
[2023-04-11] MEDS ORDERED: ONDANSETRON HCL 4 MG/2 ML VIAL IV ONE (10:45)
[2023-04-11] MEDS ORDERED: SODIUM CHLORIDE 0.9% 1,000 ML IV ONE (10:45)
[2023-04-11 12:12] VITALS: BP 146/110
[2023-04-11 12:13] VITALS: PULSE 134; RESP 15; O2SAT 99
== END 2023-04-11 17:10 | disposition left against medical advice (07) ==
LOC: ER 10:34 → EDBD 10:34 → ER 17:10
DX: D57.1 Sickle-cell disease without crisis (principal); F11.20 Opioid dependence, uncomplicated; J45.909 Unspecified asthma, uncomplicated; F41.9 Anxiety disorder, unspecified; Z86.73 Personal history of transient ischemic attack (TIA), and cerebral infarction without residual deficits
CPT/HCPCS: 96374; 96375; 99284; J1170; J2405

== ENCOUNTER 2023-04-24 18:43 | Emergency (ER) | payer MEDICAID ==
[~2023-04-24] VITALS: Ht 162.6 cm; Wt 68.2 kg
[2023-04-24 18:48] VITALS: O2SAT 100
[2023-04-24] MEDS ORDERED: METOCLOPRAMIDE HCL 5MG/ml INJ 2ml VIAL IM ONE (19:45)
[2023-04-24] MEDS ORDERED: HYDROmorphone HCL 2 MG/ML VL/or syr IM ONE (19:45)
[2023-04-24] MEDS ORDERED: ONDANSETRON HCL 4 MG/2 ML VIAL IM ONE (19:45)
[2023-04-24 20:26] VITALS: BP 124/94; PULSE 102; RESP 17
== END 2023-04-24 21:02 | disposition home or self-care (01) ==
LOC: ER 18:43 → EDBD 18:43 → ER 21:02
DX: R10.13 Epigastric pain (principal); D57.1 Sickle-cell disease without crisis; J45.909 Unspecified asthma, uncomplicated; Z86.73 Personal history of transient ischemic attack (TIA), and cerebral infarction without residual deficits
CPT/HCPCS: 96372; 99284; J1170; J2405; J2765

== ENCOUNTER 2023-05-16 09:42 | Emergency (ER) | payer MEDICAID ==
[~2023-05-16] VITALS: Ht 165.1 cm; Wt 64.0 kg
[2023-05-16 10:14] VITALS: O2SAT 96
[2023-05-16] MEDS ORDERED: LORazepam 0.5 MG TAB PO ONE (11:00)
[2023-05-16] MEDS ORDERED: HYDROmorphone HCL 2 MG/ML VL/or syr IM ONE (11:00)
[2023-05-16] MEDS ORDERED: ONDANSETRON ODT 4 MG TAB PO ONE (11:00)
[2023-05-16 11:49] VITALS: BP 150/97; PULSE 101; RESP 19
== END 2023-05-16 11:56 | disposition home or self-care (01) ==
LOC: EDUNIT# 09:42 → EDBD 09:42 → ER 09:42
DX: D57.1 Sickle-cell disease without crisis (principal); F11.20 Opioid dependence, uncomplicated; M25.559 Pain in unspecified hip; G89.29 Other chronic pain; Z79.899 Other long term (current) drug therapy; Z88.0 Allergy status to penicillin
CPT/HCPCS: 96372; 99283; J1170; Q0162